=== PATIENT | male | born 1950 | race American Indian/Alaskan Native ===

== ENCOUNTER 2018-06-21 22:00 | Inpatient (IN) | payer MEDICARE ==
--- NOTE | 2018-06-21 22:45 | Emergency Department Report ---
HPI - General Chief Complaint: Back Pain/Injury Time Seen by Provider: 06/21/18 22:16 - HPI HPI: 68-year-old male presents to the emergency department by EMS from home with complaint of having some shakes and/or bodily convulsions that been going on for the past 3 days. He says that he had a fall on Friday as well but did not have any loss of consciousness or hit his head. The shakes and /or convulsions of them going on since that time but he is unsure whether they are related. He has a past medical history of end-stage renal disease on hemodialysis on Friday//Friday, hypertension, previous pulmonary embolism. He missed his last dialysis session yesterday. He has not taken anything for his symptoms prior to presentation. His primary care physician is Dr. 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 No recent travel or sick contacts at home. ED Past Medical Hx - Past Medical History Previous Medical History?: Yes Hx Hypertension: No Hx Heart Attack/AMI: No Hx Congestive Heart Failure: No Hx Diabetes: Yes Hx Deep Vein Thrombosis: No Hx Pulmonary Embolism: No Hx Liver Disease: No Hx Renal Disease: Yes Hx Arthritis: No Hx Seizures: No Hx Kidney Stones: No Hx Asthma: No Hx COPD: No Hx Tuberculosis: No Hx Dementia: No Hx HIV: No Additional medical history: dialysis - Surgical History Past Surgical History?: Yes Hx Coronary Stent: No Hx Pacemaker: No Hx Internal Defibrillator: No Hx Cholecystectomy: Yes Additional Surgical History: right chest perm cath, rotator cuff repair, carpal tunnel surgery - Social History Smoking Status: Former Smoker Substance Use Type: None - Medications Home Medications: Home Medications Medication Instructions Recorded Confirmed Last Taken Type Combivent Inhaler 18 - 103 inhalation INHALATION BID 04/12/17 06/22/18 05/24/17 History Crestor 20 mg PO QHS 04/12/17 06/22/18 05/24/17 History Omeprazole 20 mg PO QAM 04/12/17 06/22/18 05/24/17 History Sodium Bicarbonate 650 mg PO TID 04/12/17 06/22/18 05/24/17 History AtorvaSTATin [Lipitor] 40 mg PO QHS tablet 04/16/17 06/22/18 04/25/17 23:00 Rx 40 mg Detemir (Nf) [Levemir (Nf)] 8 units SUB-Q QAMDIAB units 04/16/17 05/25/1705/24 Rx Detemir (Nf) [Levemir (Nf)] 8 units SUB-Q QHS units 04/16/17 06/22/18 05/24/17 Rx HYDROcodone/APAP 5-325 1 mg PO Q6HR PRN #7 04/16/17 06/22/18 05/12/17 16:00 Rx 1 tablet Apixaban [Eliquis] 10 mg PO Q12HR 6 Days tablet 05/20/17 05/25/17 Unknown Rx Pantoprazole [Protonix TAB] 20 mg PO QDAY #30 tablet. 05/20/17 06/22/18 Rx Dicyclomine [Bentyl] 10 mg PO QID #30 capsule 05/21/17 06/22/18 05/24/17 Rx Cholestyramine (with Sugar) 4 gm PO QDAY #30 mo 05/26/17 06/22/18 Unknown Rx [Questran] Loperamide [Imodium] 2 mg PO Q2H PRN #30 capsule 05/26/17 06/22/18 Unknown Rx Loperamide [Imodium] 2 mg PO Q2HR #60 capsule 05/26/17 06/22/18 Unknown Rx Midodrine [Proamatine] 5 mg PO DAILY #30 tablet 05/26/17 06/22/18 Unknown Rx Apixaban [Eliquis] 5 mg PO BID #60 tablet 05/27/17 06/22/18 Unknown Rx ED Review of Systems ROS: Stated complaint: BACK PAIN/MUSCLE SPASMS Other details as noted in HPI Comment: All other systems reviewed and negative Constitutional: denies: chills, fever Eyes: denies: eye pain, eye discharge, vision change ENT: denies: ear pain, throat pain Respiratory: cough. denies: shortness of breath, wheezing Cardiovascular: denies: chest pain, palpitations Gastrointestinal: denies: abdominal pain, nausea, diarrhea Genitourinary: denies: urgency, dysuria Musculoskeletal: denies: back pain, joint swelling, arthralgia Skin: denies: rash, lesions Neurological: other (shakes/convulsions). denies: headache Physical Exam - Physical Exam Vital Signs: Vital Signs 06/21/18 22:20 Temperature 98.7 F Pulse Rate 92 H Respiratory 18 Rate Blood Pressure 136/107 O2 Sat by Pulse 100 Oximetry Physical Exam: GENERAL: The patient is well-developed well-nourished. HENT: Normocephalic. Atraumatic. Patient has moist mucous membranes. EYES: Extraocular motions are intact. Pupils equal reactive to light bilaterally. NECK: Supple. Trachea is midline. CHEST/LUNGS: Clear to auscultation. There is no respiratory distress noted. HEART/CARDIOVASCULAR: Regular. There is no tachycardia. There is no murmur. ABDOMEN: Abdomen is soft, nontender. Patient has normal bowel sounds. There is no abdominal distention. SKIN: Skin is warm and dry. NEURO: The patient is awake, alert, and oriented. The patient is cooperative. The patient has normal speech. Cranial nerves II through XII grossly intact. No facial asymmetry. The patient has a tremor or tic to the head and shoulders. No pronator drift. No dysmetria. MUSCULOSKELETAL: There is no tenderness or deformity. There is no limitation range of motion. There is no evidence of acute injury. ED Course Vital Signs 06/21/18 22:20 Temperature 98.7 F Pulse Rate 92 H Respiratory 18 Rate Blood Pressure 136/107 O2 Sat by Pulse 100 Oximetry - Consultations Consultation #1: I spoke to Dr. Felix who is going to arrange for the patient to receive emergent dialysis this evening. 06/22/18 04:14 ED Medical Decision Making - Lab Data Result diagrams: 06/21/18 23:39 06/21/18 23:39 - EKG Data -: EKG Interpreted by Me EKG shows normal: sinus rhythm, axis, intervals, QRS complexes (low-voltage, Q waves to the septal leads), ST-T waves Rate: normal - EKG Data When compared to previous EKG there are: no significant change Interpretation: unchanged when compared t (05/24/17) - Radiology Data Radiology results: report reviewed, image reviewed interpreted by me: Chest x-ray shows some cardiomegaly and some mild pulmonary vascular congestion. No obvious pleural effusions. X-ray of the right hand and the right index finger do not show any fracture, dislocation or any signs of osteomyelitis. PROCEDURE: CT HEAD/BRAIN WO CON TECHNIQUE: Computerized tomography of the head was performed without contrast material. HISTORY: fall, dizziness COMPARISON: No prior studies are available for comparison. FINDINGS: Brain: There is no evidence of intracranial hemorrhage. No parenchymal hemorrhage is seen. No mass lesions or mass effect is identified. No abnormal extra-axial fluid collections or masses are seen. There is a small old lacunar infarct again visualized in the right thalamus. There also appears to be an old lacunar infarct in the right side of the joanie. There is some decreased density seen in the periventricular white matter without mass effect. This is fairly symmetric and does not exhibit any mass effect consistent with gliosis probably on the basis of microvascular disease or white matter changes of aging. Ventricles: The ventricles, sulcal pattern and fissures are prominent consistent with atrophy. Bones: No evidence of acute fracture. Paranasal sinuses: Nodular mucosal thickening is seen in the floor of the right maxillary sinus. There is an individual nodule also visualized measuring 1.5 centimeters suggesting a mucous retention cyst. Paranasal sinuses otherwise appear clear. Mastoid air cells: clear IMPRESSION: Stable exam. No evidence of intracranial hemorrhage or skull fracture. Small old lacunar infarcts are visualized. There is evidence of mild atrophy and gliosis. Mild paranasal sinus disease as described. Transcribed By: ISAMAR Dictated By: AIDA VIDALES MD Electronically Authenticated By: AIDA VIDALES MD Signed Date/Time: 06/21/18 3075 - Medical Decision Making Patient presents with a complaint of having a fall 2 days ago and since that time having some type of uncontrollable tremor and/or "convulsions." He does appear to have some type of tremor or tic to the head and shoulders. Otherwise there does not appear to be any slurred speech, sensory deficits or any other acute focal deficits. CT of the head does not show any bleed, shift, mass or any other acute process. The patient has missed his last 2 dialysis sessions and this is apparent on his labs as he has renal failure, uremia, hyperkalemia. Patient was given some albuterol, calcium gluconate and Kayexalate. Nephrology was contacted and the patient will get emergent dialysis this evening. Patient has been accepted for admission by the hospitalist, Dr. Rider. - Differential Diagnosis uremia, hyperkalemia, MS, CVA Critical Care Time: No Critical care attestation.: If time is entered above; I have spent that time in minutes in the direct care of this critically ill patient, excluding procedure time. ED Disposition Clinical Impression: End-stage renal disease needing dialysis, Hyperkalemia, Uremia, Involuntary movements Hypertension Qualifiers: Hypertension type: essential hypertension Qualified Code(s): I10 - Essential ( primary) hypertension Disposition: OP ADMIT IP TO THIS HOSP Is pt being admited?: Yes Condition: Fair Instructions: Hypertension (ED) Referrals: PRIMARY CARE, [Primary Care Provider] - 3-5 Days Time of Disposition: 04:18
--- NOTE | 2018-06-21 23:30 | Cat Scan Report ---
FINAL REPORT PROCEDURE: CT HEAD/BRAIN WO CON TECHNIQUE: Computerized tomography of the head was performed without contrast material. HISTORY: fall, dizziness COMPARISON: No prior studies are available for comparison. FINDINGS: Brain: There is no evidence of intracranial hemorrhage. No parenchymal hemorrhage is seen. No mass lesions or mass effect is identified. No abnormal extra-axial fluid collections or masses are seen. There is a small old lacunar infarct again visualized in the right thalamus. There also appears to be an old lacunar infarct in the right side of the joanie. There is some decreased density seen in the periventricular white matter without mass effect. This is fairly symmetric and does not exhibit any mass effect consistent with gliosis probably on the basis of microvascular disease or white matter changes of aging. Ventricles: The ventricles, sulcal pattern and fissures are prominent consistent with atrophy. Bones: No evidence of acute fracture. Paranasal sinuses: Nodular mucosal thickening is seen in the floor of the right maxillary sinus. There is an individual nodule also visualized measuring 1.5 centimeters suggesting a mucous retention cyst. Paranasal sinuses otherwise appear clear. Mastoid air cells: clear IMPRESSION: Stable exam. No evidence of intracranial hemorrhage or skull fracture. Small old lacunar infarcts are visualized. There is evidence of mild atrophy and gliosis. Mild paranasal sinus disease as described.
--- NOTE | 2018-06-21 23:42 | XRay Report ---
FINAL REPORT PROCEDURE: XR CHEST 1V AP TECHNIQUE: Chest radiograph anteroposterior view. CPT 32881 HISTORY: cough COMPARISON: Prior chest x-ray 05/17/2017 FINDINGS: Central venous line seen on the prior study has been removed. There is no pneumothorax. The heart is magnified due to projection probably upper normal size. There is chronic increased interstitial markings throughout both lungs suggesting fibrosis. There is superimposed patchy density present in the right perihilar region extending into the right base suggesting superimposed atelectasis or pneumonia. Apical pleural scarring again visualized in the apex of the right lung with deviation of the trachea to the right. There is new pleural thickening or pleural fluid visualized in the lower half of the right marcelle thorax. No acute bony abnormalities are identified IMPRESSION: Chronic pulmonary fibrosis suspected with superimposed atelectasis or infiltrate right perihilar region extending into right lower lung field. New small right effusion versus pleural thickening lower half right hemithorax. Stable pleural/parenchymal density apex right lung suggesting scarring..
[2018-06-22 00:19] LABS: Basophils # (Auto) 0.1 K/mm3 (0.0-0.1); Basophils % (Auto) 0.8 % (0.0-1.8); Eosinophils # (Auto) 0.2 K/mm3 (0.0-0.4); Hematocrit 33.5 % (35.5-45.6); Hemoglobin 11.1 gm/dl (11.8-15.2); Lymphocytes # (Auto) 1.6 K/mm3 (1.2-5.4); Lymphocytes % (Auto) 21.2 % (13.4-35.0); Mean Corpuscular HGB Conc 33 % (32-34); Mean Corpuscular Hemoglobin 29 pg (28-32); Mean Corpuscular Volume 88 fl (84-94); Monocytes # (Auto) 0.9 K/mm3 (0.0-0.8); Monocytes % (Auto) 11.9 % (0.0-7.3); Platelet Count 208 K/mm3 (140-440); Red Blood Count 3.78 M/mm3 (3.65-5.03); Red Cell Distribution Width 16.2 % (13.2-15.2)
[2018-06-22 00:44] LABS: Albumin 3.5 g/dL (3.9-5); Calcium 8.4 mg/dL (8.4-10.2)
[2018-06-22] MEDS ORDERED: PROVENTIL IH ONE (01:21)
[2018-06-22] MEDS ORDERED: CALCIUM GLUCONATE 1,000 MG in NACL 0.9% 100 ML IV ONE (01:21)
[2018-06-22] MEDS ORDERED: KIONEX PO ONE (01:21)
--- NOTE | 2018-06-22 01:47 | XRay Report ---
FINAL REPORT EXAM: XR Right Fingers CLINICAL INDICATIONS: RT INDEX FINGER INFECTION FINDINGS: PA, lateral and oblique views of the right hand were acquired with attention to the second digit. No fracture is seen in the right hand. There is some soft tissue swelling of the second digit. No definite evidence of osteomyelitis is seen. There is atherosclerosis of the arterial vasculature. IMPRESSION: NO FRACTURE OR EVIDENCE OF OSTEOMYELITIS IS SEEN IN THE RIGHT HAND OR SECOND DIGIT
[2018-06-22] MEDS ORDERED: SODIUM BICARBONATE IV ONE ×2 (02:16→02:21)
[2018-06-22] MEDS ORDERED: APRESOLINE IV PRN (02:19)
--- NOTE | 2018-06-22 02:19 | History and Physical Report ---
History of Present Illness Date of examination: 06/22/18 History of present illness: History this 71-year-old male with a history of end-stage renal disease on dialysis Friday, Friday, diabetes, anemia, clinically, cirrhosis, chronic diarrhea, hepatitis C post emergency room because of clotting with home 2 days ago, he fell and passed out, unclear how long. He missed 2 sessions of dialysis. Started having these jerky movements of his body Review of systems Constitutional: no weight loss, chills, fever Ears, eyes, nose, mouth and throat: no nasal congestion, no nasal discharge, no sinus pressure, no vision change, no red eye. Neck: No neck pain or rigidity. Cardiovascular: no chest pain, palpitations Respiratory: no cough, shortness of breath Gastrointestinal: no abdominal pain hematochezia Genitourinary : no frequency , no hematuria Musculoskeletal: no joint swelling or muscle ache Integumentary: no rash, no pruritis Neurological: no parathesias, no numbness, no focal weakness Endocrine: no cold or heat intolerance, no polyuria or polydipsia Hematologic/Lymphatic: no easy bruising, no easy bleeding, no gland swelling Allergic/Immunologic: no urticaria, no angioedema. PAST MEDICAL HISTORY: End-stage renal disease on dialysis Friday, Friday, diabetes, anemia, clinically, cirrhosis, chronic diarrhea, hepatitis C PAST SURGICAL HISTORY: Cholecystectomy SOCIAL HISTORY: No alcohol, no drugs, tobacco FAMILY HISTORY: Hypertension Medications and Allergies Allergies Allergy/AdvReac Type Severity Reaction Status Date / Time pregabalin [From Lyrica] Allergy Severe Seizure Verified 05/17/17 21:59 Home Medications Medication Instructions Recorded Confirmed Last Taken Type Combivent Inhaler 18 - 103 inhalation INHALATION BID 04/12/17 06/22/18 05/24/17 History Crestor 20 mg PO QHS 04/12/17 06/22/18 05/24/17 History Omeprazole 20 mg PO QAM 04/12/17 06/22/18 05/24/17 History Sodium Bicarbonate 650 mg PO TID 04/12/17 06/22/18 05/24/17 History AtorvaSTATin [Lipitor] 40 mg PO QHS tablet 04/16/17 06/22/18 04/25/17 23:00 Rx 40 mg Detemir (Nf) [Levemir (Nf)] 8 units SUB-Q QAMDIAB units 04/16/17 05/25/1705/24 Rx Detemir (Nf) [Levemir (Nf)] 8 units SUB-Q QHS units 04/16/17 06/22/18 05/24/17 Rx HYDROcodone/APAP 5-325 1 mg PO Q6HR PRN #7 04/16/17 06/22/18 05/12/17 16:00 Rx 1 tablet Apixaban [Eliquis] 10 mg PO Q12HR 6 Days tablet 05/20/17 05/25/17 Unknown Rx Pantoprazole [Protonix TAB] 20 mg PO QDAY #30 tablet. 05/20/17 06/22/18 Rx Dicyclomine [Bentyl] 10 mg PO QID #30 capsule 05/21/17 06/22/18 05/24/17 Rx Cholestyramine (with Sugar) 4 gm PO QDAY #30 mo 05/26/17 06/22/18 Unknown Rx [Questran] Loperamide [Imodium] 2 mg PO Q2H PRN #30 capsule 05/26/17 06/22/18 Unknown Rx Loperamide [Imodium] 2 mg PO Q2HR #60 capsule 05/26/17 06/22/18 Unknown Rx Midodrine [Proamatine] 5 mg PO DAILY #30 tablet 05/26/17 06/22/18 Unknown Rx Apixaban [Eliquis] 5 mg PO BID #60 tablet 05/27/17 06/22/18 Unknown Rx Active Meds: Active Medications Enoxaparin Sodium (Lovenox) 30 mg SUB-Q QDAY [place] Sodium Bicarbonate (Sodium Bicarbonate) 50 meq IV ONCE ONE Stop: 06/22/18 02:17 Exam - Physical Exam Narrative exam: Gen. appearance: Patient lying in bed, no apparent distress HEENT: Normocephalic, atraumatic, pupils equally round and reactive to light, extraocular movement intact, and no sclericterus,. No JVD or thyromegaly or nodule,neck supple, no carotid bruit ,mucous membranes moist, no exudate or erythema Heart: S1, S2, regular rate and rhythm Lungs: Clear bilaterally, breathing comfortable Abdomen: Positive bowel sounds, non-tender, nondistended, no organomegaly Extremity:no edema cyanosis, clubbing Skin: no rash, dry, warm Neuro: Oriented 3, cranial nerves II-12 intact, speech is fluent, motor and sensory intact - Constitutional Vitals: Temp Pulse Resp BP Pulse Ox 98.7 F 101 H 22 178/81 100 06/21/18 22:20 06/22/18 01:40 06/22/18 01:40 06/22/18 01:00 06/22/18 01:00 Results - Labs CBC & Chem 7: 06/21/18 23:39 06/21/18 23:39 Labs: Abnormal lab results 06/21/18 06/21/18 Range/Units 23:39 23:39 Hgb 11.1 L (11.8-15.2) gm/dl Hct 33.5 L (35.5-45.6) % RDW 16.2 H (13.2-15.2) % [place] % (Auto) 11.9 H (0.0-7.3) % [place] # 0.9 H (0.0-0.8) K/mm3 Potassium 6.9 H* (3.6-5.0) mmol/L Carbon Dioxide 17 L (22-30) mmol/L BUN 76 H (9-20) mg/dL Creatinine 16.6 H (0.8-1.5) mg/dL Glucose 69 L (75-100) mg/dL Magnesium 2.70 H (1.7-2.3) mg/dL AST 43 H (5-40) units/L Alkaline Phosphatase 155 H (35-129) units/L Albumin 3.5 L (3.9-5) g/dL - Imaging and Cardiology Chest x-ray: report reviewed CT Scan - head: report reviewed Assessment and Plan xray of finger reviewed Assessment Severe hyperkalemia End-stage renal disease needing dialysis diabetes cirrhosis chronic diarrhea hepatitis C Plan Admit to medicine s/p cocktail for hyperkalemia Consult renal for stat dialysis Continue appropiate outpatient medications DVT prophalaxis
[2018-06-22] MEDS ORDERED: NACL 0.9% 100 ML IV PRN ×3 (03:00→13:18)
[2018-06-22] MEDS ORDERED: SODIUM CHLORIDE FLUSH SYRINGE 10 ML IV PRN (03:12)
[2018-06-22] MEDS ORDERED: ZOFRAN IV PRN (03:12)
[2018-06-22] MEDS ORDERED: TYLENOL PO PRN (03:12)
[2018-06-22 05:12] LABS: Hepatitis A Antibody IgM Non-Reactive (NonReactive); Hepatitis B Core IgM Non-Reactive (NonReactive); Hepatitis B Surface Antigen Non-Reactive (Negative); Hepatitis C Virus Antibody Reactive (NonReactive)
[2018-06-22] MEDS: LOVENOX SUB-Q SCH (10:00)
[2018-06-22] MEDS: SODIUM CHLORIDE FLUSH SYRINGE 10 ML IV SCH ×2 (10:01→22:30)
--- NOTE | 2018-06-22 12:30 | Consultation ---
History of Present Illness - Reason for Consult Consult date: 06/22/18 end stage renal disease Requesting physician: JOSUE MCGARRY - History of Present Illness History this 71-year-old male with a history of end-stage renal disease on dialysis Friday, Friday, diabetes, anemia, clinically, cirrhosis, chronic diarrhea, hepatitis C post emergency room as he fell and passed out, unclear how long. He missed 2 sessions of dialysis. Started having these jerky movements of his body Review of systems Constitutional: no weight loss, chills, fever Ears, eyes, nose, mouth and throat: no nasal congestion, no nasal discharge, no sinus pressure, no vision change, no red eye. Neck: No neck pain or rigidity. Cardiovascular: no chest pain, palpitations Respiratory: no cough, shortness of breath Gastrointestinal: no abdominal pain hematochezia Genitourinary : no frequency , no hematuria Musculoskeletal: no joint swelling or muscle ache Integumentary: no rash, no pruritis Neurological: no parathesias, no numbness, no focal weakness Endocrine: no cold or heat intolerance, no polyuria or polydipsia Hematologic/Lymphatic: no easy bruising, no easy bleeding, no gland swelling Allergic/Immunologic: no urticaria, no angioedema. Past History Past Medical History: dialysis, hypertension, liver disease, other (hep C and cirrhosis) Past Surgical History: Other (H/O AVF creation ) Social history: no significant social history Family history: no significant family history Medications and Allergies Allergies Allergy/AdvReac Type Severity Reaction Status Date / Time pregabalin [From Lyrica] Allergy Severe Seizure Verified 05/17/17 21:59 Home Medications Medication Instructions Recorded Confirmed Last Taken Type Combivent Inhaler 18 - 103 inhalation INHALATION BID 04/12/17 06/22/18 05/24/17 History Crestor 20 mg PO QHS 04/12/17 06/22/18 05/24/17 History Omeprazole 20 mg PO DAILY #0 04/12/17 06/22/18 05/24/17 History Sodium Bicarbonate 650 mg PO TID 04/12/17 06/22/18 05/24/17 History AtorvaSTATin [Lipitor] 40 mg PO QHS tablet 04/16/17 06/22/18 04/25/17 23:00 Rx 40 mg Detemir (Nf) [Levemir (Nf)] 8 units SUB-Q QAMDIAB units 04/16/17 06/22/1805/24 Rx Detemir (Nf) [Levemir (Nf)] 8 units SUB-Q QHS units 04/16/17 06/22/18 05/24/17 Rx HYDROcodone/APAP 5-325 1 mg PO Q6HR PRN #7 04/16/17 06/22/18 05/12/17 16:00 Rx 1 tablet Apixaban [Eliquis] 10 mg PO Q12HR 6 Days tablet 05/20/17 06/22/18 Unknown Rx Pantoprazole [Protonix TAB] 20 mg PO QDAY #30 tablet. 05/20/17 06/22/18 Rx Dicyclomine [Bentyl] 10 mg PO QID #30 capsule 05/21/17 06/22/18 05/24/17 Rx Cholestyramine (with Sugar) 4 gm PO QDAY #30 mo 05/26/17 06/22/18 Unknown Rx [Questran] Loperamide [Imodium] 2 mg PO Q2H PRN #30 capsule 05/26/17 06/22/18 Unknown Rx Loperamide [Imodium] 2 mg PO Q2HR #60 capsule 05/26/17 06/22/18 Unknown Rx Midodrine [Proamatine] 5 mg PO DAILY #30 tablet 05/26/17 06/22/18 Unknown Rx Apixaban [Eliquis] 5 mg PO BID #60 tablet 05/27/17 06/22/18 Unknown Rx Active Meds: Active Medications Acetaminophen (Tylenol) 650 mg PO Q4H PRN PRN Reason: Pain MILD(1-3)/Fever >100.5/HERRERA Enoxaparin Sodium (Lovenox) 30 mg SUB-Q QDAY [facility] Last Admin: 06/22/18 10:00 Dose: 30 mg Hydralazine HCl (Apresoline) 5 mg IV Q6H PRN PRN Reason: Hypertension Sodium Chloride (Nacl 0.9%) 100 mls @ 999 mls/hr IV LEE PRN PRN Reason: Hypotension Ondansetron HCl (Zofran) 4 mg IV Q8H PRN PRN Reason: Nausea And Vomiting Sodium Chloride (Sodium Chloride Flush Syringe 10 Ml) 10 ml IV BID [facility] Last Admin: 06/22/18 10:01 Dose: 10 ml Sodium Chloride (Sodium Chloride Flush Syringe 10 Ml) 10 ml IV PRN PRN PRN Reason: LINE FLUSH Review of Systems All systems: negative (as noted in HPI) Exam - Vital Signs Vital signs: Vital Signs BP 127/73 06/21/18 20:05 - General Appearance General appearance: well-developed, well-nourished, appears stated age EENT: PERRL, mucous membranes moist Neck: Present: neck supple, trachea midline. Absent: JVD/HJR, Masses Respiratory: Ronchi Heart: regular Gastrointestinal: Present: normal. Absent: tenderness, distended, masses, guarding Integumentary: other (1+ edema . AVF left UE . Good bruit and thrill ) Results - Lab Results 06/21/18 23:39 06/21/18 23:39 Most recent lab results Calcium 8.4 mg/dL (8.4-10.2) 06/21/18 23:39 Magnesium 2.70 mg/dL (1.7-2.3) H 06/21/18 23:39 Assessment and Plan impression * Hyperkalemia * ESRD * Anemia * Hypertension * Diabetes * Hepatitis C with liver cirrhosis Recommendation * Patient is s/p urgent dialysis early this morning * Schedule patient for dialysis tomorrow * Continue HD on TTS schedule * epogen with dialysis * binders with diet * adjust diet and meds for ESRD * Avoid nephrotoxins * Thanks, Shall follow with you
--- NOTE | 2018-06-22 17:06 | Event Note ---
Date: 06/22/18 Patient reevaluated Doing well 159/80 Hyperkalemia treated--posttreatment labs are not available--reordered
[2018-06-22 21:07] LABS: Calcium 8.6 mg/dL (8.4-10.2)
[2018-06-23 07:21] LABS: Basophils % (Auto) 0.4 % (0.0-1.8); Eosinophils # (Auto) 0.1 K/mm3 (0.0-0.4); Eosinophils % (Auto) 0.9 % (0.0-4.3); Hematocrit 31.6 % (35.5-45.6); Hemoglobin 10.3 gm/dl (11.8-15.2); Mean Corpuscular HGB Conc 33 % (32-34); Mean Corpuscular Hemoglobin 29 pg (28-32); Mean Corpuscular Volume 89 fl (84-94); Monocytes # (Auto) 1.3 K/mm3 (0.0-0.8); Monocytes % (Auto) 15.7 % (0.0-7.3); Platelet Count 177 K/mm3 (140-440); Red Blood Count 3.56 M/mm3 (3.65-5.03); Red Cell Distribution Width 16.2 % (13.2-15.2)
[2018-06-23 07:44] LABS: Calcium 8.3 mg/dL (8.4-10.2)
[2018-06-23] MEDS: LOVENOX SUB-Q SCH (09:21)
[2018-06-23] MEDS: SODIUM CHLORIDE FLUSH SYRINGE 10 ML IV SCH ×2 (09:25→23:00)
--- NOTE | 2018-06-23 10:36 | Progress Note ---
Assessment and Plan Severe hyperkalemia End-stage renal disease needing dialysis diabetes cirrhosis chronic diarrhea hepatitis C Plan s/p cocktail for hyperkalemia Consult renal for stat dialysis Continue appropiate outpatient medications DVT prophalaxis Subjective Date of service: 06/23/18 Principal diagnosis: ESRD, Hyperkalemai Objective - Exam Narrative Exam: Constitutional: Well-nourished well-developed. In no distress Head: Normocephalic atraumatic Eyes: Pupils are equal round and reactive to light Nose: No enlarged turbinates, no septal deviation. Mouth: Moist mucous membranes. Neck: Supple no thyromegaly. No bruit. No JVD Heart: Regular rate and rhythm, S1-S2 abnormal. No rubs murmurs or gallop Lungs: Clear to auscultation bilaterally no rales or rhonchi Abdomen: Soft, nontender. Bowel sound are present. Extremities: No edema no cyanosis and no clubbing. Neuro: Alert oriented Oriented x3. No focal sensory or motor deficit. Skin: No rashes no hyperemic spots Psychiatry:Euthymic. Calm. - Constitutional Vitals: Vital Signs - 12hr 06/23/18 06/23/18 06/23/18 00:43 00:51 01:00 Temperature 98.9 F 98.8 F Pulse Rate 109 H 114 H Respiratory 18 20 Rate Blood Pressure 125/70 Blood Pressure 125/73 [Right] O2 Sat by Pulse 93 Oximetry 06/23/18 06/23/18 06/23/18 04:18 05:20 07:46 Temperature 98.9 F 99.0 F Pulse Rate 98 H 90 96 H Respiratory 18 18 Rate Blood Pressure 132/72 91/52 Blood Pressure 125/75 [Right] O2 Sat by Pulse 92 90 92 Oximetry - Labs CBC & Chem 7: 06/23/18 07:09 06/23/18 07:09 Labs: Abnormal lab results 06/22/18 06/22/18 06/23/18 Range/Units 15:57 19:43 07:09 RBC 3.56 L (3.65-5.03) M/mm3 Hgb 10.3 L (11.8-15.2) gm/dl Hct 31.6 L (35.5-45.6) % RDW 16.2 H (13.2-15.2) % [place] % (Auto) 15.7 H (0.0-7.3) % [place] # 1.3 H (0.0-0.8) K/mm3 Sodium 134 L (137-145) mmol/L Potassium 5.2 H D (3.6-5.0) mmol/L Chloride 94.2 L (98-107) mmol/L BUN 33 H (9-20) mg/dL Creatinine 9.3 H (0.8-1.5) mg/dL Glucose (75-100) mg/dL POC Glucose 126 H (70-105) Calcium (8.4-10.2) mg/dL 06/23/18 Range/Units 07:09 RBC (3.65-5.03) M/mm3 Hgb (11.8-15.2) gm/dl Hct (35.5-45.6) % RDW (13.2-15.2) % [place] % (Auto) (0.0-7.3) % [place] # (0.0-0.8) K/mm3 Sodium (137-145) mmol/L Potassium 5.2 H (3.6-5.0) mmol/L Chloride 96.9 L (98-107) mmol/L BUN 38 H (9-20) mg/dL Creatinine 10.1 H (0.8-1.5) mg/dL Glucose 69 L (75-100) mg/dL POC Glucose (70-105) Calcium 8.3 L (8.4-10.2) mg/dL
--- NOTE | 2018-06-23 12:54 | Progress Note ---
Assessment and Plan impression * Hyperkalemia * ESRD * Anemia * Hypertension * Diabetes * Hepatitis C with liver cirrhosis Recommendation * Patient undergoing dialysis . Tolerating well * Continue HD on TTS schedule * epogen with dialysis * binders with diet * adjust diet and meds for ESRD * Avoid nephrotoxins * Ok to discharge from renal standpoint Subjective Date of service: 06/23/18 Interval history: pt undergoing dialysis . Tolerating well Objective - Vital Signs Vital signs: Vital Signs - 12hr 06/23/18 06/23/18 06/23/18 01:00 04:18 05:20 Temperature 98.9 F Pulse Rate 114 H 98 H 90 Respiratory 18 Rate Blood Pressure 132/72 Blood Pressure 125/75 [Right] O2 Sat by Pulse 92 90 Oximetry 06/23/18 06/23/18 06/23/18 07:46 09:35 09:50 Temperature 99.0 F 98.2 F Pulse Rate 96 H 102 H 100 H Respiratory 18 18 Rate Blood Pressure 91/52 104/60 105/67 Blood Pressure [Right] O2 Sat by Pulse 92 Oximetry 06/23/18 06/23/18 06/23/18 10:00 10:15 10:30 Temperature Pulse Rate 100 H 97 H 96 H Respiratory Rate Blood Pressure 127/75 122/68 118/69 Blood Pressure [Right] O2 Sat by Pulse Oximetry 06/23/18 06/23/18 06/23/18 10:45 11:00 11:15 Temperature Pulse Rate 95 H 94 H 93 H Respiratory Rate Blood Pressure 121/70 112/63 116/67 Blood Pressure [Right] O2 Sat by Pulse Oximetry - General Appearance General appearance: well-developed, well-nourished, appears stated age EENT: PERRL, mucous membranes moist Neck: no JVD, no thyromegaly, no carotid bruit, supple Respiratory: Present: Clear to Ascultation Cardiology: regular, normal heart rate, S1S2, no murmurs Gastrointestinal: normal, normoactive bowel sounds Integumentary: no rash, other (AVF cannulated for dialysis ) - Lab 06/23/18 07:09 06/23/18 07:09 Most recent lab results Calcium 8.3 mg/dL (8.4-10.2) L 06/23/18 07:09 Magnesium 2.70 mg/dL (1.7-2.3) H 06/21/18 23:39
[2018-06-24 02:14] VITALS: BP 106/66
--- NOTE | 2018-06-24 09:32 | Progress Note ---
Assessment and Plan impression * Hyperkalemia * ESRD * Anemia * Hypertension * Diabetes * Hepatitis C with liver cirrhosis Recommendation * Patient had uneventful dialysis yesterday * Continue HD on TTS schedule * epogen with dialysis * binders with diet * adjust diet and meds for ESRD * Avoid nephrotoxins * Ok to discharge from renal standpoint Subjective Date of service: 06/24/18 Interval history: pt is comfortable today. Uneventful dialysis yesterday Objective - Vital Signs Vital signs: Vital Signs - 12hr 06/23/18 06/24/18 06/24/18 22:00 00:33 01:00 Temperature 98.5 F Pulse Rate 99 H 90 Respiratory 2 L 20 Rate Blood Pressure 106/66 O2 Sat by Pulse 92 Oximetry - General Appearance General appearance: well-developed, well-nourished, appears stated age EENT: PERRL, mucous membranes moist Neck: no JVD Respiratory: Present: Clear to Ascultation Cardiology: regular, normal heart rate Gastrointestinal: normal, normoactive bowel sounds Integumentary: other (AV fistula left arm. Good bruit and thrill) - Lab 06/23/18 07:09 06/23/18 07:09 Most recent lab results Calcium 8.3 mg/dL (8.4-10.2) L 06/23/18 07:09 Magnesium 2.70 mg/dL (1.7-2.3) H 06/21/18 23:39
--- NOTE | 2018-06-24 10:49 | Discharge Summary ---
Providers - Providers Date of Admission: 06/22/18 02:17 Date of discharge: 06/24/18 Attending physician: JAMIA RODRIGUEZ 06/22/18 01:26 Consult to Physician [CONS] Routine Comment: Consulting Provider: ALISON CALDERON Physician Instructions: Reason For Exam: Dialysis, Hyperkalemia Primary care physician: BIOCHEMICAL ENGINEER Hospitalization Reason for admission: hyperkalemia, fluid overload, ESRD with missed HD sessions , anemia of chron Condition: Fair Pertinent studies: CT scan of the head that was unremarkable for any acute event. Chest x-ray that should pulmonary fibrosis. Procedures: Hemodialysis Hospital course: History this 71-year-old male with a history of end-stage renal disease on dialysis Friday, Friday, diabetes, anemia, clinically, cirrhosis, chronic diarrhea, hepatitis C post emergency room because of clotting with home 2 days ago, he fell and passed out, unclear how long. He missed 2 sessions of dialysis. Started having these jerky movements of his body. On initial CT scan of the head was done. Findings were unremarkable for any acute event. Chest x-ray showed pulmonary fibrosis with no evidence of any fractures. No atelectasis versus infiltrate. X-ray of the right hand showed no fractures or dislocation. Consent was obtained. The patient will commence hemodialysis. Pulmonary edema improved. Hypokalemia corrected. She is being discharged today to follow from his PCP as well as the profile with a tour driver to continue his hemodialysis. Disposition: TO HOME OR SELFCARE Time spent for discharge: 35 min - Discharge Diagnoses (1) End-stage renal disease needing dialysis Status: Acute (2) HTN (hypertension) Status: Acute Qualifiers: Hypertension type: essential hypertension Qualified Code(s): I10 - Essential (primary) hypertension (3) Hyperkalemia Status: Acute (4) Involuntary movements Status: Acute (5) Uremia Status: Acute Core Measure Documentation - Palliative Care Palliative Care/ Comfort Measures: Not Applicable - Core Measures Any of the following diagnoses?: none Exam - Physical Exam Narrative exam: Constitutional: Well-nourished well-developed. In no distress Head: Normocephalic atraumatic Eyes: Pupils are equal round and reactive to light Nose: No enlarged turbinates, no septal deviation. Mouth: Moist mucous membranes. Neck: Supple no thyromegaly. No bruit. No JVD Heart: Regular rate and rhythm, S1-S2 abnormal. No rubs murmurs or gallop Lungs: Clear to auscultation bilaterally no rales or rhonchi Abdomen: Soft, nontender. Bowel sound are present. Extremities: No edema no cyanosis and no clubbing. Neuro: Alert oriented Oriented x3. No focal sensory or motor deficit. Skin: No rashes no hyperemic spots Psychiatry: Euthymic. Calm. - Constitutional Vitals: Temp Pulse Resp BP Pulse Ox 98.5 F 90 20 106/66 92 06/24/18 00:33 06/24/18 01:00 06/24/18 00:33 06/24/18 00:33 06/24/18 00:33 Plan Activity: advance as tolerated Weight Bearing Status: Weight Bear as Tolerated Diet: renal Follow up with: PRIMARY CARE, [Primary Care Provider] - 3-5 Days Prescriptions: Detemir (Nf) [Levemir (Nf)] 8 units SUB-Q QAMDIAB #6 units Dicyclomine [Bentyl] 10 mg PO QID #30 capsule HYDROcodone/APAP 5-325 1 mg PO Q6HR PRN #7 PRN Reason: Pain , Severe (7-10)
[2018-06-24] MEDS: LOVENOX SUB-Q SCH (11:03)
== END 2018-06-24 15:40 | disposition home or self-care (01) | DRG 640 ==
LOC: ED 22:00 → 4A 06-22 02:17
PROVIDERS: ADMIT Internal Medicine; ATTEND Family Medicine
PROC: 5A1D70Z Performance of Urinary Filtration, Intermittent, Less than 6 Hours Per Day (ICD-10-PCS; principal; 2018-06-22)
PROC: 5A1D70Z Performance of Urinary Filtration, Intermittent, Less than 6 Hours Per Day (ICD-10-PCS; 2018-06-22)
DX: E87.5 Hyperkalemia (principal); N18.6 End stage renal disease; I12.0 Hypertensive chronic kidney disease with stage 5 chronic kidney disease or end stage renal disease; K74.60 Unspecified cirrhosis of liver; B19.20 Unspecified viral hepatitis C without hepatic coma; D63.8 Anemia in other chronic diseases classified elsewhere; W18.39XA Other fall on same level, initial encounter; E11.22 Type 2 diabetes mellitus with diabetic chronic kidney disease; K52.9 Noninfective gastroenteritis and colitis, unspecified; Z86.711 Personal history of pulmonary embolism; Z79.01 Long term (current) use of anticoagulants; Z99.2 Dependence on renal dialysis; Z95.828 Presence of other vascular implants and grafts; Z87.891 Personal history of nicotine dependence; Z79.899 Other long term (current) drug therapy; Z90.49 Acquired absence of other specified parts of digestive tract; Z82.49 Family history of ischemic heart disease and other diseases of the circulatory system; Z88.6 Allergy status to analgesic agent; Z91.15 Patient's noncompliance with renal dialysis; Y93.89 Activity, other specified; Y92.098 Other place in other non-institutional residence as the place of occurrence of the external cause; Y99.8 Other external cause status
CPT/HCPCS: 36415; 70450; 71045; 80048; 80053; 80074; 82962; 83735; 84443; 85025; 93005; 93010; 94640; 96374; 96375; J0610; J1650

== ENCOUNTER 2018-08-08 11:07 | Inpatient (IN) | payer MEDICARE ==
[2018-08-08] MEDS ORDERED: NACL 0.9% 1000 ML 1,000 ML IV ONE (11:34)
[2018-08-08] MEDS ORDERED: MORPHINE IV ONE (11:59)
[2018-08-08 12:10] LABS: Hematocrit 38.3 % (35.5-45.6); Hemoglobin 12.2 gm/dl (11.8-15.2); Mean Corpuscular HGB Conc 32 % (32-34); Mean Corpuscular Hemoglobin 29 pg (28-32); Mean Corpuscular Volume 90 fl (84-94); Platelet Count 266 K/mm3 (140-440); Red Blood Count 4.27 M/mm3 (3.65-5.03)
[2018-08-08 12:29] LABS: Albumin 3.9 g/dL (3.9-5); Calcium 9.4 mg/dL (8.4-10.2)
--- NOTE | 2018-08-08 12:34 | Emergency Department Report ---
HPI - General Chief Complaint: Abdominal Pain Time Seen by Provider: 08/08/18 11:59 - HPI HPI: 68-year-old -[place] male presents to the emergency department with a complaint of lower abdominal sharp pains with some radiation towards the back that has been going on since earlier this morning. The symptoms caused him to miss dialysis today. He seems to been having some issues completing dialysis recently and the daughter says that he has not had more than 3 hours of dialysis during his normal dialysis days, Friday//Friday, for the past few weeks. His hat liner is Dr. Quiñonez. He did not take anything for her symptoms prior to presentation. He has been dealing with some intermittent nausea and they say that he was at a hospital or emergency department recently for issues with nausea. He lost about 5 kg over the past week. On top of the end-stage renal disease, he has a past mental history of CHF, hypertension. His primary care physician is Dr. Sanjay Crowley. He does not make urine. No issues with bowel movements. No fever. ED Past Medical Hx - Past Medical History Hx Hypertension: No Hx Heart Attack/AMI: No Hx Congestive Heart Failure: Yes Hx Diabetes: Yes Hx Deep Vein Thrombosis: No Hx Pulmonary Embolism: No Hx Liver Disease: No Hx Renal Disease: Yes Hx Arthritis: No Hx Seizures: No Hx Kidney Stones: No Hx Asthma: Yes Hx COPD: No Hx Tuberculosis: No Hx Dementia: No Hx HIV: No Additional medical history: dialysis - Surgical History Hx Coronary Stent: No Hx Pacemaker: No Hx Internal Defibrillator: No Hx Cholecystectomy: Yes Additional Surgical History: right chest perm cath, rotator cuff repair, carpal tunnel surgery - Social History Smoking Status: Current Every Day Smoker Substance Use Type: None - Medications Home Medications: Home Medications Medication Instructions Recorded Confirmed Last Taken Type Combivent Inhaler 18 - 103 inhalation INHALATION BID 04/12/17 06/22/18 05/24/17 History Crestor 20 mg PO QHS 04/12/17 06/22/18 05/24/17 History Omeprazole 20 mg PO DAILY #0 04/12/17 06/22/18 05/24/17 History Sodium Bicarbonate 650 mg PO TID 04/12/17 06/22/18 05/24/17 History AtorvaSTATin [Lipitor] 40 mg PO QHS tablet 04/16/17 06/22/18 04/25/17 23:00 Rx 40 mg Detemir (Nf) [Levemir (Nf)] 8 units SUB-Q QHS units 04/16/17 06/22/18 05/24/17 Rx Apixaban [Eliquis] 10 mg PO Q12HR 6 Days tablet 05/20/17 06/22/18 Unknown Rx Cholestyramine (with Sugar) 4 gm PO QDAY #30 mo 05/26/17 06/22/18 Unknown Rx [Questran] Loperamide [Imodium] 2 mg PO Q2H PRN #30 capsule 05/26/17 06/22/18 Unknown Rx Loperamide [Imodium] 2 mg PO Q2HR #60 capsule 05/26/17 06/22/18 Unknown Rx Midodrine [Proamatine] 5 mg PO DAILY #30 tablet 05/26/17 06/22/18 Unknown Rx Apixaban [Eliquis] 5 mg PO BID #60 tablet 05/27/17 06/22/18 Unknown Rx Detemir (Nf) [Levemir (Nf)] 8 units SUB-Q QAMDIAB #6 units 06/24/18 Unknown Rx Dicyclomine [Bentyl] 10 mg PO QID #30 capsule 06/24/18 Unknown Rx HYDROcodone/APAP 5-325 1 mg PO Q6HR PRN #7 06/24/18 Unknown Rx ED Review of Systems ROS: Stated complaint: RIGHT SIDE PAIN Other details as noted in HPI Comment: All other systems reviewed and negative Constitutional: denies: chills, fever Eyes: denies: eye pain, eye discharge, vision change ENT: denies: ear pain, throat pain Respiratory: denies: cough, shortness of breath, wheezing Cardiovascular: denies: chest pain, palpitations Gastrointestinal: abdominal pain, nausea. denies: diarrhea, constipation Genitourinary: denies: urgency, dysuria Musculoskeletal: back pain. denies: arthralgia Skin: denies: rash, lesions Neurological: denies: headache, weakness, paresthesias Physical Exam - Physical Exam Vital Signs: Vital Signs 08/08/18 11:19 Temperature 98.2 F Pulse Rate 88 Respiratory 18 Rate Blood Pressure 157/44 O2 Sat by Pulse 98 Oximetry Physical Exam: GENERAL: The patient is well-developed well-nourished. HENT: Normocephalic. Atraumatic. Patient has moist mucous membranes. EYES: Extraocular motions are intact. Pupils equal reactive to light bilaterally. NECK: Supple. Trachea is midline. CHEST/LUNGS: Clear to auscultation. There is no respiratory distress noted. HEART/CARDIOVASCULAR: Regular. There is no tachycardia. There is no murmur. ABDOMEN: Abdomen is soft. Tenderness palpation to the lower quadrant of the abdomen. No guarding. Patient has normal bowel sounds. There is no abdominal distention. SKIN: Skin is warm and dry. NEURO: The patient is awake, alert and cooperative. The patient has no focal neurologic deficits. The patient has normal speech. MUSCULOSKELETAL: There is no tenderness or deformity. There is no limitation range of motion. There is no evidence of acute injury. ED Course Vital Signs 08/08/18 11:19 Temperature 98.2 F Pulse Rate 88 Respiratory 18 Rate Blood Pressure 157/44 O2 Sat by Pulse 98 Oximetry ED Medical Decision Making - Lab Data Result diagrams: 08/08/18 11:43 08/08/18 11:43 - Radiology Data Radiology results: report reviewed EXAM: CT ABDOMEN PELVIS WO CON HISTORY: [id number] sharp abd pains , prior cholecystectomy and hysterectomy TECHNIQUE: CT examination of the ABDOMEN without IV contrast CT examination of the PELVIS without IV contrast PRIORS: 04/08/2017 FINDINGS: New nonspecific subpleural consolidation in the anterior right middle lobe. Slightly less prominent consolidation is also new in the posterior right lower lobe. Slight increased prominence of vascular and interstitial markings, nonspecific. No definite pleural effusion. Patient arm in the diagnostic [id number] degrades image quality and limits the examination. Prominent right subareolar soft tissue may reflect gynecomastia. Surgically absent gallbladder. Again noted is enlarged liver with slightly nodular liver capsule. No CT evidence of focal liver lesion. Findings may reflect cirrhosis. Normal-appearing adrenals, pancreas, and spleen. Normal caliber abdominal aorta with severe calcified atherosclerotic plaque. Normal caliber IVC. Atherosclerotic calcification in both kidneys. No definite evidence of calculus or hydronephrosis. No proximal ureteral distention. Distal ureters are obscured by adjacent anatomy and beam hardening artifact from patient's arms. Very small fat containing umbilical hernia. No inguinal hernia. No retroperitoneal adenopathy. No visible mesenteric mass. Normal-appearing duodenum. All oral contrast is retained within the stomach with none progressing distally into the small intestine. Correlate with timing oral contrast since this may reflect gastroparesis. No small bowel distention in the abdomen and pelvis. In the pelvis, several loops of small bowel contain nonspecific mural thickening. No pelvic free fluid. Normal-appearing urinary bladder, prostate, and seminal vesicles. Scattered prominence of gas and stool from cecum to rectum may reflect constipation and/or paralytic ileus. No gross ascites or free air. Normal-appearing terminal ileum. IMPRESSION: Right lower lung consolidations may be atelectasis and/or pneumonia. Differential includes lung new neoplasm. Slight increased prominence of interstitial markings in both lung bases may reflect increased scarring. Prominent lung base vessels may reflect vascular congestion. Nonspecific new mural thickening within pelvic small bowel loops may be edema, inflammation, or enteritis. Differential includes ischemia. Prominent right subareolar soft tissue may reflect gynecomastia Oral contrast has not exited the stomach. Correlate with timing oral contrast since this may reflect gastroparesis New scattered prominence of gas and stool from cecum to rectum may reflect constipation and/or paralytic ileus Transcribed By: BAL Dictated By: GUERDA MATA MD Electronically Authenticated By: GUERDA MATA MD Signed Date/Time: 08/08/18 1524 EXAM: XR CHEST 1V AP HISTORY: cough TECHNIQUE: Frontal portable examination of the chest PRIORS: 06/21/2018 FINDINGS: Stable bilateral multifocal pleural and parenchymal scarring. Stable pleural thickening right lung apex and lateral right lung. Stable nonspecific right tracheal deviation may be related to right upper lobe volume loss. There is no visible new pulmonary consolidation, pleural effusion, or pneumothorax. Cardiac silhouette size is normal without radiographically visible vascular congestion. No visible acute displaced fracture in the regional skeleton. IMPRESSION: No acute cardiopulmonary disease in the visualized chest Stable extensive pleural and parenchymal scar Transcribed By: BAL Dictated By: GUERDA MATA MD Electronically Authenticated By: GUERDA MATA MD Signed Date/Time: 08/08/18 1454 EXAM: CT HEAD/BRAIN WO CON HISTORY: confusion TECHNIQUE: CT examination of the head without IV contrast PRIORS: 06/21/2018 FINDINGS: Moderate right and slight left maxillary sinus mucosal thickening appears unchanged. Chronic slight mucosal thickening bilateral frontoethmoidal recess. Otherwise clear paranasal sinuses, mastoid air cells, and middle ear cavities. Stable small chronic lacunar infarcts in right jaonie, right thalamus, and right basal ganglia. Stable atherosclerotic vascular calcification in the vertebral arteries and carotid siphons. No acute air-fluid level visualized in the included air-filled sinuses. Bone windows demonstrate no acute fracture. There is ventricular and sulcal prominence compatible with global cerebrocortical atrophy. The brain contains no mass, mass effect, hemorrhage, or acute infarct. There is no extra-axial intracranial bleed, brain bleed, or midline shift. IMPRESSION: No acute CVA, intracranial bleed, or brain mass Stable small chronic lacunar infarcts in right joanie, right thalamus, and right basal ganglia Stable slight paranasal sinus disease without acute fluid level Transcribed By: BAL Dictated By: GUERDA MATA MD Electronically Authenticated By: GUERDA MATA MD Signed Date/Time: 08/08/18 2920 - Medical Decision Making This patient presents to the emergency department with complaint of lower abdominal pain. However his family member/granddaughter, says that he has been having some issues with confusion where he has been taking double doses of medication by accident and being very forgetful. A chest x-ray was done to evaluate whether the patient could be volume overloaded as he has missed his dialysis recently but there is no significant pleural effusion, pneumothorax, focal consolidation. A CT of the abdomen and pelvis with oral contrast was done that does not show any etiology of his lower abdominal pain but may show some signs of gastroparesis and also a concern for right lower lobe infiltrate. Blood culture sent and the patient was started on antibiotics. Nephrology was contacted to let them know that the patient will receive a dose of Kayexalate and may need dialysis tomorrow and they have agreed to see the patient has a consultation. Patient accepted for admission by the hospitalist, Dr. Arndt. Critical Care Time: No Critical care attestation.: If time is entered above; I have spent that time in minutes in the direct care of this critically ill patient, excluding procedure time. ED Disposition Clinical Impression: Altered mental status, Hyperkalemia, Hyperammonemia, ESRD needing dialysis Pneumonia Qualifiers: Pneumonia type: due to unspecified organism Laterality: right Lung location: lower lobe of lung Qualified Code(s): J18.1 - Lobar pneumonia, unspecified organism Disposition: DC-[id number] OP ADMIT IP TO THIS HOSP Is pt being admited?: Yes Condition: Fair
[2018-08-08 13:39] LABS: Band Neutrophils # (Manual) 0.1 K/mm3; Basophils % (Manual) 0 % (0.0-1.8); Total Cells Counted 100
[2018-08-08 13:40] LABS: Anisocytosis Few
--- NOTE | 2018-08-08 14:51 | Cat Scan Report ---
FINAL REPORT EXAM: CT HEAD/BRAIN WO CON HISTORY: confusion TECHNIQUE: CT examination of the head without IV contrast PRIORS: 06/21/2018 FINDINGS: Moderate right and slight left maxillary sinus mucosal thickening appears unchanged. Chronic slight mucosal thickening bilateral frontoethmoidal recess. Otherwise clear paranasal sinuses, mastoid air cells, and middle ear cavities. Stable small chronic lacunar infarcts in right joanie, right thalamus, and right basal ganglia. Stable atherosclerotic vascular calcification in the vertebral arteries and carotid siphons. No acute air-fluid level visualized in the included air-filled sinuses. Bone windows demonstrate no acute fracture. There is ventricular and sulcal prominence compatible with global cerebrocortical atrophy. The brain contains no mass, mass effect, hemorrhage, or acute infarct. There is no extra-axial intracranial bleed, brain bleed, or midline shift. IMPRESSION: No acute CVA, intracranial bleed, or brain mass Stable small chronic lacunar infarcts in right joanie, right thalamus, and right basal ganglia Stable slight paranasal sinus disease without acute fluid level
--- NOTE | 2018-08-08 14:55 | XRay Report ---
FINAL REPORT EXAM: XR CHEST 1V AP HISTORY: cough TECHNIQUE: Frontal portable examination of the chest PRIORS: 06/21/2018 FINDINGS: Stable bilateral multifocal pleural and parenchymal scarring. Stable pleural thickening right lung apex and lateral right lung. Stable nonspecific right tracheal deviation may be related to right upper lobe volume loss. There is no visible new pulmonary consolidation, pleural effusion, or pneumothorax. Cardiac silhouette size is normal without radiographically visible vascular congestion. No visible acute displaced fracture in the regional skeleton. IMPRESSION: No acute cardiopulmonary disease in the visualized chest Stable extensive pleural and parenchymal scar
--- NOTE | 2018-08-08 15:26 | Cat Scan Report ---
FINAL REPORT EXAM: CT ABDOMEN PELVIS WO CON HISTORY: [id number] sharp abd pains , prior cholecystectomy and hysterectomy TECHNIQUE: CT examination of the ABDOMEN without IV contrast CT examination of the PELVIS without IV contrast PRIORS: 04/08/2017 FINDINGS: New nonspecific subpleural consolidation in the anterior right middle lobe. Slightly less prominent consolidation is also new in the posterior right lower lobe. Slight increased prominence of vascular and interstitial markings, nonspecific. No definite pleural effusion. Patient arm in the diagnostic [id number] degrades image quality and limits the examination. Prominent right subareolar soft tissue may reflect gynecomastia. Surgically absent gallbladder. Again noted is enlarged liver with slightly nodular liver capsule. No CT evidence of focal liver lesion. Findings may reflect cirrhosis. Normal-appearing adrenals, pancreas, and spleen. Normal caliber abdominal aorta with severe calcified atherosclerotic plaque. Normal caliber IVC. Atherosclerotic calcification in both kidneys. No definite evidence of calculus or hydronephrosis. No proximal ureteral distention. Distal ureters are obscured by adjacent anatomy and beam hardening artifact from patient's arms. Very small fat containing umbilical hernia. No inguinal hernia. No retroperitoneal adenopathy. No visible mesenteric mass. Normal-appearing duodenum. All oral contrast is retained within the stomach with none progressing distally into the small intestine. Correlate with timing oral contrast since this may reflect gastroparesis. No small bowel distention in the abdomen and pelvis. In the pelvis, several loops of small bowel contain nonspecific mural thickening. No pelvic free fluid. Normal-appearing urinary bladder, prostate, and seminal vesicles. Scattered prominence of gas and stool from cecum to rectum may reflect constipation and/or paralytic ileus. No gross ascites or free air. Normal-appearing terminal ileum. IMPRESSION: Right lower lung consolidations may be atelectasis and/or pneumonia. Differential includes lung new neoplasm. Slight increased prominence of interstitial markings in both lung bases may reflect increased scarring. Prominent lung base vessels may reflect vascular congestion. Nonspecific new mural thickening within pelvic small bowel loops may be edema, inflammation, or enteritis. Differential includes ischemia. Prominent right subareolar soft tissue may reflect gynecomastia Oral contrast has not exited the stomach. Correlate with timing oral contrast since this may reflect gastroparesis New scattered prominence of gas and stool from cecum to rectum may reflect constipation and/or paralytic ileus
[2018-08-08] MEDS ORDERED: KIONEX PO ONE (15:53)
[2018-08-08] MEDS ORDERED: CEPHULAC PO ONE (15:54)
[2018-08-08] MEDS ORDERED: LEVAQUIN 750MG/150ML 750 MG/150 ML BAG IV ONE (16:55)
[2018-08-08] MEDS ORDERED: IMODIUM PO PRN (23:45)
[2018-08-08] MEDS ORDERED: APAP PO PRN (23:45)
[2018-08-08] MEDS ORDERED: ELIQUIS PO SCH (23:45)
[2018-08-08] MEDS ORDERED: HYDROCODONE PO PRN (23:45)
--- NOTE | 2018-08-08 23:45 | History and Physical Report ---
History of Present Illness Date of examination: 08/08/18 Date of admission: 08/08/18 17:12 Chief complaint: CC Abdominal pain since AM History of present illness: [place]: 68 black male presents with abdominal pain since this morning.Bcoz of abdominal pain patient missed HD.Not able to complete HD last 2 to 3 weeks.Intermittent in natuere.Pain is 5/10 dull in character.Some SOB and orthopnea present.No fever or chills.No chest pain.Patient also intermittently confused.Of Late patient has been confused intermittently. Past Medical History Congestive Heart Failure IDDM Renal Disease Asthma Additional medical history: dialysis t Surgical History: Pacemaker Hx Cholecystectomy: Yes Additional Surgical History: right chest perm cath, rotator cuff repair, carpal tunnel surgery Social History Smoking Status: Current Every Day Smoker Substance Use Type: None Family History Htn - Medications Home Medications: Home Medications Medication Instructions Recorded Confirmed Last Taken Type Combivent Inhaler 18 - 103 inhalation INHALATION BID 04/12/17 06/22/18 05/24/17 History Crestor 20 mg PO QHS 04/12/17 06/22/18 05/24/17 History Omeprazole 20 mg PO DAILY #0 04/12/17 06/22/18 05/24/17 History Sodium Bicarbonate 650 mg PO TID 04/12/17 06/22/18 05/24/17 History AtorvaSTATin [Lipitor] 40 mg PO QHS tablet 04/16/17 06/22/18 04/25/17 23:00 Rx 40 mg Detemir (Nf) [Levemir (Nf)] 8 units SUB-Q QHS units 04/16/17 06/22/18 05/24/17 Rx Apixaban [Eliquis] 10 mg PO Q12HR 6 Days tablet 05/20/17 06/22/18 Unknown Rx Cholestyramine (with Sugar) 4 gm PO QDAY #30 mo 05/26/17 06/22/18 Unknown Rx [Questran] Loperamide [Imodium] 2 mg PO Q2H PRN #30 capsule 05/26/17 06/22/18 Unknown Rx Loperamide [Imodium] 2 mg PO Q2HR #60 capsule 05/26/17 06/22/18 Unknown Rx Midodrine [Proamatine] 5 mg PO DAILY #30 tablet 05/26/17 06/22/18 Unknown Rx Apixaban [Eliquis] 5 mg PO BID #60 tablet 05/27/17 06/22/18 Unknown Rx Detemir (Nf) [Levemir (Nf)] 8 units SUB-Q QAMDIAB #6 units 06/24/18 Unknown Rx Dicyclomine [Bentyl] 10 mg PO QID #30 capsule 06/24/18 Unknown Rx HYDROcodone/APAP 5-325 1 mg PO Q6HR PRN #7 06/24/18 Unknown Rx Review of Systems ROS: Stated complaint: RIGHT SIDE PAIN Other details as noted in HPI Comment: All other systems reviewed and negative Constitutional: denies: chills, fever Eyes: denies: eye pain, eye discharge, vision change ENT: denies: ear pain, throat pain Respiratory: denies: cough, shortness of breath, wheezing Cardiovascular: denies: chest pain, palpitations Gastrointestinal: abdominal pain, nausea. denies: diarrhea, constipation Genitourinary: denies: urgency, dysuria Musculoskeletal: back pain. denies: arthralgia Skin: denies: rash, lesions Neurological: denies: headache, weakness, paresthesias Medications and Allergies Allergies Allergy/AdvReac Type Severity Reaction Status Date / Time pregabalin [From Lyrica] Allergy Severe Seizure Verified 05/17/17 21:59 Home Medications Medication Instructions Recorded Confirmed Last Taken Type Combivent Inhaler 18 - 103 inhalation INHALATION BID 04/12/17 08/09/18 05/24/17 History Crestor 20 mg PO QHS 04/12/17 08/09/18 05/24/17 History Omeprazole 20 mg PO DAILY #0 04/12/17 08/09/18 05/24/17 History Sodium Bicarbonate 650 mg PO TID 04/12/17 08/09/18 05/24/17 History AtorvaSTATin [Lipitor] 40 mg PO QHS tablet 04/16/17 08/09/18 04/25/17 23:00 Rx 40 mg Detemir (Nf) [Levemir (Nf)] 8 units SUB-Q QHS units 04/16/17 08/09/18 05/24/17 Rx Apixaban [Eliquis] 10 mg PO Q12HR 6 Days tablet 05/20/17 08/09/18 Unknown Rx Cholestyramine (with Sugar) 4 gm PO QDAY #30 mo 05/26/17 08/09/18 Unknown Rx [Questran] Loperamide [Imodium] 2 mg PO Q2H PRN #30 capsule 05/26/17 08/09/18 Unknown Rx Loperamide [Imodium] 2 mg PO Q2HR #60 capsule 05/26/17 08/09/18 Unknown Rx Midodrine [Proamatine] 5 mg PO DAILY #30 tablet 05/26/17 08/09/18 Unknown Rx Apixaban [Eliquis] 5 mg PO BID #60 tablet 05/27/17 08/09/18 08/08/18 23:45 Rx 5mg Detemir (Nf) [Levemir (Nf)] 8 units SUB-Q QAMDIAB #6 units 06/24/18 08/09/18 Unknown Rx Dicyclomine [Bentyl] 10 mg PO QID #30 capsule 06/24/18 08/09/18 Unknown Rx HYDROcodone/APAP 5-325 1 mg PO Q6HR PRN #7 06/24/18 08/09/18 Unknown Rx Exam - Constitutional Vitals: Temp Pulse Resp BP Pulse Ox 98.7 F 89 18 178/90 96 08/08/18 20:21 08/08/18 20:24 08/08/18 20:21 08/08/18 20:21 08/08/18 20:24 General appearance: Present: mild distress, well-nourished - EENT Eyes: Present: PERRL ENT: hearing intact, clear oral mucosa - Neck Neck: Present: supple, normal ROM - Respiratory Respiratory effort: normal Respiratory: bilateral: CTA - Cardiovascular Heart rate: 92 Rhythm: regular Heart Sounds: Present: S1 & S2. Absent: rub, click - Extremities Extremities: no ischemia, pulses intact, pulses symmetrical, No edema Peripheral Pulses: within normal limits - Abdominal General gastrointestinal: Present: soft, non-tender, non-distended, normal bowel sounds Male genitourinary: Present: normal - Rectal Rectal Exam: deferred - Integumentary Integumentary: Present: clear, warm, dry - Musculoskeletal Musculoskeletal: gait normal, strength equal bilaterally - Psychiatric Psychiatric: appropriate mood/affect, intact judgment & insight - Neurologic Neurologic: CNII-XII intact, moves all extremities Results - Labs CBC & Chem 7: 08/08/18 11:43 08/08/18 11:43 Labs: Laboratory Last Values WBC 7.6 K/mm3 (4.5-11.0) 08/08/18 11:43 RBC 4.27 M/mm3 (3.65-5.03) 08/08/18 11:43 Hgb 12.2 gm/dl (11.8-15.2) 08/08/18 11:43 Hct 38.3 % (35.5-45.6) 08/08/18 11:43 MCV 90 fl (84-94) 08/08/18 11:43 MCH 29 pg (28-32) 08/08/18 11:43 MCHC 32 % (32-34) 08/08/18 11:43 RDW 18.0 % (13.2-15.2) H 08/08/18 11:43 Plt Count 266 K/mm3 (140-440) 08/08/18 11:43 [place] % (Auto) Transplant Rn 08/08/18 11:43 Add Manual Diff Complete 08/08/18 11:43 Total Counted 100 08/08/18 11:43 Seg Neuts % (Manual) 64.0 % (40.0-70.0) 08/08/18 11:43 Band Neutrophils % 1.0 % 08/08/18 11:43 Lymphocytes % (Manual) 22.0 % (13.4-35.0) 08/08/18 11:43 Reactive Lymphs % (Man) 0 % 08/08/18 11:43 Monocytes % (Manual) 12.0 % (0.0-7.3) H 08/08/18 11:43 Eosinophils % (Manual) 1.0 % (0.0-4.3) 08/08/18 11:43 Basophils % (Manual) 0 % (0.0-1.8) 08/08/18 11:43 Metamyelocytes % 0 % 08/08/18 11:43 Myelocytes % 0 % 08/08/18 11:43 Promyelocytes % 0 % 08/08/18 11:43 Blast Cells % 0 % 08/08/18 11:43 Nucleated RBC % Not Reportable 08/08/18 11:43 Seg Neutrophils # Man 4.9 K/mm3 (1.8-7.7) 08/08/18 11:43 Band Neutrophils # 0.1 K/mm3 08/08/18 11:43 Lymphocytes # (Manual) 1.7 K/mm3 (1.2-5.4) 08/08/18 11:43 Abs React Lymphs (Man) 0.0 K/mm3 08/08/18 11:43 Monocytes # (Manual) 0.9 K/mm3 (0.0-0.8) H 08/08/18 11:43 Eosinophils # (Manual) 0.1 K/mm3 (0.0-0.4) 08/08/18 11:43 Basophils # (Manual) 0.0 K/mm3 (0.0-0.1) 08/08/18 11:43 Metamyelocytes # 0.0 K/mm3 08/08/18 11:43 Myelocytes # 0.0 K/mm3 08/08/18 11:43 Promyelocytes # 0.0 K/mm3 08/08/18 11:43 Blast Cells # 0.0 K/mm3 08/08/18 11:43 WBC Morphology Not Reportable 08/08/18 11:43 Hypersegmented Neuts Not Reportable 08/08/18 11:43 Hyposegmented Neuts Not Reportable 08/08/18 11:43 Hypogranular Neuts Not Reportable 08/08/18 11:43 Smudge Cells Not Reportable 08/08/18 11:43 Toxic Granulation Not Reportable 08/08/18 11:43 Toxic Vacuolation Not Reportable 08/08/18 11:43 Dohle Bodies Not Reportable 08/08/18 11:43 Pelger-Huet Anomaly Not Reportable 08/08/18 11:43 Jb Rods Not Reportable 08/08/18 11:43 Platelet Estimate Not Reportable 08/08/18 11:43 Clumped Platelets Not Reportable 08/08/18 11:43 Plt Clumps, EDTA Not Reportable 08/08/18 11:43 Large Platelets Not Reportable 08/08/18 11:43 Giant Platelets Not Reportable 08/08/18 11:43 Platelet Satelliting Not Reportable 08/08/18 11:43 Plt Morphology Comment Not Reportable 08/08/18 11:43 RBC Morphology Not Reportable 08/08/18 11:43 Dimorphic RBCs Not Reportable 08/08/18 11:43 Polychromasia Not Reportable 08/08/18 11:43 Hypochromasia Not Reportable 08/08/18 11:43 Poikilocytosis Not Reportable 08/08/18 11:43 Anisocytosis Few 08/08/18 11:43 Microcytosis Not Reportable 08/08/18 11:43 Macrocytosis Not Reportable 08/08/18 11:43 Spherocytes Not Reportable 08/08/18 11:43 Pappenheimer Bodies Not Reportable 08/08/18 11:43 Sickle Cells Not Reportable 08/08/18 11:43 Target Cells Not Reportable 08/08/18 11:43 Tear Drop Cells Not Reportable 08/08/18 11:43 Ovalocytes Not Reportable 08/08/18 11:43 Helmet Cells Not Reportable 08/08/18 11:43 [place] Bodies Not Reportable 08/08/18 11:43 [place] Rings Not Reportable 08/08/18 11:43 [place] Cells Not Reportable 08/08/18 11:43 Bite Cells Not Reportable 08/08/18 11:43 Crenated Cell Not Reportable 08/08/18 11:43 Elliptocytes Not Reportable 08/08/18 11:43 Acanthocytes (Spur) Not Reportable 08/08/18 11:43 Rouleaux Not Reportable 08/08/18 11:43 Hemoglobin C Crystals Not Reportable 08/08/18 11:43 Schistocytes Not Reportable 08/08/18 11:43 Malaria parasites Not Reportable 08/08/18 11:43 [place] Bodies Not Reportable 08/08/18 11:43 Hem Pathologist Commnt No 08/08/18 11:43 Sodium 140 mmol/L (137-145) 08/08/18 11:43 Potassium 5.4 mmol/L (3.6-5.0) H 08/08/18 11:43 Chloride 96.6 mmol/L (98-107) L 08/08/18 11:43 Carbon Dioxide 26 mmol/L (22-30) 08/08/18 11:43 Anion Gap 23 mmol/L 08/08/18 11:43 BUN 35 mg/dL (9-20) H 08/08/18 11:43 Creatinine 8.3 mg/dL (0.8-1.5) H 08/08/18 11:43 Estimated GFR 8 ml/min 08/08/18 11:43 BUN/Creatinine Ratio 4 % 08/08/18 11:43 Glucose 117 mg/dL (75-100) H 08/08/18 11:43 Calcium 9.4 mg/dL (8.4-10.2) 08/08/18 11:43 Total Bilirubin 0.40 mg/dL (0.1-1.2) 08/08/18 11:43 AST 42 units/L (5-40) H 08/08/18 11:43 ALT 37 units/L (7-56) 08/08/18 11:43 Alkaline Phosphatase 149 units/L (35-129) H 08/08/18 11:43 Ammonia 74.0 umol/L (25-60) H 08/08/18 14:07 Total Protein 7.6 g/dL (6.3-8.2) 08/08/18 11:43 Albumin 3.9 g/dL (3.9-5) 08/08/18 11:43 Albumin/Globulin Ratio 1.1 % 08/08/18 11:43 Short CBC 08/08/18 Range/Units 11:43 WBC 7.6 (4.5-11.0) K/mm3 Hgb 12.2 (11.8-15.2) gm/dl Hct 38.3 (35.5-45.6) % Plt Count 266 (140-440) K/mm3 [facility] 08/08/18 11:43 Sodium 140 Potassium 5.4 H Chloride 96.6 L Carbon Dioxide 26 BUN 35 H Creatinine 8.3 H Glucose 117 H Calcium 9.4 Liver Function 08/08/18 Range/Units 11:43 Total Bilirubin 0.40 (0.1-1.2) mg/dL AST 42 H (5-40) units/L ALT 37 (7-56) units/L Alkaline Phosphatase 149 H (35-129) units/L Albumin 3.9 (3.9-5) g/dL - Imaging and Cardiology EKG: report reviewed (NSR 92/min LVH interpreted by me) Imaging and Cardiology: CXR FINDINGS: Stable bilateral multifocal pleural and parenchymal scarring. Stable pleural thickening right lung apex and lateral right lung. Stable nonspecific right tracheal deviation may be related to right upper lobe volume loss. There is no visible new pulmonary consolidation, pleural effusion, or pneumothorax. Cardiac silhouette size is normal without radiographically visible vascular congestion. No visible acute displaced fracture in the regional skeleton. IMPRESSION: No acute cardiopulmonary disease in the visualized chest Stable extensive pleural and parenchymal scar Abd CT Scan: IMPRESSION: Right lower lung consolidations may be atelectasis and/or pneumonia. Differential includes lung new neoplasm. Slight increased prominence of interstitial markings in both lung bases may reflect increased scarring. Prominent lung base vessels may reflect vascular congestion. Nonspecific new mural thickening within pelvic small bowel loops may be edema, inflammation, or enteritis. Differential includes ischemia. Prominent right subareolar soft tissue may reflect gynecomastia Oral contrast has not exited the stomach. Correlate with timing oral contrast since this may reflect gastroparesis New scattered prominence of gas and stool from cecum to rectum may reflect constipation and/or paralytic ileus Assessment and Plan Advance Directives: Yes (Full code) VTE prophylaxis?: Chemical Plan of care discussed with patient/family: Yes - Patient Problems (1) Acute encephalopathy Current Visit: Yes Status: Acute Plan to address problem: Sec to Hyperammonemia and Uremia Lactulose and Cont HD (2) Pneumonia Current Visit: Yes Status: Acute Qualifiers: Pneumonia type: due to methicillin-sensitive Staphylococcus aureus (MSSA) Laterality: right Lung location: lower lobe of lung Qualified Code(s): J15.211 - Pneumonia due to Methicillin susceptible Staphylococcus aureus Plan to address problem: Patient inited on IV Levaquin q48 No fever or cough. Radiographic diagnosis on CT Abdomen (3) End-stage renal disease needing dialysis Current Visit: Yes Status: Chronic Plan to address problem: Cont HD Nephrology consulted (4) Hyperammonemia Current Visit: Yes Status: Acute Plan to address problem: Etio unclear Will initiate Lactulose once a day (5) IDDM (insulin dependent diabetes mellitus) Current Visit: Yes Status: Chronic Plan to address problem: Cont Levemir and coverage Check A1c (6) HLD (hyperlipidemia) Current Visit: Yes Status: Chronic Qualifiers: Hyperlipidemia type: mixed hyperlipidemia Qualified Code(s): E78.2 - Mixed hyperlipidemia Plan to address problem: Cont statins (7) COPD (chronic obstructive pulmonary disease) Current Visit: Yes Status: Chronic Qualifiers: COPD type: unspecified COPD Qualified Code(s): J44.9 - Chronic obstructive pulmonary disease, unspecified Plan to address problem: Cont Combivent (8) DVT prophylaxis Current Visit: Yes Status: Acute Plan to address problem: On Heparin
[2018-08-08] MEDS ORDERED: MORPHINE IV PRN (23:49)
[2018-08-08] MEDS ORDERED: ZOFRAN IV PRN (23:49)
[2018-08-08] MEDS ORDERED: SODIUM CHLORIDE FLUSH SYRINGE 10 ML IV PRN (23:49)
[2018-08-09] MEDS: ELIQUIS PO SCH ×3 (00:39→22:04)
[2018-08-09] MEDS: PERCOCET 5/325 PO PRN ×2 (00:44→09:47)
[2018-08-09] MEDS ORDERED: CEPHULAC PO SCH (07:00)
[2018-08-09] MEDS ORDERED: CEPHULAC PR SCH (07:00)
[2018-08-09 07:02] LABS: Hematocrit 38.4 % (35.5-45.6); Hemoglobin 12.6 gm/dl (11.8-15.2); Mean Corpuscular HGB Conc 33 % (32-34); Mean Corpuscular Hemoglobin 29 pg (28-32); Mean Corpuscular Volume 89 fl (84-94); Platelet Count 241 K/mm3 (140-440); Red Cell Distribution Width 17.9 % (13.2-15.2)
[2018-08-09 07:28] LABS: Albumin 3.5 g/dL (3.9-5); Calcium 9.2 mg/dL (8.4-10.2)
[2018-08-09] MEDS ORDERED: DETEMIR SUB-Q SCH ×2 (08:00→22:00)
[2018-08-09 08:01] LABS: Band Neutrophils # (Manual) 0.2 K/mm3; Basophils % (Manual) 0 % (0.0-1.8); Monocytes % (Manual) 15 % (0.0-7.3); Total Cells Counted 100
[2018-08-09 08:02] LABS: Anisocytosis Few
[2018-08-09] MEDS: LANTUS SUB-Q SCH (08:26)
--- NOTE | 2018-08-09 09:06 | Progress Note ---
Assessment and Plan Assessment and plan: 68-year-old male with past medical history significant for end stage disease on hemodialysis presented to the emergency department complaining of abdominal pain. Patient had missed dialysis sessions because of abdominal pain Abdominal pain - CT abdomen and pelvis was done, showed nonspecific mural thickening with some pelvic small bowel loops may be edema, inflammation, or enteritis, ? gastroparesis - GI consulted End-stage renal disease on hemodialysis - Nephrology consulted Metabolic encephalopathy - Likely due to uremic encephalopathy, due to hyperammonemia - Treat the underlying uremia and patient given lactulose and ammonia level went down to normal Right-sided pneumonia - Patient is on Levaquin COPD - Continue home medications History of PE - Patient is on Eliquis Disposition - Continue inpatient care History Interval history: Patient was seen and evaluated this morning, patient was complaining diarrhea and discussed with the nurse to stop/hold lactulose. Hospitalist Physical - Physical exam Narrative exam: Not in cardiopulmonary distress. The patient appeared well nourished and normally developed. Vital signs as documented. Head exam is unremarkable. No scleral icterus . Neck is without jugular venous distension, thyromegaly, or carotid bruits. Lungs are clear to auscultation. Cardiac exam reveals regular rate and Rhythm. First and second heart sounds normal. No murmurs, rubs or gallops. Abdominal exam reveals normal bowel sounds, no masses, no organomegaly and no aortic enlargement. Extremities are nonedematous and both femoral and pedal pulses are normal. [employer]: Alert and oriented 3. No focal weakness. - Constitutional Vitals: Temp Pulse Resp BP Pulse Ox 97.5 F L 88 18 152/105 93 08/09/18 02:21 08/09/18 02:21 08/09/18 02:21 08/09/18 02:21 08/09/18 02:21 General appearance: Present: mild distress, well-nourished Results - Labs CBC & Chem 7: 08/09/18 06:48 08/09/18 06:48 Labs: Laboratory Last Values WBC 7.7 K/mm3 (4.5-11.0) 08/09/18 06:48 RBC 4.30 M/mm3 (3.65-5.03) 08/09/18 06:48 Hgb 12.6 gm/dl (11.8-15.2) 08/09/18 06:48 Hct 38.4 % (35.5-45.6) 08/09/18 06:48 MCV 89 fl (84-94) 08/09/18 06:48 MCH 29 pg (28-32) 08/09/18 06:48 MCHC 33 % (32-34) 08/09/18 06:48 RDW 17.9 % (13.2-15.2) H 08/09/18 06:48 Plt Count 241 K/mm3 (140-440) 08/09/18 06:48 [place] % (Auto) Senior Mechanical Project Manager 08/08/18 11:43 Add Manual Diff Complete 08/09/18 06:48 Total Counted 100 08/09/18 06:48 Seg Neuts % (Manual) 66 % (40.0-70.0) 08/09/18 06:48 Band Neutrophils % 2.0 % 08/09/18 06:48 Lymphocytes % (Manual) 15.0 % (13.4-35.0) 08/09/18 06:48 Reactive Lymphs % (Man) 0 % 08/09/18 06:48 Monocytes % (Manual) 15 % (0.0-7.3) H 08/09/18 06:48 Eosinophils % (Manual) 2.0 % (0.0-4.3) 08/09/18 06:48 Basophils % (Manual) 0 % (0.0-1.8) 08/09/18 06:48 Metamyelocytes % 0 % 08/09/18 06:48 Myelocytes % 0 % 08/09/18 06:48 Promyelocytes % 0 % 08/09/18 06:48 Blast Cells % 0 % 08/09/18 06:48 Nucleated RBC % Not Reportable 08/09/18 06:48 Seg Neutrophils # Man 5.0 K/mm3 (1.8-7.7) 08/09/18 06:48 Band Neutrophils # 0.2 K/mm3 08/09/18 06:48 Lymphocytes # (Manual) 1.2 K/mm3 (1.2-5.4) 08/09/18 06:48 Abs React Lymphs (Man) 0.0 K/mm3 08/09/18 06:48 Monocytes # (Manual) 1.1 K/mm3 (0.0-0.8) H 08/09/18 06:48 Eosinophils # (Manual) 0.2 K/mm3 (0.0-0.4) 08/09/18 06:48 Basophils # (Manual) 0.0 K/mm3 (0.0-0.1) 08/09/18 06:48 Metamyelocytes # 0.0 K/mm3 08/09/18 06:48 Myelocytes # 0.0 K/mm3 08/09/18 06:48 Promyelocytes # 0.0 K/mm3 08/09/18 06:48 Blast Cells # 0.0 K/mm3 08/09/18 06:48 WBC Morphology Not Reportable 08/09/18 06:48 Hypersegmented Neuts Not Reportable 08/09/18 06:48 Hyposegmented Neuts Not Reportable 08/09/18 06:48 Hypogranular Neuts Not Reportable 08/09/18 06:48 Smudge Cells Not Reportable 08/09/18 06:48 Toxic Granulation Not Reportable 08/09/18 06:48 Toxic Vacuolation Not Reportable 08/09/18 06:48 Dohle Bodies Not Reportable 08/09/18 06:48 Pelger-Huet Anomaly Not Reportable 08/09/18 06:48 Jb Rods Not Reportable 08/09/18 06:48 Platelet Estimate Not Reportable 08/09/18 06:48 Clumped Platelets Not Reportable 08/09/18 06:48 Plt Clumps, EDTA Not Reportable 08/09/18 06:48 Large Platelets Not Reportable 08/09/18 06:48 Giant Platelets Not Reportable 08/09/18 06:48 Platelet Satelliting Not Reportable 08/09/18 06:48 Plt Morphology Comment Not Reportable 08/09/18 06:48 RBC Morphology Not Reportable 08/09/18 06:48 Dimorphic RBCs Not Reportable 08/09/18 06:48 Polychromasia Not Reportable 08/09/18 06:48 Hypochromasia Not Reportable 08/09/18 06:48 Poikilocytosis Not Reportable 08/09/18 06:48 Anisocytosis Few 08/09/18 06:48 Microcytosis Not Reportable 08/09/18 06:48 Macrocytosis Not Reportable 08/09/18 06:48 Spherocytes Not Reportable 08/09/18 06:48 Pappenheimer Bodies Not Reportable 08/09/18 06:48 Sickle Cells Not Reportable 08/09/18 06:48 Target Cells Not Reportable 08/09/18 06:48 Tear Drop Cells Not Reportable 08/09/18 06:48 Ovalocytes Not Reportable 08/09/18 06:48 Helmet Cells Not Reportable 08/09/18 06:48 [place] Bodies Not Reportable 08/09/18 06:48 [place] Rings Not Reportable 08/09/18 06:48 [place] Cells Not Reportable 08/09/18 06:48 Bite Cells Not Reportable 08/09/18 06:48 Crenated Cell Not Reportable 08/09/18 06:48 Elliptocytes Not Reportable 08/09/18 06:48 Acanthocytes (Spur) Not Reportable 08/09/18 06:48 Rouleaux Not Reportable 08/09/18 06:48 Hemoglobin C Crystals Not Reportable 08/09/18 06:48 Schistocytes Not Reportable 08/09/18 06:48 Malaria parasites Not Reportable 08/09/18 06:48 [place] Bodies Not Reportable 08/09/18 06:48 Hem Pathologist Commnt No 08/09/18 06:48 Sodium 141 mmol/L (137-145) 08/09/18 06:48 Potassium 5.0 mmol/L (3.6-5.0) 08/09/18 06:48 Chloride 96.6 mmol/L (98-107) L 08/09/18 06:48 Carbon Dioxide 24 mmol/L (22-30) 08/09/18 06:48 Anion Gap 25 mmol/L 08/09/18 06:48 BUN 38 mg/dL (9-20) H 08/09/18 06:48 Creatinine 9.1 mg/dL (0.8-1.5) H 08/09/18 06:48 Estimated GFR 7 ml/min 08/09/18 06:48 BUN/Creatinine Ratio 4 % 08/09/18 06:48 Glucose 116 mg/dL (75-100) H 08/09/18 06:48 POC Glucose 91 (70-105) 08/09/18 08:22 Hemoglobin A1c 5.3 % (4-6) 08/09/18 06:48 Calcium 9.2 mg/dL (8.4-10.2) 08/09/18 06:48 Total Bilirubin 0.50 mg/dL (0.1-1.2) 08/09/18 06:48 AST 31 units/L (5-40) 08/09/18 06:48 ALT 34 units/L (7-56) 08/09/18 06:48 Alkaline Phosphatase 134 units/L (35-129) H 08/09/18 06:48 Ammonia 33.0 umol/L (25-60) 08/09/18 06:48 Total Protein 7.7 g/dL (6.3-8.2) 08/09/18 06:48 Albumin 3.5 g/dL (3.9-5) L 08/09/18 06:48 Albumin/Globulin Ratio 0.8 % 08/09/18 06:48
[2018-08-09] MEDS: BENTYL PO SCH ×4 (09:46→22:04)
[2018-08-09] MEDS: QUESTRAN PO SCH ×2 (09:47→09:50)
[2018-08-09] MEDS: PROTONIX PO SCH (09:47)
[2018-08-09] MEDS: SODIUM CHLORIDE FLUSH SYRINGE 10 ML IV SCH ×2 (09:55→22:11)
[2018-08-09] MEDS ORDERED: NON-FORMULARY (Omeprazole [Omeprazole] 20 MG) PO SCH (10:00)
[2018-08-09] MEDS ORDERED: PEPCID PO SCH (10:00)
[2018-08-09] MEDS ORDERED: PROAMATINE PO SCH (10:00)
--- NOTE | 2018-08-09 11:12 | Gastroenterology Consultation ---
History of Present Illness - Reason for Consult Consult date: 08/09/18 Abdominal pain Requesting physician: AIMEE BHAKTA - History of Present Illness The patient was last seen about a year ago for diarrhea. He was admitted this time from his dialysis unit yesterday (did not get HD) because of R sided abdominal pain for the last 48 hours. This is a sharp, stabbing pain that doesn 't radiate, and he feels constipated (is constipated on CT; normally has diarrhea). He has had emesis, but this was 2 weeks ago; no prior GI surgery other than CCY. His CT does show a new R lung lesion(s) but also mural thickening in the small bowel loops angel in the pelvis on the right, as well as severe atherosclerosis, and possible gastroparesis. Although he ate today, he says he has little appetite, and eating makes the pain worse. He has no blood in the stools, and has felt well before today (at his baseline). There were no new meds that could lead to constipation; he says his last colonoscopy was about 3 years ago. Past History Past Medical History: COPD, diabetes, ESRD, hypertension, hyperlipidemia Past Surgical History: cholecystectomy, Other (Renal/Vascath related) Social history: lives with family. denies: smoking (Former), alcohol abuse Family history: no significant family history Medications and Allergies Allergies Allergy/AdvReac Type Severity Reaction Status Date / Time pregabalin [From Lyrica] Allergy Severe Seizure Verified 05/17/17 21:59 Home Medications Medication Instructions Recorded Confirmed Last Taken Type Combivent Inhaler 18 - 103 inhalation INHALATION BID 04/12/17 08/09/18 05/24/17 History Crestor 20 mg PO QHS 04/12/17 08/09/18 05/24/17 History Omeprazole 20 mg PO DAILY #0 04/12/17 08/09/18 05/24/17 History Sodium Bicarbonate 650 mg PO TID 04/12/17 08/09/18 05/24/17 History AtorvaSTATin [Lipitor] 40 mg PO QHS tablet 04/16/17 08/09/18 04/25/17 23:00 Rx 40 mg Detemir (Nf) [Levemir (Nf)] 8 units SUB-Q QHS units 04/16/17 08/09/18 05/24/17 Rx Apixaban [Eliquis] 10 mg PO Q12HR 6 Days tablet 05/20/17 08/09/18 Unknown Rx Cholestyramine (with Sugar) 4 gm PO QDAY #30 mo 05/26/17 08/09/18 Unknown Rx [Questran] Loperamide [Imodium] 2 mg PO Q2H PRN #30 capsule 05/26/17 08/09/18 Unknown Rx Loperamide [Imodium] 2 mg PO Q2HR #60 capsule 05/26/17 08/09/18 Unknown Rx Midodrine [Proamatine] 5 mg PO DAILY #30 tablet 05/26/17 08/09/18 Unknown Rx Apixaban [Eliquis] 5 mg PO BID #60 tablet 05/27/17 08/09/18 08/08/18 23:45 Rx 5mg Detemir (Nf) [Levemir (Nf)] 8 units SUB-Q QAMDIAB #6 units 06/24/18 08/09/18 Unknown Rx Dicyclomine [Bentyl] 10 mg PO QID #30 capsule 06/24/18 08/09/18 Unknown Rx HYDROcodone/APAP 5-325 1 mg PO Q6HR PRN #7 06/24/18 08/09/18 Unknown Rx Ambien 5 mg PO PRN PRN 08/09/18 08/09/18 Unknown History Active Meds: Active Medications Acetaminophen (Tylenol) 650 mg PO Q4H PRN PRN Reason: Pain MILD(1-3)/Fever >100.5/HERRERA Apixaban (Eliquis) 2.5 mg PO BID [facility]; Protocol Last Admin: 08/09/18 09:47 Dose: 2.5 mg Atorvastatin Calcium (Lipitor) 40 mg PO QHS [facility] Cholestyramine Resin (Questran) 4 gm PO QDAY [facility] Last Admin: 08/09/18 09:50 Dose: Not Given Dicyclomine HCl (Bentyl) 10 mg PO QID [facility] Last Admin: 08/09/18 09:46 Dose: 10 mg Levofloxacin/Dextrose (Levaquin 500mg/100ml) 500 mg in 100 mls @ 100 mls/hr IV Q48H [facility]; Protocol Insulin Glargine (Lantus) 8 units SUB-Q QAMDIAB [facility] Last Admin: 08/09/18 08:26 Dose: 8 units Insulin Glargine (Lantus) 8 units SUB-Q QHS [facility] Lactulose (Cephulac) 26.67 gm PO Q24HR [facility] Last Admin: 08/09/18 08:25 Dose: 26.67 gm Loperamide HCl (Imodium) 2 mg PO Q2H PRN PRN Reason: Diarrhea Midodrine (Proamatine) 5 mg PO DAILY [facility] Last Admin: 08/09/18 09:47 Dose: 5 mg Morphine Sulfate (Morphine) 2 mg IV Q4H PRN PRN Reason: Pain, Moderate (4-6) Ondansetron HCl (Zofran) 4 mg IV Q8H PRN PRN Reason: Nausea And Vomiting Oxycodone/Acetaminophen (Percocet 5/325) 1 tab PO Q6H PRN PRN Reason: Pain, Moderate (4-6) Last Admin: 08/09/18 09:47 Dose: 1 tab Pantoprazole Sodium (Protonix) 20 mg PO QDAY [facility] Last Admin: 08/09/18 09:47 Dose: 20 mg Sodium Chloride (Sodium Chloride Flush Syringe 10 Ml) 10 ml IV BID [facility] Sodium Chloride (Sodium Chloride Flush Syringe 10 Ml) 10 ml IV PRN PRN PRN Reason: LINE FLUSH I HAVE REVIEWED AND RECONCILED MEDICATIONS Review of Systems - Review of Systems All systems: negative (as noted in the HPI) Exam - Constitutional Vital Signs: Temp Pulse Resp BP Pulse Ox 97.1 F L 94 H 16 166/97 90 08/09/18 08:30 08/09/18 08:30 08/09/18 09:47 08/09/18 08:30 08/09/18 08:30 General appearance: no acute distress - EENT Eyes: PERRL, other (catracts) ENT: hearing intact, clear oral mucosa, no thrush - Neck Neck: supple, normal ROM - Respiratory Respiratory effort: normal Respiratory: bilateral: CTA - Cardiovascular Rhythm: regular Heart Sounds: Present: S1 & S2 Extremities: no ischemia, No edema - Gastrointestinal General gastrointestinal: Present: soft, tender (minimal tenderness without guard), distended (very mild) - Integumentary Integumentary: Present: clear, warm, dry - Neurologic Neurological: alert and oriented x3 - Labs CBC & Chem 7: 08/09/18 06:48 08/09/18 06:48 Lab Results: Laboratory Results - last 24 hr 08/08/18 08/08/18 08/08/18 11:43 11:43 14:07 WBC 7.6 RBC 4.27 Hgb 12.2 Hct 38.3 MCV 90 MCH 29 MCHC 32 RDW 18.0 H Plt Count 266 Hanson % (Auto) Feather Duster Winder Add Manual Diff Complete Total Counted 100 Seg Neuts % (Manual) 64.0 Band Neutrophils % 1.0 Lymphocytes % (Manual) 22.0 Reactive Lymphs % (Man) 0 Monocytes % (Manual) 12.0 H Eosinophils % (Manual) 1.0 Basophils % (Manual) 0 Metamyelocytes % 0 Myelocytes % 0 Promyelocytes % 0 Blast Cells % 0 Nucleated RBC % Not Reportable Seg Neutrophils # Man 4.9 Band Neutrophils # 0.1 Lymphocytes # (Manual) 1.7 Abs React Lymphs (Man) 0.0 Monocytes # (Manual) 0.9 H Eosinophils # (Manual) 0.1 Basophils # (Manual) 0.0 Metamyelocytes # 0.0 Myelocytes # 0.0 Promyelocytes # 0.0 Blast Cells # 0.0 WBC Morphology Not Reportable Hypersegmented Neuts Not Reportable Hyposegmented Neuts Not Reportable Hypogranular Neuts Not Reportable Smudge Cells Not Reportable Toxic Granulation Not Reportable Toxic Vacuolation Not Reportable Dohle Bodies Not Reportable Pelger-Huet Anomaly Not Reportable Jb Rods Not Reportable Platelet Estimate Not Reportable Clumped Platelets Not Reportable Plt Clumps, EDTA Not Reportable Large Platelets Not Reportable Giant Platelets Not Reportable Platelet Satelliting Not Reportable Plt Morphology Comment Not Reportable RBC Morphology Not Reportable Dimorphic RBCs Not Reportable Polychromasia Not Reportable Hypochromasia Not Reportable Poikilocytosis Not Reportable Anisocytosis Few Microcytosis Not Reportable Macrocytosis Not Reportable Spherocytes Not Reportable Pappenheimer Bodies Not Reportable Sickle Cells Not Reportable Target Cells Not Reportable Tear Drop Cells Not Reportable Ovalocytes Not Reportable Helmet Cells Not Reportable Rhoades-Flat [place] Bodies Not Reportable [place] Rings Not Reportable Landy Cells Not Reportable Bite Cells Not Reportable Crenated Cell Not Reportable Elliptocytes Not Reportable Acanthocytes (Spur) Not Reportable Rouleaux Not Reportable Hemoglobin C Crystals Not Reportable Schistocytes Not Reportable Malaria parasites Not Reportable Tunde Bodies Not Reportable Hem Pathologist Commnt No Sodium 140 Potassium 5.4 H Chloride 96.6 L Carbon Dioxide 26 Anion Gap 23 BUN 35 H Creatinine 8.3 H Estimated GFR 8 BUN/Creatinine Ratio 4 Glucose 117 H POC Glucose Hemoglobin A1c Calcium 9.4 Total Bilirubin 0.40 AST 42 H ALT 37 Alkaline Phosphatase 149 H Ammonia 74.0 H Total Protein 7.6 Albumin 3.9 Albumin/Globulin Ratio 1.1 08/09/18 08/09/18 08/09/18 06:48 06:48 06:48 WBC 7.7 RBC 4.30 Hgb 12.6 Hct 38.4 MCV 89 MCH 29 MCHC 33 RDW 17.9 H Plt Count 241 Hanson % (Auto) Add Manual Diff Complete Total Counted 100 Seg Neuts % (Manual) 66 Band Neutrophils % 2.0 Lymphocytes % (Manual) 15.0 Reactive Lymphs % (Man) 0 Monocytes % (Manual) 15 H Eosinophils % (Manual) 2.0 Basophils % (Manual) 0 Metamyelocytes % 0 Myelocytes % 0 Promyelocytes % 0 Blast Cells % 0 Nucleated RBC % Not Reportable Seg Neutrophils # Man 5.0 Band Neutrophils # 0.2 Lymphocytes # (Manual) 1.2 Abs React Lymphs (Man) 0.0 Monocytes # (Manual) 1.1 H Eosinophils # (Manual) 0.2 Basophils # (Manual) 0.0 Metamyelocytes # 0.0 Myelocytes # 0.0 Promyelocytes # 0.0 Blast Cells # 0.0 WBC Morphology Not Reportable Hypersegmented Neuts Not Reportable Hyposegmented Neuts Not Reportable Hypogranular Neuts Not Reportable Smudge Cells Not Reportable Toxic Granulation Not Reportable Toxic Vacuolation Not Reportable Dohle Bodies Not Reportable Pelger-Huet Anomaly Not Reportable Jb Rods Not Reportable Platelet Estimate Not Reportable Clumped Platelets Not Reportable Plt Clumps, EDTA Not Reportable Large Platelets Not Reportable Giant Platelets Not Reportable Platelet Satelliting Not Reportable Plt Morphology Comment Not Reportable RBC Morphology Not Reportable Dimorphic RBCs Not Reportable Polychromasia Not Reportable Hypochromasia Not Reportable Poikilocytosis Not Reportable Anisocytosis Few Microcytosis Not Reportable Macrocytosis Not Reportable Spherocytes Not Reportable Pappenheimer Bodies Not Reportable Sickle Cells Not Reportable Target Cells Not Reportable Tear Drop Cells Not Reportable Ovalocytes Not Reportable Helmet Cells Not Reportable Rhoades-[place] Bodies Not Reportable [place] Rings Not Reportable Landy Cells Not Reportable Bite Cells Not Reportable Crenated Cell Not Reportable Elliptocytes Not Reportable Acanthocytes (Spur) Not Reportable Rouleaux Not Reportable Hemoglobin C Crystals Not Reportable Schistocytes Not Reportable Malaria parasites Not Reportable Tunde Bodies Not Reportable Hem Pathologist Commnt No Sodium 141 Potassium 5.0 Chloride 96.6 L Carbon Dioxide 24 Anion Gap 25 BUN 38 H Creatinine 9.1 H Estimated GFR 7 BUN/Creatinine Ratio 4 Glucose 116 H POC Glucose Hemoglobin A1c 5.3 Calcium 9.2 Total Bilirubin 0.50 AST 31 ALT 34 Alkaline Phosphatase 134 H Ammonia Total Protein 7.7 Albumin 3.5 L Albumin/Globulin Ratio 0.8 08/09/18 08/09/18 06:48 08:22 WBC RBC Hgb Hct MCV MCH MCHC RDW Plt Count Hanson % (Auto) Add Manual Diff Total Counted Seg Neuts % (Manual) Band Neutrophils % Lymphocytes % (Manual) Reactive Lymphs % (Man) Monocytes % (Manual) Eosinophils % (Manual) Basophils % (Manual) Metamyelocytes % Myelocytes % Promyelocytes % Blast Cells % Nucleated RBC % Seg Neutrophils # Man Band Neutrophils # Lymphocytes # (Manual) Abs React Lymphs (Man) Monocytes # (Manual) Eosinophils # (Manual) Basophils # (Manual) Metamyelocytes # Myelocytes # Promyelocytes # Blast Cells # WBC Morphology Hypersegmented Neuts Hyposegmented Neuts Hypogranular Neuts Smudge Cells Toxic Granulation Toxic Vacuolation Dohle Bodies Pelger-Huet Anomaly Jb Rods Platelet Estimate Clumped Platelets Plt Clumps, EDTA Large Platelets Giant Platelets Platelet Satelliting Plt Morphology Comment RBC Morphology Dimorphic RBCs Polychromasia Hypochromasia Poikilocytosis Anisocytosis Microcytosis Macrocytosis Spherocytes Pappenheimer Bodies Sickle Cells Target Cells Tear Drop Cells Ovalocytes Helmet Cells Rhoades-[place] Bodies [place] Rings Landy Cells Bite Cells Crenated Cell Elliptocytes Acanthocytes (Spur) Rouleaux Hemoglobin C Crystals Schistocytes Malaria parasites Tunde Bodies Hem Pathologist Commnt Sodium Potassium Chloride Carbon Dioxide Anion Gap BUN Creatinine Estimated GFR BUN/Creatinine Ratio Glucose POC Glucose 91 Hemoglobin A1c Calcium Total Bilirubin AST ALT Alkaline Phosphatase Ammonia 33.0 Total Protein Albumin Albumin/Globulin Ratio Assessment and Plan - Patient Problems (1) Abnormal CT of the abdomen Current Visit: Yes Status: Acute Plan to address problem: - Severe atherosclerosis with mural thickening and pain on eating worrisome for intestinal angina; will get CT angiogram of the mesenteric vessels. - For now, will downgrade to liquid diet, until CT done, and patient has a BM given no exit of contrast from stomach. - Continue lactulose and other medications for now. - Agree with empiric abx, since this may be infectious. (2) Constipation Current Visit: Yes Status: Acute Plan to address problem: - Hold questran and all narcotics; OK to continue lactulose for now. - Colonoscopy negative by report 3 years ago, and no focal transition point or mural thickening. (3) Lung mass Current Visit: Yes Status: Acute Plan to address problem: - New compared to old CT scans; will get input from Pulmonary service.
--- NOTE | 2018-08-09 11:30 | Consultation ---
History of Present Illness Consult date: 08/09/18 Requesting physician: TI KNUTSON Reason for consult: abnormal CXR/CT History of present illness: 68 y/o male, known to me as we saw him in April of 2017 secondary to abnormal CXR[address] CT at that time was consistent with ILD with broad differential. Patient has been asymptomatic and is not current admitted for any pulmonary issues. He has had a CT of abdomen pelvis done this admission and radiologist read changes in the right lower lobe as increased or worsening and there was concern for malignancy. Pulmonary consulted to ask our opinion. Of note patient carries a known diagnosis of sarcoid via a biopsy of a skin lesion from 1978. He did not provide this info with the consult from last summer. He does complain of weight loss. Shortness of breath is stable. he does not follow with us or another lung specialist. Past History Past Medical History: COPD, diabetes, ESRD, hypertension, hyperlipidemia, sarcoidosis Past Surgical History: cholecystectomy, Other (Renal/Vascath related) Social history: lives with family. denies: smoking (Former), alcohol abuse Family history: no significant family history Medications and Allergies Allergies Allergy/AdvReac Type Severity Reaction Status Date / Time pregabalin [From Lyrica] Allergy Severe Seizure Verified 05/17/17 21:59 Home Medications Medication Instructions Recorded Confirmed Last Taken Type Combivent Inhaler 18 - 103 inhalation INHALATION BID 04/12/17 08/09/18 05/24/17 History Crestor 20 mg PO QHS 04/12/17 08/09/18 05/24/17 History Omeprazole 20 mg PO DAILY #0 04/12/17 08/09/18 05/24/17 History Sodium Bicarbonate 650 mg PO TID 04/12/17 08/09/18 05/24/17 History AtorvaSTATin [Lipitor] 40 mg PO QHS tablet 04/16/17 08/09/18 04/25/17 23:00 Rx 40 mg Detemir (Nf) [Levemir (Nf)] 8 units SUB-Q QHS units 04/16/17 08/09/18 05/24/17 Rx Apixaban [Eliquis] 10 mg PO Q12HR 6 Days tablet 05/20/17 08/09/18 Unknown Rx Cholestyramine (with Sugar) 4 gm PO QDAY #30 mo 05/26/17 08/09/18 Unknown Rx [Questran] Loperamide [Imodium] 2 mg PO Q2H PRN #30 capsule 05/26/17 08/09/18 Unknown Rx Loperamide [Imodium] 2 mg PO Q2HR #60 capsule 05/26/17 08/09/18 Unknown Rx Midodrine [Proamatine] 5 mg PO DAILY #30 tablet 05/26/17 08/09/18 Unknown Rx Apixaban [Eliquis] 5 mg PO BID #60 tablet 05/27/17 08/09/18 08/08/18 23:45 Rx 5mg Detemir (Nf) [Levemir (Nf)] 8 units SUB-Q QAMDIAB #6 units 06/24/18 08/09/18 Unknown Rx Dicyclomine [Bentyl] 10 mg PO QID #30 capsule 06/24/18 08/09/18 Unknown Rx HYDROcodone/APAP 5-325 1 mg PO Q6HR PRN #7 06/24/18 08/09/18 Unknown Rx Ambien 5 mg PO PRN PRN 08/09/18 08/09/18 Unknown History Active Meds: Active Medications Acetaminophen (Tylenol) 650 mg PO Q4H PRN PRN Reason: Pain MILD(1-3)/Fever >100.5/HERRERA Apixaban (Eliquis) 2.5 mg PO BID [facility]; Protocol Last Admin: 08/09/18 09:47 Dose: 2.5 mg Atorvastatin Calcium (Lipitor) 40 mg PO QHS [facility] Dicyclomine HCl (Bentyl) 10 mg PO QID [facility] Last Admin: 08/09/18 09:46 Dose: 10 mg Levofloxacin/Dextrose (Levaquin 500mg/100ml) 500 mg in 100 mls @ 100 mls/hr IV Q48H [facility]; Protocol Insulin Glargine (Lantus) 8 units SUB-Q QAMDIAB [facility] Last Admin: 08/09/18 08:26 Dose: 8 units Insulin Glargine (Lantus) 8 units SUB-Q QHS [facility] Lactulose (Cephulac) 26.67 gm PO Q24HR [facility] Last Admin: 08/09/18 08:25 Dose: 26.67 gm Loperamide HCl (Imodium) 2 mg PO Q2H PRN PRN Reason: Diarrhea Midodrine (Proamatine) 5 mg PO DAILY [facility] Last Admin: 08/09/18 09:47 Dose: 5 mg Ondansetron HCl (Zofran) 4 mg IV Q8H PRN PRN Reason: Nausea And Vomiting Pantoprazole Sodium (Protonix) 20 mg PO QDAY [facility] Last Admin: 08/09/18 09:47 Dose: 20 mg Sodium Chloride (Sodium Chloride Flush Syringe 10 Ml) 10 ml IV BID [facility] Sodium Chloride (Sodium Chloride Flush Syringe 10 Ml) 10 ml IV PRN PRN PRN Reason: LINE FLUSH Review of Systems All systems: negative Physical Examination Vital signs: Vital Signs Temp Pulse Resp BP Pulse Ox 98.2 F 88 18 157/44 98 08/08/18 11:19 08/08/18 11:19 08/08/18 11:19 08/08/18 11:19 08/08/18 11:19 General appearance: no acute distress, alert, other (comfortable on room air) ENT: oropharynx moist Neck: supple, no lymphadenopathy Effort: normal Ascultation: Bilateral: rhonchi Percussion: Bilateral: not dull Tactile fremitus: Bilateral: normal Cardiovascular: regular rate and rhythm Gastrointestinal: normoactive bowel sounds, soft Extremities: no edema, other (clubbing) Gait: normal gait mood appropriate Results - Laboratory Findings CBC and BMP: 08/09/18 06:48 08/09/18 06:48 Abnormal lab findings: Abnormal Labs 08/08/18 08/08/18 08/08/18 11:43 11:43 14:07 RDW 18.0 H Monocytes % (Manual) 12.0 H Monocytes # (Manual) 0.9 H Potassium 5.4 H Chloride 96.6 L BUN 35 H Creatinine 8.3 H Glucose 117 H AST 42 H Alkaline Phosphatase 149 H Ammonia 74.0 H Albumin 08/09/18 08/09/18 06:48 06:48 RDW 17.9 H Monocytes % (Manual) 15 H Monocytes # (Manual) 1.1 H Potassium Chloride 96.6 L BUN 38 H Creatinine 9.1 H Glucose 116 H AST Alkaline Phosphatase 134 H Ammonia Albumin 3.5 L Assessment and Plan 68 y/o male with known Sarcoid now admitted with GI issues. 1. To be safe with weight loss, will obtain CT of chest to compare to one from last summer. Sarcoid is not a risk factor for lung CA and it is not associated with malignancy. The changes seen in the right base are likely chronic and not new masses/tumor that would be concerning for malignancy, but will follow up. If CT stable, likely will sign off. Thank you for this consult.
--- NOTE | 2018-08-09 12:42 | Consultation ---
History of Present Illness - Reason for Consult Consult date: 08/09/18 end stage renal disease Requesting physician: LYLE KERN - History of Present Illness 68-year-old -[place] male presents to the emergency department with a complaint of lower abdominal sharp pains with some radiation towards the back that has been going on since earlier this morning. The symptoms caused him to miss dialysis today. He seems to been having some issues completing dialysis recently and the daughter says that he has not had more than 3 hours of dialysis during his normal dialysis days, Friday//Friday, for the past few weeks. 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 Quiñonez. He did not take anything for her symptoms prior to presentation. He has been dealing with some intermittent nausea and they say that he was at a hospital or emergency department recently for issues with nausea. He lost about 5 kg over the past week. On top of the end-stage renal disease, he has a past mental history of CHF, hypertension. His primary care physician is Dr. Sanjay Crowley. He does not make urine. No issues with bowel movements. No fever. - Past Medical History Hx Hypertension: No Hx Heart Attack/AMI: No Hx Congestive Heart Failure: Yes Hx Diabetes: Yes Hx Deep Vein Thrombosis: No Hx Pulmonary Embolism: No Hx Liver Disease: No Hx Renal Disease: Yes Hx Arthritis: No Hx Seizures: No Hx Kidney Stones: No Hx Asthma: Yes Hx COPD: No Hx Tuberculosis: No Hx Dementia: No Hx HIV: No Additional medical history: dialysis - Surgical History Hx Coronary Stent: No Hx Pacemaker: No Hx Internal Defibrillator: No Hx Cholecystectomy: Yes Additional Surgical History: right chest perm cath, rotator cuff repair, carpal tunnel surgery - Social History Smoking Status: Current Every Day Smoker Substance Use Type: None ROS: Stated complaint: RIGHT SIDE PAIN Other details as noted in HPI Comment: All other systems reviewed and negative Constitutional: denies: chills, fever Eyes: denies: eye pain, eye discharge, vision change ENT: denies: ear pain, throat pain Respiratory: denies: cough, shortness of breath, wheezing Cardiovascular: denies: chest pain, palpitations Gastrointestinal: abdominal pain, nausea. denies: diarrhea, constipation Genitourinary: denies: urgency, dysuria Musculoskeletal: back pain. denies: arthralgia Skin: denies: rash, lesions Neurological: denies: headache, weakness, paresthesias Past History Past Medical History: COPD, diabetes, ESRD, hypertension, hyperlipidemia, sarcoidosis Past Surgical History: cholecystectomy, Other (Renal/Vascath related) Social history: lives with family. denies: smoking (Former), alcohol abuse Family history: no significant family history Medications and Allergies Allergies Allergy/AdvReac Type Severity Reaction Status Date / Time pregabalin [From Lyrica] Allergy Severe Seizure Verified 05/17/17 21:59 Home Medications Medication Instructions Recorded Confirmed Last Taken Type Combivent Inhaler 18 - 103 inhalation INHALATION BID 04/12/17 08/09/18 05/24/17 History Crestor 20 mg PO QHS 04/12/17 08/09/18 05/24/17 History Omeprazole 20 mg PO DAILY #0 04/12/17 08/09/18 05/24/17 History Sodium Bicarbonate 650 mg PO TID 04/12/17 08/09/18 05/24/17 History AtorvaSTATin [Lipitor] 40 mg PO QHS tablet 04/16/17 08/09/18 04/25/17 23:00 Rx 40 mg Detemir (Nf) [Levemir (Nf)] 8 units SUB-Q QHS units 04/16/17 08/09/18 05/24/17 Rx Apixaban [Eliquis] 10 mg PO Q12HR 6 Days tablet 05/20/17 08/09/18 Unknown Rx Cholestyramine (with Sugar) 4 gm PO QDAY #30 mo 05/26/17 08/09/18 Unknown Rx [Questran] Loperamide [Imodium] 2 mg PO Q2H PRN #30 capsule 05/26/17 08/09/18 Unknown Rx Loperamide [Imodium] 2 mg PO Q2HR #60 capsule 05/26/17 08/09/18 Unknown Rx Midodrine [Proamatine] 5 mg PO DAILY #30 tablet 05/26/17 08/09/18 Unknown Rx Apixaban [Eliquis] 5 mg PO BID #60 tablet 05/27/17 08/09/18 08/08/18 23:45 Rx 5mg Detemir (Nf) [Levemir (Nf)] 8 units SUB-Q QAMDIAB #6 units 06/24/18 08/09/18 Unknown Rx Dicyclomine [Bentyl] 10 mg PO QID #30 capsule 06/24/18 08/09/18 Unknown Rx HYDROcodone/APAP 5-325 1 mg PO Q6HR PRN #7 06/24/18 08/09/18 Unknown Rx Ambien 5 mg PO PRN PRN 08/09/18 08/09/18 Unknown History Active Meds: Active Medications Acetaminophen (Tylenol) 650 mg PO Q4H PRN PRN Reason: Pain MILD(1-3)/Fever >100.5/HERRERA Apixaban (Eliquis) 2.5 mg PO BID FORMERLY [facility], [facility]–1983; Protocol Last Admin: 08/09/18 09:47 Dose: 2.5 mg Atorvastatin Calcium (Lipitor) 40 mg PO QHS [facility], [facility]–1983 Dicyclomine HCl (Bentyl) 10 mg PO QID [facility], [facility]1983 Last Admin: 08/09/18 09:46 Dose: 10 mg Levofloxacin/Dextrose (Levaquin 500mg/100ml) 500 mg in 100 mls @ 100 mls/hr IV Q48H [facility], [facility]–1983; Protocol Insulin Glargine (Lantus) 8 units SUB-Q QAMDIAB [facility]LY [facility], [facility]1983 Last Admin: 08/09/18 08:26 Dose: 8 units Insulin Glargine (Lantus) 8 units SUB-Q QHS [facility], [facility]1983 Lactulose (Cephulac) 26.67 gm PO Q24HR [facility], [facility]1983 Last Admin: 08/09/18 08:25 Dose: 26.67 gm Loperamide HCl (Imodium) 2 mg PO Q2H PRN PRN Reason: Diarrhea Midodrine (Proamatine) 5 mg PO DAILY [facility], [facility]1983 Last Admin: 08/09/18 09:47 Dose: 5 mg Ondansetron HCl (Zofran) 4 mg IV Q8H PRN PRN Reason: Nausea And Vomiting Pantoprazole Sodium (Protonix) 20 mg PO QDAY [facility], [facility] Last Admin: 08/09/18 09:47 Dose: 20 mg Sodium Chloride (Sodium Chloride Flush Syringe 10 Ml) 10 ml IV BID [facility], [facility] Sodium Chloride (Sodium Chloride Flush Syringe 10 Ml) 10 ml IV PRN PRN PRN Reason: LINE FLUSH Exam - Vital Signs Vital signs: Vital Signs Temp Pulse Resp BP Pulse Ox 98.2 F 88 18 157/44 98 08/08/18 11:19 08/08/18 11:19 08/08/18 11:19 08/08/18 11:19 08/08/18 11:19 - Physical Exam Narrative exam: GENERAL: The patient is well-developed well-nourished. HENT: Normocephalic. Atraumatic. Patient has moist mucous membranes. EYES: Extraocular motions are intact. Pupils equal reactive to light bilaterally. NECK: Supple. Trachea is midline. CHEST/LUNGS: Clear to auscultation. There is no respiratory distress noted. HEART/CARDIOVASCULAR: Regular. There is no tachycardia. There is no murmur. ABDOMEN: Abdomen is soft. Tenderness palpation to the lower quadrant of the abdomen. No guarding. Patient has normal bowel sounds. There is no abdominal distention. SKIN: Skin is warm and dry. NEURO: The patient is awake, alert and cooperative. The patient has no focal neurologic deficits. The patient has normal speech. MUSCULOSKELETAL: There is no tenderness or deformity. There is no limitation range of motion. There is no evidence of acute injury. Results - Lab Results 08/09/18 06:48 08/09/18 06:48 Most recent lab results Calcium 9.2 mg/dL (8.4-10.2) 08/09/18 06:48 Assessment and Plan impression * ESRD * Anemia * abdominal pain * sarcoidosis/ILD * Hypertension * Diabetes * Hepatitis C with liver cirrhosis Recommendation * Continue HD on tommorrow then TTS schedule * epogen with dialysis * binders with diet * adjust diet and meds for ESRD * Avoid nephrotoxins * pulm/gi following * strict i/os * renal diet * uf as tolerated with HD
[2018-08-09] MEDS ORDERED: NACL 0.9% 100 ML IV PRN (12:46)
--- NOTE | 2018-08-09 15:23 | Cat Scan Report ---
FINAL REPORT EXAM: CT CHEST WO CON HISTORY: Known Sarcoid w/ concern for increasing mass RLL TECHNIQUE: A CT of the chest was performed from thoracic inlet to diaphragm. No IV contrast was administered. Axial images and coronal and sagittal reformatted images were obtained. PRIORS: 04/30/2017 FINDINGS: There is a right middle lobe mass abutting the pleura. It measures 2.1 x 2.2 cm. It is concerning for malignancy. There are 2 paracardiac/diaphragmatic lymph nodes on the right which have increased in size. These measure 1.5 x 1.0 cm and 1.4 x 1.6 cm there is a diaphragmatic lymph node on the left measuring 12 x 8 mm which is not seen on the prior. There unchanged partially small calcified lymph nodes in the subcarinal lesion There are findings of pulmonary fibrosis. These findings are fairly similar to prior. There is unchanged bronchiectasis in the right upper lobe. There are coronary artery atherosclerotic calcifications. There are atherosclerotic calcifications involving the thoracic aorta. There are no pleural effusions seen. There is no pneumothorax seen. The liver is cirrhotic. IMPRESSION: There is a new right middle lobe mass measuring 2.1 x 2.2 cm. This is concerning for malignancy. There are mildly enlarged diaphragmatic/pericardiac lymph nodes, larger as compared to the prior. Stable fibrotic changes bilaterally with bronchiectasis in the right upper lobe. Coronary and aortic atherosclerotic calcifications. Cirrhotic liver.
[2018-08-09] MEDS: TYLENOL PO PRN ×2 (17:14→22:15)
[2018-08-09] MEDS ORDERED: LANTUS SUB-Q SCH (22:00)
[2018-08-09] MEDS: LEVAQUIN 500MG/100ML 500 MG/100 ML BAG IV SCH (22:11)
[2018-08-10 07:01] LABS: Hematocrit 37.4 % (35.5-45.6); Mean Corpuscular HGB Conc 32 % (32-34); Mean Corpuscular Hemoglobin 29 pg (28-32); Mean Corpuscular Volume 89 fl (84-94); Platelet Count 248 K/mm3 (140-440); Red Blood Count 4.19 M/mm3 (3.65-5.03); Red Cell Distribution Width 17.8 % (13.2-15.2)
[2018-08-10] MEDS: LEVAQUIN 500MG/100ML 500 MG/100 ML BAG IV SCH (07:07)
[2018-08-10 07:26] LABS: Albumin 3.4 g/dL (3.9-5)
[2018-08-10] MEDS ORDERED: D50W (25GM) Syringe IV ONE (07:35)
[2018-08-10] MEDS: LANTUS SUB-Q SCH (07:53)
[2018-08-10 07:54] LABS: Anisocytosis 1+; Basophils % (Manual) 0 % (0.0-1.8); Burr Cells 1+; Helmet Cells Few; Ovalocytes 1+; Tear Drop Cells Rare; Total Cells Counted 100
[2018-08-10] MEDS ORDERED: D50W (25GM) Syringe IV PRN (08:25)
[2018-08-10] MEDS: ELIQUIS PO SCH ×2 (09:22→21:43)
[2018-08-10] MEDS ORDERED: PROAMATINE PO SCH (10:00)
[2018-08-10] MEDS: PROTONIX PO SCH (10:10)
[2018-08-10] MEDS: BENTYL PO SCH ×5 (10:10→21:43)
[2018-08-10] MEDS: SODIUM CHLORIDE FLUSH SYRINGE 10 ML IV SCH ×2 (10:10→21:44)
--- NOTE | 2018-08-10 10:56 | Event Note ---
Date: 08/10/18 Patient off of the floor for CTA. Further recommendations to follow results.
--- NOTE | 2018-08-10 11:03 | Progress Note ---
Subjective Interval history: Patient was seen today for follow-up of multiple renal related issues No complaints of any chest pain pressure or shortness of breath Interdisciplinary notes that also reviewed Events of 24 hours vitals labs intake output medications were reviewed Past medical history: Reviewed Family history: Reviewed Social history: Reviewed Allergies: Reviewed Physical examination: Vitals: Reviewed HEENT: No pallor or icterus oral mucosa moist Neck: Supple no JVD no thyromegaly Chest: Bilateral clear to auscultation anteriorly Heart: Regular rate and rhythm S1-S2 heard no S3-S4 Abdomen: Soft nontender no voluntary guarding rigidity rebound Extremity: Dry skin less than 1+ peripheral edema Psychiatric: No evidence of agitation and aggression noted Dermatology: No petechial rashes Labs and x-rays: Reviewed from today Assessment and plan End-stage renal disease: Patient is currently on hemodialysis, and will need to continue with hemodialysis treatment 3 times per week, ultrafiltration as tolerated, to keep systolic blood pressure above 100 and heart rate under 100 on hemodialysis, We will continue with hemodialysis on Friday schedule Anemia and end-stage renal disease: Monitor hemoglobin and hematocrit current hemoglobin 12.6 satisfactory Malnutrition risk: High consider high-protein diet dietitian evaluation and follow-up in general 1.5 g protein per KG body weight Fluid restriction: 1200 cc per day not to exceed more than that Adequately counseled and educated about other hospital related issues as well Labs were discussed with patient and simple Norwegian Patient does appear to have good understanding of all the dialysis related issues Patient was adequately counseled and educated regarding all the renal related issues Laboratory studies, pertinent for discussed with patient All questions were answered and simple Norwegian We'll continue to follow and make recommendation for renal standpoint Objective - Vital Signs Vital signs: Vital Signs - 12hr 08/09/18 08/10/18 08/10/18 23:15 02:25 07:21 Temperature 98.2 F 97.5 F L Pulse Rate 83 88 Respiratory 18 18 18 Rate Blood Pressure 149/100 192/88 O2 Sat by Pulse 95 92 Oximetry - Lab 08/10/18 06:12 08/10/18 06:12 Most recent lab results Calcium 9.0 mg/dL (8.4-10.2) 08/10/18 06:12
[2018-08-10] MEDS: HumaLOG SUB-Q SCH ×3 (11:30→22:05)
--- NOTE | 2018-08-10 13:37 | Progress Note ---
Assessment and Plan Assessment and plan: 68-year-old male with past medical history significant for end stage disease on hemodialysis presented to the emergency department complaining of abdominal pain. Abdominal pain is getting worse with food. Patient had missed dialysis sessions because of abdominal pain Abdominal pain worsened with eating, there is a concern for intestinal angina - CT abdomen and pelvis was done, showed nonspecific mural thickening with some pelvic small bowel loops may be edema, inflammation, or enteritis, ? gastroparesis - GI consulted and ordered CT angiogram of the mesenteric vessels and reading is pending - Getting better today, diarrhea subsided End-stage renal disease on hemodialysis - Nephrology consulted and will continue with dialysis Metabolic encephalopathy - Likely due to uremic encephalopathy, due to hyperammonemia - Treat the underlying uremia and patient given lactulose and ammonia level went down to normal Right-sided pneumonia, Right lung nodule suspicious for malignancy - Patient is on Levaquin - Pulmonary consulted and did repeat CT which showed right middle lobe nodule suspicious for malignancy - Follow pulmonary recommendation COPD - Continue home medications History of PE - Patient is on Eliquis Disposition - Continue inpatient care History Interval history: Patient was seen and evaluated this morning, patient was complaining abdominal pain.. Hospitalist Physical - Physical exam Narrative exam: Not in cardiopulmonary distress. The patient appeared well nourished and normally developed. Vital signs as documented. Head exam is unremarkable. No scleral icterus . Neck is without jugular venous distension, thyromegaly, or carotid bruits. Lungs are clear to auscultation. Cardiac exam reveals regular rate and Rhythm. First and second heart sounds normal. No murmurs, rubs or gallops. Abdominal exam reveals normal bowel sounds, no masses, no organomegaly and no aortic enlargement. Extremities are nonedematous and both femoral and pedal pulses are normal. 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 No focal weakness. - Constitutional Vitals: Temp Pulse Resp BP Pulse Ox 97.8 F 87 18 177/105 92 08/10/18 10:50 08/10/18 11:45 08/10/18 10:50 08/10/18 11:45 08/10/18 07:21 General appearance: Present: mild distress, well-nourished Results - Labs CBC & Chem 7: 08/10/18 06:12 08/10/18 06:12 Labs: Laboratory Last Values WBC 7.3 K/mm3 (4.5-11.0) 08/10/18 06:12 RBC 4.19 M/mm3 (3.65-5.03) 08/10/18 06:12 Hgb 12.0 gm/dl (11.8-15.2) 08/10/18 06:12 Hct 37.4 % (35.5-45.6) 08/10/18 06:12 MCV 89 fl (84-94) 08/10/18 06:12 MCH 29 pg (28-32) 08/10/18 06:12 MCHC 32 % (32-34) 08/10/18 06:12 RDW 17.8 % (13.2-15.2) H 08/10/18 06:12 Plt Count 248 K/mm3 (140-440) 08/10/18 06:12 [place] % (Auto) Welfare Administrator 08/10/18 06:12 Add Manual Diff Complete 08/10/18 06:12 Total Counted 100 08/10/18 06:12 Seg Neuts % (Manual) 68.0 % (40.0-70.0) 08/10/18 06:12 Band Neutrophils % 0 % 08/10/18 06:12 Lymphocytes % (Manual) 22.0 % (13.4-35.0) 08/10/18 06:12 Reactive Lymphs % (Man) 0 % 08/10/18 06:12 Monocytes % (Manual) 8.0 % (0.0-7.3) H 08/10/18 06:12 Eosinophils % (Manual) 2.0 % (0.0-4.3) 08/10/18 06:12 Basophils % (Manual) 0 % (0.0-1.8) 08/10/18 06:12 Metamyelocytes % 0 % 08/10/18 06:12 Myelocytes % 0 % 08/10/18 06:12 Promyelocytes % 0 % 08/10/18 06:12 Blast Cells % 0 % 08/10/18 06:12 Nucleated RBC % Not Reportable 08/10/18 06:12 Seg Neutrophils # Man 5.0 K/mm3 (1.8-7.7) 08/10/18 06:12 Band Neutrophils # 0.0 K/mm3 08/10/18 06:12 Lymphocytes # (Manual) 1.6 K/mm3 (1.2-5.4) 08/10/18 06:12 Abs React Lymphs (Man) 0.0 K/mm3 08/10/18 06:12 Monocytes # (Manual) 0.6 K/mm3 (0.0-0.8) 08/10/18 06:12 Eosinophils # (Manual) 0.1 K/mm3 (0.0-0.4) 08/10/18 06:12 Basophils # (Manual) 0.0 K/mm3 (0.0-0.1) 08/10/18 06:12 Metamyelocytes # 0.0 K/mm3 08/10/18 06:12 Myelocytes # 0.0 K/mm3 08/10/18 06:12 Promyelocytes # 0.0 K/mm3 08/10/18 06:12 Blast Cells # 0.0 K/mm3 08/10/18 06:12 WBC Morphology Not Reportable 08/10/18 06:12 Hypersegmented Neuts Not Reportable 08/10/18 06:12 Hyposegmented Neuts Not Reportable 08/10/18 06:12 Hypogranular Neuts Not Reportable 08/10/18 06:12 Smudge Cells Not Reportable 08/10/18 06:12 Toxic Granulation Not Reportable 08/10/18 06:12 Toxic Vacuolation Not Reportable 08/10/18 06:12 Dohle Bodies Not Reportable 08/10/18 06:12 Pelger-Huet Anomaly Not Reportable 08/10/18 06:12 Jb Rods Not Reportable 08/10/18 06:12 Platelet Estimate Appears normal 08/10/18 06:12 Clumped Platelets Not Reportable 08/10/18 06:12 Plt Clumps, EDTA Not Reportable 08/10/18 06:12 Large Platelets Not Reportable 08/10/18 06:12 Giant Platelets Not Reportable 08/10/18 06:12 Platelet Satelliting Not Reportable 08/10/18 06:12 Plt Morphology Comment Not Reportable 08/10/18 06:12 RBC Morphology Not Reportable 08/10/18 06:12 Dimorphic RBCs Not Reportable 08/10/18 06:12 Polychromasia Not Reportable 08/10/18 06:12 Hypochromasia Not Reportable 08/10/18 06:12 Poikilocytosis Not Reportable 08/10/18 06:12 Anisocytosis 1+ 08/10/18 06:12 Microcytosis Not Reportable 08/10/18 06:12 Macrocytosis Not Reportable 08/10/18 06:12 Spherocytes Not Reportable 08/10/18 06:12 Pappenheimer Bodies Not Reportable 08/10/18 06:12 Sickle Cells Not Reportable 08/10/18 06:12 Target Cells Not Reportable 08/10/18 06:12 Tear Drop Cells Rare 08/10/18 06:12 Ovalocytes 1+ 08/10/18 06:12 Helmet Cells Few 08/10/18 06:12 Rhoades-Arena Bodies Not Reportable 08/10/18 06:12 [place] Rings Not Reportable 08/10/18 06:12 Landy Cells 1+ 08/10/18 06:12 Bite Cells Not Reportable 08/10/18 06:12 Crenated Cell Not Reportable 08/10/18 06:12 Elliptocytes Few 08/10/18 06:12 Acanthocytes (Spur) Not Reportable 08/10/18 06:12 Rouleaux Not Reportable 08/10/18 06:12 Hemoglobin C Crystals Not Reportable 08/10/18 06:12 Schistocytes Not Reportable 08/10/18 06:12 Malaria parasites Not Reportable 08/10/18 06:12 [place] Bodies Not Reportable 08/10/18 06:12 Hem Pathologist Commnt No 08/10/18 06:12 Sodium 140 mmol/L (137-145) 08/10/18 06:12 Potassium 4.9 mmol/L (3.6-5.0) 08/10/18 06:12 Chloride 98.0 mmol/L (98-107) 08/10/18 06:12 Carbon Dioxide 21 mmol/L (22-30) L 08/10/18 06:12 Anion Gap 26 mmol/L 08/10/18 06:12 BUN 43 mg/dL (9-20) H 08/10/18 06:12 Creatinine 10.1 mg/dL (0.8-1.5) H 08/10/18 06:12 Estimated GFR 6 ml/min 08/10/18 06:12 BUN/Creatinine Ratio 4 % 08/10/18 06:12 Glucose 55 mg/dL (75-100) L 08/10/18 06:12 POC Glucose 92 (70-105) 08/10/18 10:11 Hemoglobin A1c 5.3 % (4-6) 08/09/18 06:48 Calcium 9.0 mg/dL (8.4-10.2) 08/10/18 06:12 Total Bilirubin 0.50 mg/dL (0.1-1.2) 08/10/18 06:12 AST 28 units/L (5-40) 08/10/18 06:12 ALT 28 units/L (7-56) 08/10/18 06:12 Alkaline Phosphatase 110 units/L (35-129) 08/10/18 06:12 Ammonia 33.0 umol/L (25-60) 08/09/18 06:48 Total Protein 7.3 g/dL (6.3-8.2) 08/10/18 06:12 Albumin 3.4 g/dL (3.9-5) L 08/10/18 06:12 Albumin/Globulin Ratio 0.9 % 08/10/18 06:12
--- NOTE | 2018-08-10 13:50 | Event Note ---
Date: 08/10/18 Attempt to see patient but notified by nurses, that he is currently outside on a procedure/study. We will evaluate back at the first available opportunity.
--- NOTE | 2018-08-10 14:20 | Gastroenterology Progress Note ---
Assessment and Plan - Patient Problems (1) Abnormal CT of the abdomen Current Visit: Yes Status: Acute Plan to address problem: - Severe atherosclerosis with mural thickening and pain on eating but prelim report on CTA shows good flow in all 3 vessels. - For now, will upgrade to regular diet and monitor. - Continue lactulose and other medications for now. - Prior CCY, and duct is prominant but without stones; .however LFTs normal and no obvious stones; if recurrent pain with eating, consider MRCP. (2) Constipation Current Visit: Yes Status: Acute Plan to address problem: - Hold questran and all narcotics; OK to continue lactulose for now. - Colonoscopy negative by report 3 years ago, and no focal transition point or mural thickening. - Repeat CT shows improvement, with good progression of contrast from 2 days previous. - Will advance diet since CTA shows flow in all 3 vessels. (3) Lung mass Current Visit: Yes Status: Acute Plan to address problem: - Pulmonary notes reviewed and appreciated; no further w/u needed at present. Subjective Date of service: 08/10/18 Principal diagnosis: Abdominal Pain Interval history: The patient is seen in dialysis. He had 2 BMs last night, and his stomach is still sore, but better. He is tolerating liquids without N/V, and there is no blood in the stools. Objective - Constitutional Vitals: Temp Pulse Resp BP Pulse Ox 97.8 F 88 18 181/105 92 08/10/18 10:50 08/10/18 14:00 08/10/18 10:50 08/10/18 14:00 08/10/18 07:21 General appearance: no acute distress - Respiratory Respiratory effort: normal Respiratory: bilateral: CTA - Cardiovascular Rhythm: regular Heart Sounds: Present: S1 & S2 - Gastrointestinal General gastrointestinal: Present: soft, tender (Minimal RLQ tenderness), non- distended - Labs CBC & Chem 7: 08/10/18 06:12 08/10/18 06:12 Labs: Laboratory Results - last 24 hr 08/09/18 08/09/18 08/10/18 16:18 20:40 00:46 WBC RBC Hgb Hct MCV MCH MCHC RDW Plt Count [place] % (Auto) Add Manual Diff Total Counted Seg Neuts % (Manual) Band Neutrophils % Lymphocytes % (Manual) Reactive Lymphs % (Man) Monocytes % (Manual) Eosinophils % (Manual) Basophils % (Manual) Metamyelocytes % Myelocytes % Promyelocytes % Blast Cells % Nucleated RBC % Seg Neutrophils # Man Band Neutrophils # Lymphocytes # (Manual) Abs React Lymphs (Man) Monocytes # (Manual) Eosinophils # (Manual) Basophils # (Manual) Metamyelocytes # Myelocytes # Promyelocytes # Blast Cells # WBC Morphology Hypersegmented Neuts Hyposegmented Neuts Hypogranular Neuts Smudge Cells Toxic Granulation Toxic Vacuolation Dohle Bodies Pelger-Huet Anomaly Jb Rods Platelet Estimate Clumped Platelets Plt Clumps, EDTA Large Platelets Giant Platelets Platelet Satelliting Plt Morphology Comment RBC Morphology Dimorphic RBCs Polychromasia Hypochromasia Poikilocytosis Anisocytosis Microcytosis Macrocytosis Spherocytes Pappenheimer Bodies Sickle Cells Target Cells Tear Drop Cells Ovalocytes Helmet Cells Rhoades-[place] Bodies [place] Rings Landy Cells Bite Cells Crenated Cell Elliptocytes Acanthocytes (Spur) Rouleaux Hemoglobin C Crystals Schistocytes Malaria parasites [place] Bodies Hem Pathologist Commnt Sodium Potassium Chloride Carbon Dioxide Anion Gap BUN Creatinine Estimated GFR BUN/Creatinine Ratio Glucose POC Glucose 80 69 L 69 L Calcium Total Bilirubin AST ALT Alkaline Phosphatase Total Protein Albumin Albumin/Globulin Ratio 08/10/18 08/10/18 08/10/18 06:12 06:12 07:21 WBC 7.3 RBC 4.19 Hgb 12.0 Hct 37.4 MCV 89 MCH 29 MCHC 32 RDW 17.8 H Plt Count 248 [place] % (Auto) Tax Senior Associate Add Manual Diff Complete Total Counted 100 Seg Neuts % (Manual) 68.0 Band Neutrophils % 0 Lymphocytes % (Manual) 22.0 Reactive Lymphs % (Man) 0 Monocytes % (Manual) 8.0 H Eosinophils % (Manual) 2.0 Basophils % (Manual) 0 Metamyelocytes % 0 Myelocytes % 0 Promyelocytes % 0 Blast Cells % 0 Nucleated RBC % Not Reportable Seg Neutrophils # Man 5.0 Band Neutrophils # 0.0 Lymphocytes # (Manual) 1.6 Abs React Lymphs (Man) 0.0 Monocytes # (Manual) 0.6 Eosinophils # (Manual) 0.1 Basophils # (Manual) 0.0 Metamyelocytes # 0.0 Myelocytes # 0.0 Promyelocytes # 0.0 Blast Cells # 0.0 WBC Morphology Not Reportable Hypersegmented Neuts Not Reportable Hyposegmented Neuts Not Reportable Hypogranular Neuts Not Reportable Smudge Cells Not Reportable Toxic Granulation Not Reportable Toxic Vacuolation Not Reportable Dohle Bodies Not Reportable Pelger-Huet Anomaly Not Reportable Jb Rods Not Reportable Platelet Estimate Appears normal Clumped Platelets Not Reportable Plt Clumps, EDTA Not Reportable Large Platelets Not Reportable Giant Platelets Not Reportable Platelet Satelliting Not Reportable Plt Morphology Comment Not Reportable RBC Morphology Not Reportable Dimorphic RBCs Not Reportable Polychromasia Not Reportable Hypochromasia Not Reportable Poikilocytosis Not Reportable Anisocytosis 1+ Microcytosis Not Reportable Macrocytosis Not Reportable Spherocytes Not Reportable Pappenheimer Bodies Not Reportable Sickle Cells Not Reportable Target Cells Not Reportable Tear Drop Cells Rare Ovalocytes 1+ Helmet Cells Few Rhoades-[place] Bodies Not Reportable [place] Rings Not Reportable [place] Cells 1+ Bite Cells Not Reportable Crenated Cell Not Reportable Elliptocytes Few Acanthocytes (Spur) Not Reportable Rouleaux Not Reportable Hemoglobin C Crystals Not Reportable Schistocytes Not Reportable Malaria parasites Not Reportable [place] Bodies Not Reportable Hem Pathologist Commnt No Sodium 140 Potassium 4.9 Chloride 98.0 Carbon Dioxide 21 L Anion Gap 26 BUN 43 H Creatinine 10.1 H Estimated GFR 6 BUN/Creatinine Ratio 4 Glucose 55 L POC Glucose 58 L Calcium 9.0 Total Bilirubin 0.50 AST 28 ALT 28 Alkaline Phosphatase 110 Total Protein 7.3 Albumin 3.4 L Albumin/Globulin Ratio 0.9 08/10/18 10:11 WBC RBC Hgb Hct MCV MCH MCHC RDW Plt Count [place] % (Auto) Add Manual Diff Total Counted Seg Neuts % (Manual) Band Neutrophils % Lymphocytes % (Manual) Reactive Lymphs % (Man) Monocytes % (Manual) Eosinophils % (Manual) Basophils % (Manual) Metamyelocytes % Myelocytes % Promyelocytes % Blast Cells % Nucleated RBC % Seg Neutrophils # Man Band Neutrophils # Lymphocytes # (Manual) Abs React Lymphs (Man) Monocytes # (Manual) Eosinophils # (Manual) Basophils # (Manual) Metamyelocytes # Myelocytes # Promyelocytes # Blast Cells # WBC Morphology Hypersegmented Neuts Hyposegmented Neuts Hypogranular Neuts Smudge Cells Toxic Granulation Toxic Vacuolation Dohle Bodies Pelger-Huet Anomaly Jb Rods Platelet Estimate Clumped Platelets Plt Clumps, EDTA Large Platelets Giant Platelets Platelet Satelliting Plt Morphology Comment RBC Morphology Dimorphic RBCs Polychromasia Hypochromasia Poikilocytosis Anisocytosis Microcytosis Macrocytosis Spherocytes Pappenheimer Bodies Sickle Cells Target Cells Tear Drop Cells Ovalocytes Helmet Cells Rhoades-[place] Bodies [place] Rings [place] Cells Bite Cells Crenated Cell Elliptocytes Acanthocytes (Spur) Rouleaux Hemoglobin C Crystals Schistocytes Malaria parasites [place] Bodies Hem Pathologist Commnt Sodium Potassium Chloride Carbon Dioxide Anion Gap BUN Creatinine Estimated GFR BUN/Creatinine Ratio Glucose POC Glucose 92 Calcium Total Bilirubin AST ALT Alkaline Phosphatase Total Protein Albumin Albumin/Globulin Ratio
[2018-08-10] MEDS ORDERED: NACL 0.9 (PRIMING MACHINE ONLY DIALYSIS) MC ONE (14:32)
[2018-08-10] MEDS: TYLENOL PO PRN ×2 (15:58→21:46)
--- NOTE | 2018-08-10 17:37 | Cat Scan Report ---
FINAL REPORT EXAM: CT ANGIO ABDOMEN PELVIS HISTORY: Abnormal CT, severe atherosclerosis TECHNIQUE: Following IV administration of 100 cc of Omnipaque 350 axial helical imaging was performed through the abdomen and pelvis with maximum intensity projection images obtained. Comparison: CT chest dated August 09, [address] abdomen and pelvis dated August 08, 2018 FINDINGS: Visualization detail in portions of the abdomen and pelvis is limited by motion artifact. The lung bases are notable for a pleural based mass in the right middle lobe as was previously described on the CT chest. There is opacification the right lower bronchials and a small left pleural fluid collection. The heart is enlarged. The liver is enlarged and cirrhotic in appearance. The spleen is normal size. There is an area of decreased enhancement in the anterior aspect of the spleen which is well define and may represent an infarct. The pancreas, kidneys and adrenal glands are unremarkable in appearance. The gallbladder is absent with surgical clips in the gallbladder fossa. The bowel is normal caliber. The GI contrast from a previous CT has demonstrated to transit through the small bowel and colon to the rectum. There is the appearance of increased thickness of the wall of the transverse colon and sigmoid colon. There is no definite evidence of pericolic inflammatory change. The appendix is normal caliber. There is no evidence of pneumoperitoneum or free fluid. The abdominal aorta is normal caliber. There is atherosclerotic vascular calcification of the large, medium and small caliber arteries. There is normal enhancement of the major intra-abdominal branches of the aorta and of the iliac arteries without evidence of occlusion or significant stenosis. There is no evidence of pathologic intra-abdominal adenopathy by CT size criteria. The urinary bladder is moderately distended. There appears to be diffuse increased thickness of the urinary bladder wall. The prostate gland is normal size. The bony structures are unremarkable in appearance. IMPRESSION: 1. Normal caliber of the abdominal aorta and normal enhancement of the intra-abdominal branches and iliac arteries without evidence of occlusion or significant stenosis. 2. Cirrhotic appearance of the liver. 3. Well-defined area of decreased enhancement in the anterior aspect of the spleen which may represent a splenic infarct. 4. Appearance of increased thickness of the wall of the transverse colon and sigmoid colon without evidence of pericolic inflammatory change. This may represent changes of colitis. 5. Appearance of diffuse mild increased thickness of the urinary bladder wall of unclear etiology.
[2018-08-11] MEDS ORDERED: APRESOLINE IV PRN ×2 (04:33→08:10)
[2018-08-11] MEDS: HumaLOG SUB-Q SCH ×4 (07:26→22:46)
--- NOTE | 2018-08-11 08:16 | Progress Note ---
Assessment and Plan Assessment and plan: 68-year-old male with past medical history significant for end stage disease on hemodialysis presented to the emergency department complaining of abdominal pain. Abdominal pain is getting worse with food. Patient had missed dialysis sessions because of abdominal pain Abdominal pain worsened with eating, there is a concern for intestinal angina - CT abdomen and pelvis was done, showed nonspecific mural thickening with some pelvic small bowel loops may be edema, inflammation, or enteritis, ? gastroparesis - GI consulted and ordered CT angiogram of the mesenteric vessels Good flow. reports tolerating diet yesterday and today - Getting better today, diarrhea subsided End-stage renal disease on hemodialysis - Nephrology consulted and will continue with dialysis Hypertensive Urgency -D/C midodrine. -increase prn hydralazine and start po if able to tolerate PO -add clonidine patch. 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 Lacunar infarct on imaging-chronic -asa and statin therapy Liver Cirrhosis -Unknown if NSAH vs other etiology -[id number] US Digit ulceration-Right- per patient from finger stick -WOUND CARE CONSULT -ID consult -xray eval for osteomylitis-has been ongoing for two months, prior evaluation done by wound nurse at [facility] per patient -request records from [facility] lEFT TOE NAIL DISLOGED ?DM-PER PT -check a1c-5.3 DOUBT DM -Hypoglycemia here X1 Episode COPD - Continue home medications History of PE - Patient is on Eliquis Disposition - Continue inpatient care History Interval history: Patient seen and examined, reports tolerating diet and no further abdominal pain. He believes he is diabetic but says yes to any medication mentioned, review of records state otherwise. He points out right upper ext ulceration in third middle finger. Denies any fever. Hospitalist Physical - Physical exam Narrative exam: Not in cardiopulmonary distress. The patient appeared well nourished and normally developed. Vital signs as documented. Head exam is unremarkable. No scleral icterus . Neck is without jugular venous distension, thyromegaly, or carotid bruits. Lungs are clear to auscultation. Cardiac exam reveals regular rate and Rhythm. First and second heart sounds normal. No murmurs, rubs or gallops. Abdominal exam reveals normal bowel sounds, no masses, no organomegaly and no aortic enlargement. Extremities are nonedematous and both femoral and pedal pulses are normal. Ulceration lateral aspect of third right finger. READING PROFESSOR: Alert and oriented 3. No focal weakness. - Constitutional Vitals: Temp Pulse Resp BP Pulse Ox 98.1 F 96 H 20 193/74 92 08/10/18 19:58 08/11/18 04:42 08/11/18 03:03 08/11/18 04:42 08/11/18 03:03 General appearance: Present: mild distress, well-nourished Results - Labs CBC & Chem 7: 08/10/18 06:12 08/10/18 06:12 Labs: Laboratory Last Values WBC 7.3 K/mm3 (4.5-11.0) 08/10/18 06:12 RBC 4.19 M/mm3 (3.65-5.03) 08/10/18 06:12 Hgb 12.0 gm/dl (11.8-15.2) 08/10/18 06:12 Hct 37.4 % (35.5-45.6) 08/10/18 06:12 MCV 89 fl (84-94) 08/10/18 06:12 MCH 29 pg (28-32) 08/10/18 06:12 MCHC 32 % (32-34) 08/10/18 06:12 RDW 17.8 % (13.2-15.2) H 08/10/18 06:12 Plt Count 248 K/mm3 (140-440) 08/10/18 06:12 [place] % (Auto) Agricultural Service Technician 08/10/18 06:12 Add Manual Diff Complete 08/10/18 06:12 Total Counted 100 08/10/18 06:12 Seg Neuts % (Manual) 68.0 % (40.0-70.0) 08/10/18 06:12 Band Neutrophils % 0 % 08/10/18 06:12 Lymphocytes % (Manual) 22.0 % (13.4-35.0) 08/10/18 06:12 Reactive Lymphs % (Man) 0 % 08/10/18 06:12 Monocytes % (Manual) 8.0 % (0.0-7.3) H 08/10/18 06:12 Eosinophils % (Manual) 2.0 % (0.0-4.3) 08/10/18 06:12 Basophils % (Manual) 0 % (0.0-1.8) 08/10/18 06:12 Metamyelocytes % 0 % 08/10/18 06:12 Myelocytes % 0 % 08/10/18 06:12 Promyelocytes % 0 % 08/10/18 06:12 Blast Cells % 0 % 08/10/18 06:12 Nucleated RBC % Not Reportable 08/10/18 06:12 Seg Neutrophils # Man 5.0 K/mm3 (1.8-7.7) 08/10/18 06:12 Band Neutrophils # 0.0 K/mm3 08/10/18 06:12 Lymphocytes # (Manual) 1.6 K/mm3 (1.2-5.4) 08/10/18 06:12 Abs React Lymphs (Man) 0.0 K/mm3 08/10/18 06:12 Monocytes # (Manual) 0.6 K/mm3 (0.0-0.8) 08/10/18 06:12 Eosinophils # (Manual) 0.1 K/mm3 (0.0-0.4) 08/10/18 06:12 Basophils # (Manual) 0.0 K/mm3 (0.0-0.1) 08/10/18 06:12 Metamyelocytes # 0.0 K/mm3 08/10/18 06:12 Myelocytes # 0.0 K/mm3 08/10/18 06:12 Promyelocytes # 0.0 K/mm3 08/10/18 06:12 Blast Cells # 0.0 K/mm3 08/10/18 06:12 WBC Morphology Not Reportable 08/10/18 06:12 Hypersegmented Neuts Not Reportable 08/10/18 06:12 Hyposegmented Neuts Not Reportable 08/10/18 06:12 Hypogranular Neuts Not Reportable 08/10/18 06:12 Smudge Cells Not Reportable 08/10/18 06:12 Toxic Granulation Not Reportable 08/10/18 06:12 Toxic Vacuolation Not Reportable 08/10/18 06:12 Dohle Bodies Not Reportable 08/10/18 06:12 Pelger-Huet Anomaly Not Reportable 08/10/18 06:12 Jb Rods Not Reportable 08/10/18 06:12 Platelet Estimate Appears normal 08/10/18 06:12 Clumped Platelets Not Reportable 08/10/18 06:12 Plt Clumps, EDTA Not Reportable 08/10/18 06:12 Large Platelets Not Reportable 08/10/18 06:12 Giant Platelets Not Reportable 08/10/18 06:12 Platelet Satelliting Not Reportable 08/10/18 06:12 Plt Morphology Comment Not Reportable 08/10/18 06:12 RBC Morphology Not Reportable 08/10/18 06:12 Dimorphic RBCs Not Reportable 08/10/18 06:12 Polychromasia Not Reportable 08/10/18 06:12 Hypochromasia Not Reportable 08/10/18 06:12 Poikilocytosis Not Reportable 08/10/18 06:12 Anisocytosis 1+ 08/10/18 06:12 Microcytosis Not Reportable 08/10/18 06:12 Macrocytosis Not Reportable 08/10/18 06:12 Spherocytes Not Reportable 08/10/18 06:12 Pappenheimer Bodies Not Reportable 08/10/18 06:12 Sickle Cells Not Reportable 08/10/18 06:12 Target Cells Not Reportable 08/10/18 06:12 Tear Drop Cells Rare 08/10/18 06:12 Ovalocytes 1+ 08/10/18 06:12 Helmet Cells Few 08/10/18 06:12 Rhoades-[place] Bodies Not Reportable 08/10/18 06:12 [place] Rings Not Reportable 08/10/18 06:12 [place] Cells 1+ 08/10/18 06:12 Bite Cells Not Reportable 08/10/18 06:12 Crenated Cell Not Reportable 08/10/18 06:12 Elliptocytes Few 08/10/18 06:12 Acanthocytes (Spur) Not Reportable 08/10/18 06:12 Rouleaux Not Reportable 08/10/18 06:12 Hemoglobin C Crystals Not Reportable 08/10/18 06:12 Schistocytes Not Reportable 08/10/18 06:12 Malaria parasites Not Reportable 08/10/18 06:12 [place] Bodies Not Reportable 08/10/18 06:12 Hem Pathologist Commnt No 08/10/18 06:12 Sodium 140 mmol/L (137-145) 08/10/18 06:12 Potassium 4.9 mmol/L (3.6-5.0) 08/10/18 06:12 Chloride 98.0 mmol/L (98-107) 08/10/18 06:12 Carbon Dioxide 21 mmol/L (22-30) L 08/10/18 06:12 Anion Gap 26 mmol/L 08/10/18 06:12 BUN 43 mg/dL (9-20) H 08/10/18 06:12 Creatinine 10.1 mg/dL (0.8-1.5) H 08/10/18 06:12 Estimated GFR 6 ml/min 08/10/18 06:12 BUN/Creatinine Ratio 4 % 08/10/18 06:12 Glucose 55 mg/dL (75-100) L 08/10/18 06:12 POC Glucose 96 (70-105) 08/11/18 07:26 Hemoglobin A1c 5.3 % (4-6) 08/09/18 06:48 Calcium 9.0 mg/dL (8.4-10.2) 08/10/18 06:12 Total Bilirubin 0.50 mg/dL (0.1-1.2) 08/10/18 06:12 AST 28 units/L (5-40) 08/10/18 06:12 ALT 28 units/L (7-56) 08/10/18 06:12 Alkaline Phosphatase 110 units/L (35-129) 08/10/18 06:12 Ammonia 33.0 umol/L (25-60) 08/09/18 06:48 Total Protein 7.3 g/dL (6.3-8.2) 08/10/18 06:12 Albumin 3.4 g/dL (3.9-5) L 08/10/18 06:12 Albumin/Globulin Ratio 0.9 % 08/10/18 06:12
--- NOTE | 2018-08-11 08:37 | Progress Note ---
Subjective Principal diagnosis: Abdominal Pain Interval history: Patient was seen today for follow-up of multiple renal related issues No complaints of any chest pain pressure or shortness of breath OUTPATIENT DIALYSIS AT [facility] Patient tolerated hemodialysis treatment fairly well without any problems Interdisciplinary notes that also reviewed Events of 24 hours vitals labs intake output medications were reviewed Past medical history: Reviewed Family history: Reviewed Social history: Reviewed Allergies: Reviewed Physical examination: Vitals: Reviewed HEENT: No pallor or icterus oral mucosa moist Neck: Supple no JVD no thyromegaly Chest: Bilateral clear to auscultation anteriorly Heart: Regular rate and rhythm S1-S2 heard no S3-S4 Abdomen: Soft nontender no voluntary guarding rigidity rebound Extremity: Dry skin less than 1+ peripheral edema, no rash Psychiatric: No evidence of agitation and aggression noted Dermatology: No petechial rashes Labs and x-rays: Reviewed from today Assessment and plan End-stage renal disease: Continue with hemodialysis on TTS Patient is currently established at [facility] Discontinue hydralazine due to tachycardia, start carvedilol and follow hemoglobin normal at this time. No need for erythropoietin End-stage renal disease care plan discussed with patient to modify diet and lifestyle Anemia and end-stage renal disease: Monitor hemoglobin and hematocrit current hemoglobin 12.6 satisfactory Malnutrition risk: High consider high-protein diet dietitian evaluation and follow-up in general 1.5 g protein per KG body weight Fluid restriction: 1200 cc per day not to exceed more than that Adequately counseled and educated about other hospital related issues as well Labs were discussed with patient and simple Norwegian Patient does appear to have good understanding of all the dialysis related issues Patient was adequately counseled and educated regarding all the renal related issues Laboratory studies, pertinent for discussed with patient All questions were answered and simple Norwegian We'll continue to follow and make recommendation for renal standpoint Objective - Vital Signs Vital signs: Vital Signs - 12hr 08/10/18 08/10/18 08/11/18 20:57 22:00 03:03 Temperature Pulse Rate 96 H 96 H Pulse Rate [ 96 H Apical] Respiratory 20 20 Rate Blood Pressure 193/74 Blood Pressure [Right] O2 Sat by Pulse 94 92 Oximetry 08/11/18 08/11/18 04:42 08:22 Temperature 98.7 F Pulse Rate 96 H 101 H Pulse Rate [ Apical] Respiratory 18 Rate Blood Pressure 193/74 Blood Pressure 167/79 [Right] O2 Sat by Pulse 94 Oximetry - Lab 08/10/18 06:12 08/10/18 06:12 Most recent lab results Calcium 9.0 mg/dL (8.4-10.2) 08/10/18 06:12
--- NOTE | 2018-08-11 08:41 | Progress Note ---
Assessment and Plan Abdominal pain/constipation. Abdominal CTA suspicious for atherosclerotic vascular disease. See also GI comments. Right middle lobe lung mass. 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 Lai notes also Cirrhosis Hypertensive urgency. Controlled Recommendations I reviewed the patient's CT scan. The right middle lobe lesion appeared to be pleural-based. Best approach will be CT-guided TTNA/needle biopsy, has first initial option. Lesion could be sarcoid versus malignant in origin Subjective Date of service: 08/11/18 Principal diagnosis: Abdominal Pain, hypertensive urgency, cirrhosis, sarcoidosis, lung mass Objective Vital Signs - 12hr 08/10/18 08/10/18 08/11/18 20:57 22:00 03:03 Temperature Pulse Rate 96 H 96 H Pulse Rate [ 96 H Apical] Respiratory 20 20 Rate Blood Pressure 193/74 Blood Pressure [Right] O2 Sat by Pulse 94 92 Oximetry 08/11/18 08/11/18 04:42 08:22 Temperature 98.7 F Pulse Rate 96 H 101 H Pulse Rate [ Apical] Respiratory 18 Rate Blood Pressure 193/74 Blood Pressure 167/79 [Right] O2 Sat by Pulse 94 Oximetry Constitutional: no acute distress, alert, other (comfortable on room air) ENT: oropharynx moist Neck: supple, no lymphadenopathy Effort: normal Ascultation: Bilateral: rhonchi Percussion: Bilateral: not dull Tactile fremitus: Bilateral: normal Cardiovascular: regular rate and rhythm Gastrointestinal: normoactive bowel sounds, soft Extremities: no edema, other (clubbing) Psychiatric: mood appropriate CBC and BMP: 08/10/18 06:12 08/10/18 06:12 Abnormal lab findings: Abnormal Labs 08/08/18 08/08/18 08/08/18 11:43 11:43 14:07 RDW 18.0 H Monocytes % (Manual) 12.0 H Monocytes # (Manual) 0.9 H Potassium 5.4 H Chloride 96.6 L Carbon Dioxide BUN 35 H Creatinine 8.3 H Glucose 117 H POC Glucose AST 42 H Alkaline Phosphatase 149 H Ammonia 74.0 H Albumin 08/09/18 08/09/18 08/09/18 06:48 06:48 20:40 RDW 17.9 H Monocytes % (Manual) 15 H Monocytes # (Manual) 1.1 H Potassium Chloride 96.6 L Carbon Dioxide BUN 38 H Creatinine 9.1 H Glucose 116 H POC Glucose 69 L AST Alkaline Phosphatase 134 H Ammonia Albumin 3.5 L 08/10/18 08/10/18 08/10/18 00:46 06:12 06:12 RDW 17.8 H Monocytes % (Manual) 8.0 H Monocytes # (Manual) Potassium Chloride Carbon Dioxide 21 L BUN 43 H Creatinine 10.1 H Glucose 55 L POC Glucose 69 L AST Alkaline Phosphatase Ammonia Albumin 3.4 L 08/10/18 08/10/18 07:21 16:10 RDW Monocytes % (Manual) Monocytes # (Manual) Potassium Chloride Carbon Dioxide BUN Creatinine Glucose POC Glucose 58 L 116 H AST Alkaline Phosphatase Ammonia Albumin
[2018-08-11] MEDS: ELIQUIS PO SCH ×2 (09:21→21:41)
[2018-08-11] MEDS: COREG PO SCH ×2 (09:23→21:41)
[2018-08-11] MEDS: BENTYL PO SCH ×4 (09:23→21:42)
[2018-08-11] MEDS: PROTONIX PO SCH (09:24)
--- NOTE | 2018-08-11 09:29 | Gastroenterology Progress Note ---
Assessment and Plan 1.abnormal CT of the abdomen -severe atherosclerosis with mural thickening and abd pain on eating -CTA revealed no evidence of occlusion or significant stenosis -prior CCY, and duct is prominent but w/o stones; LFTs normal -clinically, patient's abd pain has resolved and he is tolerating a regular diet -no further workup recommended at this time, if recurrent pain w/ eating consider MRCP -continue supportive care -patient okay to be d/c per GI standpoint with clinic follow up -will sign off, please call if needed 2.constipation -resolved- repeat CT shows improvement w/ good progression of contrast -continue to hold questran and narcotics -okay to continue lactulose as needed -colonoscopy negative by report 3 years ago, and no focal transition point or mural thickening 3.lung mass -pulmonary notes reviewed and appreciated; no further w/u needed at present Subjective Date of service: 08/11/18 Principal diagnosis: Abdominal Pain Interval history: Patient up walking around the room this am w/o acute distress. Reports eating all of this breakfast this am w/o abd pain or N/V. BM x 3 yesterday with constipation now resolved. Objective - Constitutional Vitals: Temp Pulse Resp BP Pulse Ox 98.7 F 105 H 18 151/68 94 08/11/18 08:22 08/11/18 09:23 08/11/18 08:22 08/11/18 09:23 08/11/18 08:22 General appearance: no acute distress - Respiratory Respiratory: bilateral: CTA - Cardiovascular Rhythm: other (tachycardia) - Gastrointestinal General gastrointestinal: Present: soft, non-tender, non-distended, normal bowel sounds - Neurologic Neurological: alert and oriented x3 - Labs CBC & Chem 7: 08/10/18 06:12 08/10/18 06:12 Labs: Laboratory Results - last 24 hr 08/10/18 08/10/18 08/10/18 10:11 16:10 21:31 POC Glucose 92 116 H 105 08/11/18 07:26 POC Glucose 96
[2018-08-11] MEDS: SODIUM CHLORIDE FLUSH SYRINGE 10 ML IV SCH ×2 (09:41→21:42)
[2018-08-11] MEDS ORDERED: CATAPRES-TTS PATCH TD SCH (10:00)
--- NOTE | 2018-08-11 10:04 | XRay Report ---
RIGHT FINGERS, 3 VIEWS History: Osteomyelitis. Findings: Compared to 06/22/18. Osteopenia and diffuse vascular calcifications are noted. There is soft tissue ulceration involving the distal index finger. The bony structures are grossly intact. No periostitis or bony destruction is identified. No fracture. Impression: Soft tissue findings as described. No convincing evidence for osteomyelitis on x-ray.
--- NOTE | 2018-08-11 14:45 | Consultation ---
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 Patient reports that after a finger prick on his right index finger he developed a bump which then became an ulceration. Ulceration has become deeper and very painful. Patient denies any fever. She denies any drainage from the ulceration. In the ED, initial temperature 98.2, heart rate 88, respiration 18, blood pressure 157/44. CT of the abdomen didn't show right lower lobe consolidation and vascular congestion also show a small bowel thickening. The chest showed right middle lobe mass 2.1 x 2.2 cm uploading diplopia. Small bronchiectasis in the right upper lobe. CT showed liver cirrhosis. Abdominal CTA showed liver cirrhosis, splenic infarct and possible colitis. Microbiology: Blood cultures: 08/08 IMPORT COORDINATOR 1 of 4 bottles Urine cultures: Current Antimicrobials: Previous Antimicrobials: Past History Past Medical History: COPD, diabetes, ESRD, hypertension, hyperlipidemia, sarcoidosis Past Surgical History: cholecystectomy, Other (Renal/Vascath related) Social history: lives with family. denies: smoking (Former), alcohol abuse Family history: no significant family history Medications and Allergies Allergies Allergy/AdvReac Type Severity Reaction Status Date / Time pregabalin [From Lyrica] Allergy Severe Seizure Verified 05/17/17 21:59 Home Medications Medication Instructions Recorded Confirmed Last Taken Type Combivent Inhaler 18 - 103 inhalation INHALATION BID 04/12/17 08/09/18 05/24/17 History Crestor 20 mg PO QHS 04/12/17 08/09/18 05/24/17 History Omeprazole 20 mg PO DAILY #0 04/12/17 08/09/18 05/24/17 History Sodium Bicarbonate 650 mg PO TID 04/12/17 08/09/18 05/24/17 History AtorvaSTATin [Lipitor] 40 mg PO QHS tablet 04/16/17 08/09/18 04/25/17 23:00 Rx 40 mg Detemir (Nf) [Levemir (Nf)] 8 units SUB-Q QHS units 04/16/17 08/09/18 05/24/17 Rx Apixaban [Eliquis] 10 mg PO Q12HR 6 Days tablet 05/20/17 08/09/18 Unknown Rx Cholestyramine (with Sugar) 4 gm PO QDAY #30 mo 05/26/17 08/09/18 Unknown Rx [Questran] Loperamide [Imodium] 2 mg PO Q2H PRN #30 capsule 05/26/17 08/09/18 Unknown Rx Loperamide [Imodium] 2 mg PO Q2HR #60 capsule 05/26/17 08/09/18 Unknown Rx Midodrine [Proamatine] 5 mg PO DAILY #30 tablet 05/26/17 08/09/18 Unknown Rx Apixaban [Eliquis] 5 mg PO BID #60 tablet 05/27/17 08/09/18 08/08/18 23:45 Rx 5mg Detemir (Nf) [Levemir (Nf)] 8 units SUB-Q QAMDIAB #6 units 06/24/18 08/09/18 Unknown Rx Dicyclomine [Bentyl] 10 mg PO QID #30 capsule 06/24/18 08/09/18 Unknown Rx HYDROcodone/APAP 5-325 1 mg PO Q6HR PRN #7 06/24/18 08/09/18 Unknown Rx Ambien 5 mg PO PRN PRN 08/09/18 08/09/18 Unknown History Active Meds: Active Medications Acetaminophen (Tylenol) 650 mg PO Q4H PRN PRN Reason: Pain MILD(1-3)/Fever >100.5/HERRERA Last Admin: 08/10/18 21:46 Dose: 650 mg Apixaban (Eliquis) 2.5 mg PO BID [facility]; Protocol Last Admin: 08/11/18 09:21 Dose: 2.5 mg Atorvastatin Calcium (Lipitor) 40 mg PO QHS [facility] Last Admin: 08/10/18 21:43 Dose: 40 mg Carvedilol (Coreg) 6.25 mg PO BID [facility] Last Admin: 08/11/18 09:23 Dose: 6.25 mg Clonidine HCl (Catapres-Tts Patch) 0.2 mg TD Tu [facility] Last Admin: 08/11/18 09:29 Dose: 0.2 mg Dextrose (D50w (25gm) Syringe) 50 ml IV PRN PRN PRN Reason: Hypoglycemia Dicyclomine HCl (Bentyl) 10 mg PO QID [facility] Last Admin: 08/11/18 14:10 Dose: 10 mg Hydralazine HCl (Apresoline) 10 mg IV Q6H PRN PRN Reason: HIGH BLOOD PRESSURE Sodium Chloride (Nacl 0.9%) 100 mls @ 999 mls/hr IV LEE PRN PRN Reason: Hypotension Insulin Human Lispro (Humalog) 0 unit SUB-Q ACHS [facility]; Protocol Last Admin: 08/11/18 11:56 Dose: Not Given Levofloxacin (Levaquin) 500 mg PO Q48HR [facility] Loperamide HCl (Imodium) 2 mg PO Q2H PRN PRN Reason: Diarrhea Ondansetron HCl (Zofran) 4 mg IV Q8H PRN PRN Reason: Nausea And Vomiting Pantoprazole Sodium (Protonix) 20 mg PO QDAY [facility] Last Admin: 08/11/18 09:24 Dose: 20 mg Sodium Chloride (Sodium Chloride Flush Syringe 10 Ml) 10 ml IV BID [facility] Last Admin: 08/11/18 09:41 Dose: 10 ml Sodium Chloride (Sodium Chloride Flush Syringe 10 Ml) 10 ml IV PRN PRN PRN Reason: LINE FLUSH Review of Systems All systems: negative (aspirin HPI Rest of 10 point review systems negative) Physical Examination - Physical Exam Narrative exam: General appearance: Alert in NAD, conversant Eyes: anicteric sclerae, moist conjunctivae; no lid-lag; PERRLA HENT: Atraumatic; oropharynx clear poor dentition Neck: Trachea midline; supple, no thyromegaly or lymphadenopathy Lungs: shashank crackles CV: RRR, no murmurs Abdomen: Soft, non-tender; no masses or hepatosplenomegaly Extremities: right index tip ulceration with dry / scaly skin no drainage very painful Skin: Normal temperature, turgor and texture; no rash, ulcers or subcutaneous nodules Psych: Appropriate affect, alert and oriented to person, place and time. Neuro: alert and oriented x 3. Moving all extermities Lines: No CVL / PICC - Constitutional Vitals: Vital Signs Temp Pulse Resp BP Pulse Ox 98.7 F 104 H 18 151/68 94 08/11/18 08:22 08/11/18 10:00 08/11/18 10:00 08/11/18 09:29 08/11/18 10:00 Temperature -Last 24 Hours Temperature 98.7 F Temperature 98.1 F Temperature 98.3 F Temperature 98.7 F Results - Labs CBC & Chem 7: 08/10/18 06:12 08/10/18 06:12 Labs: Abnormal lab results 08/10/18 Range/Units 16:10 POC Glucose 116 H (70-105) Assessment and Plan Assessment: 1) Right index painful ulceration: ? unclear etiology DDx. cutaneous manifestation of HCV (vasculitis, porphyria, cryoglobulins) vs sarcoid 2) Abdominal pain: abdominal CTA showed liver cirrhosis, splenic infarct and possible colitis. 3) Lung mass: CT chest right middle lobe mass 2.1 x 2.2 cm abbuting the pleura. Small bronchiectasis in the right upper lobe. 4) Anemia 5) Cirrhosis from hepatitis C (HCV VL 6,6 million in April 2017) 6) Sarcoid from skin biopsy 7) HCV 8) ESRD on HD 9) Blood cultures 08/08 IMPORT COORDINATOR 1 of 4 bottles Plan: -follow-up C-reactive protein (CRP), C2, C4 -hand XR -no systemic abx recommended for now -may need skin biopsy Thank you for your consultation, will follow up with you. Georgina Hazel MD Infectious Diseases Specialist [facility] ([facility] M [phone] O [phone]
[2018-08-11] MEDS: TYLENOL PO PRN ×2 (15:44→21:43)
--- NOTE | 2018-08-11 16:38 | XRay Report ---
FINAL REPORT EXAM: XR HAND 2V RT HISTORY: right index ulcer r/o osteomyelitis TECHNIQUE: Frontal and lateral views right hand Comparison: None FINDINGS: There is no evidence of fracture, subluxation, lytic or blastic change or periosteal reaction. There is evidence of degenerative change of the interphalangeal joints of all digits. The soft tissues are notable for extensive atherosclerotic vascular calcification. There is no evidence of radiopaque foreign body and no definite evidence of gas within the soft tissues. IMPRESSION: 1. No plain film evidence of osteomyelitis. If further imaging is required, MRI may be helpful. 2. Extensive atherosclerotic vascular calcification. 3. Degenerative change interphalangeal joints of all digits.
--- NOTE | 2018-08-11 20:11 | Event Note ---
Date: 08/11/18 Pt with a history of sarcoid and pulmonary fibrosis and new right pleural based mass. While malignancy is a concern, this lesion has the appearance of rounded atelectasis including a "comet tail" sign. Prior to biopsy, the patient should undergo a PET scan of his chest in order to differentiate.
--- NOTE | 2018-08-12 08:13 | Discharge Summary ---
Providers - Providers Date of Admission: 08/08/18 17:12 Attending physician: BEHZAD ARMAS MD 08/08/18 16:55 Consult to Physician [CONS] Routine Comment: CALLED ANSW. SERV./RIDDHI Consulting Provider: ALISON CALDERON Physician Instructions: Reason For Exam: Dialysis, Hyperkalemia 08/09/18 08:53 Consult to Physician [CONS] Routine Comment: called answ. serv./riddhi Consulting Provider: TI KNUTSON Physician Instructions: Reason For Exam: abdominal pain 08/09/18 11:07 Consult to Physician [CONS] Routine Comment: dr. cruz saw patient/riddhi Consulting Provider: IRMA CRUZ Physician Instructions: Reason For Exam: lung ct 08/11/18 08:59 Consult to Wound/ET Nurse [CONS] Routine Reason For Exam: wound eval 08/11/18 11:36 Consult to Interventional Radiology [CONS] Routine Consulting Provider: BETZAIDA WEBBER Reason For Exam: pleural base mass biopsy-right middle lobe Place consult to:: CONSULT CALLED TO Notified:: ALISSA Time called:: 12:00 Comment:: LORENZO 08/11/18 15:19 Consult to Physician [CONS] Routine Comment: Consulting Provider: GODFREY RAMIREZ Physician Instructions: Reason For Exam: second right finger ulceration Primary care physician: INSULATION INSPECTOR Hospitalization Reason for admission: ENCEPHALOPATHY Condition: Fair Hospital course: 68-year-old male with past medical history significant for end stage disease on hemodialysis presented to the emergency department complaining of abdominal pain. Abdominal pain is getting worse with food. Patient had missed dialysis sessions because of abdominal pain Peritoneal Irritation Patient had a CT abdomen that revealed severe atherosclerosis with mural thickening and abd pain on eating. Further GI work up as noted below -CTA revealed no evidence of occlusion or significant stenosis -prior CCY, and duct is prominent but w/o stones; LFTs normal -clinically, patient's abd pain has resolved and he is tolerating a regular diet -continue supportive care -patient okay to be d/c per GI standpoint with clinic follow up Constipation -resolved- repeat CT shows improvement w/ good progression of contrast -continue to hold questran and narcotics -okay to continue lactulose as needed -colonoscopy negative by report 3 years ago, and no focal transition point or mural thickening lung mass -This was evaluated by Pulmonary as patiet has hx of sarcoid and pulmonary fibrosis With this new findings of right pleural base mass, A Biopsy was recommended and IR recommended that While malignancy is a concern, this lesion has the appearance of rounded atelectasis including a "comet tail" sign. Prior to biopsy, the patient should undergo a PET scan of his chest in order to differentiate. This was discussed in detail witht he patient End-stage renal disease on hemodialysis - Patient was seen by Nephrology AND continued with dialysis Hypertensive Urgency Patient has libile bp and in the past had been on midodrine, this was discontinued here due to peristent BP elevation. I advised the patient to only use if BP goes low, A Clonidin patch was used. 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 Outpatient follow up at wound care recommended lEFT TOE NAIL DISLOGED Podiatry follow up Sarcodosis -Recommended Rheumatology follow up Chronic Back Pain. Started on ultram- defer further management to PCP COPD - Continue home medications History of PE - Patient is on Eliquis Disposition: [id number] HOME UNDER [facility] Time spent for discharge: 35 mins Core Measure Documentation - Palliative Care Palliative Care/ Comfort Measures: Not Applicable - Core Measures Any of the following diagnoses?: none - VTE Discharge Requirements Deep Vein Thrombosis/Pulmonary Embolism Present on Admission: No Exam - Physical Exam Narrative exam: Not in cardiopulmonary distress. The patient appeared well nourished and normally developed. Vital signs as documented. Head exam is unremarkable. No scleral icterus . Neck is without jugular venous distension, thyromegaly, or carotid bruits. Lungs are clear to auscultation. Cardiac exam reveals regular rate and Rhythm. First and second heart sounds normal. No murmurs, rubs or gallops. Abdominal exam reveals normal bowel sounds, no masses, no organomegaly and no aortic enlargement. Extremities are nonedematous and both femoral and pedal pulses are normal. Ulceration lateral aspect of third right finger. CALIBRATION TECHNICIAN: Alert and oriented 3. No focal weakness. - Constitutional Vitals: Temp Pulse Resp BP Pulse Ox 98.5 F 84 18 208/91 94 08/12/18 02:47 08/12/18 03:10 08/12/18 02:47 08/12/18 03:10 08/12/18 02:47 Plan Activity: advance as tolerated, fall precautions Diet: diabetic, renal Wound: keep clean and dry, per wound nurse instructions Special Instructions: record daily weights, record daily BP diary, other (AT [facility] IN 1 WEEK) Additional Instructions: follow with timber supervisor and executive sales manager oF Primary doctors choice. outpatient PET scan Follow up with: MARIANNE WESTON MD [Staff Physician] - 7 Days GODFREY RAMIREZ MD [Staff Physician] - 7 Days PRIMARY CARE, [Primary Care Provider] - 3-5 Days SHARLENE WHITE MD [Staff Physician] - 7 Days LUZ ZHENG MD [Staff Physician] - 7 Days Prescriptions: AtorvaSTATin [Lipitor] 40 mg PO QHS #60 tablet Apixaban [Eliquis] 2.5 mg PO BID #60 tablet Carvedilol [Coreg] 12.5 mg PO BID #60 tablet hydrALAZINE [Apresoline TAB] 50 mg PO Q8HR #90 tablet Tramadol HCl [Ultram] 50 mg PO Q6H #15 tablet levoFLOXacin [Levaquin TAB] 500 mg PO Q48HR #3 tablet
[2018-08-12] MEDS ORDERED: COREG PO SCH ×2 (08:25→10:00)
--- NOTE | 2018-08-12 08:58 | Progress Note ---
Assessment and Plan Assessment: 1) Right index painful ulceration: ? unclear etiology DDx. cutaneous manifestation of HCV (vasculitis, porphyria, cryoglobulins) vs sarcoid -There is evidence of degeerative change of the interphalangeal joints of all digits. The soft tissues are notable for extensive artherosclerotic vasular calcification. there is no evidence of radiopaque foreign body and no definite evidence of gas within the soft tissues. No plain film evidence of osetomylitis. - - CRP - 0.20 2) Abdominal pain: abdominal CTA showed liver cirrhosis, splenic infarct and possible colitis. 3) Lung mass: CT chest right middle lobe mass 2.1 x 2.2 cm abbuting the pleura. Small bronchiectasis in the right upper lobe. 4) Anemia 5) Cirrhosis from hepatitis C (HCV VL 6,6 million in April 2017) 6) Sarcoid from skin biopsy 7) HCV 8) ESRD on HD 9) Blood cultures 08/08 SPINNING BATH PERSON 1 of 4 bottles Plan: -follow-up C-reactive protein (CRP), C2, C4 -hand XR -no systemic abx recommended for now -may need skin biopsy 2) Abdominal pain: abdominal CTA showed liver cirrhosis, splenic infarct and possible colitis. 3) Lung mass: CT chest right middle lobe mass 2.1 x 2.2 cm abbuting the pleura. Small bronchiectasis in the right upper lobe. 4) Anemia 5) Cirrhosis from hepatitis C (HCV VL 6,6 million in April 2017) 6) Sarcoid from skin biopsy 7) HCV 8) ESRD on HD 9) Blood cultures 08/08 SPINNING BATH PERSON 1 of 4 bottles Plan: -f/u in office on , for results of DURAN, ANCA, Complement C3, C4 Subjective Principal diagnosis: Abdominal Pain Objective - Constitutional Vitals: Vital Signs Temp Pulse Resp BP Pulse Ox 98.5 F 84 18 162/52 95 08/12/18 08:10 08/12/18 08:10 08/12/18 08:10 08/12/18 08:10 08/12/18 08:10 Temperature -Last 24 Hours Temperature 98.5 F Temperature 98.5 F Temperature 98.4 F Temperature 98.8 F - Labs CBC & Chem 7: 08/10/18 06:12 08/10/18 06:12 Labs: Abnormal lab results 09/18/18 09/18/18 Range/Units 16:33 22:40 POC Glucose 109 H 130 H (70-105)
--- NOTE | 2018-08-12 09:20 | Progress Note ---
Subjective Principal diagnosis: Abdominal Pain Interval history: ESRD: Continue with hemodialysis Friday, outpatient dialysis facility is at [facility] He is currently being followed by [facility] Accelerated hypertension with tachycardia patient started on carvedilol discontinued hydralazine Anemia: Hemoglobin normal continue to monitor erythropoietin all he has needed Dialysis access: Currently working well Needs to be in high protein diet End-stage renal disease care related diet lifestyle changes were discussed with patient at length Mild metabolic acidosis patient counseled and educated to consider baking soda quarter teaspoon in water every day Hemoglobin A1c 5.3 satisfactory blood sugar well controlled Malnutrition: Worsening albumin level from 3.9-3.4 patient needs to be in high protein diet, nutritional consultation should be considered Consider increasing the dose of carvedilol further blood pressure is better Patient needs phosphorus as well as intact PTH level drawn, currently pending results , Objective - Vital Signs Vital signs: Vital Signs - 12hr 08/11/18 08/11/18 08/12/18 21:41 22:00 02:47 Temperature 98.5 F Pulse Rate 90 84 Pulse Rate [ 90 Apical] Respiratory 18 18 Rate Blood Pressure 183/65 208/91 O2 Sat by Pulse 94 94 Oximetry 08/12/18 08/12/18 03:10 08:10 Temperature 98.5 F Pulse Rate 84 84 Pulse Rate [ Apical] Respiratory 18 Rate Blood Pressure 208/91 162/52 O2 Sat by Pulse 95 Oximetry - Lab 08/10/18 06:12 08/10/18 06:12 Most recent lab results Calcium 9.0 mg/dL (8.4-10.2) 08/10/18 06:12
[2018-08-12] MEDS ORDERED: PERCOCET 5/325 PO PRN (09:30)
[2018-08-12] MEDS ORDERED: NACL 0.9 (PRIMING MACHINE ONLY DIALYSIS) MC ONE (09:49)
[2018-08-12] MEDS ORDERED: LEVAQUIN PO SCH (10:00)
--- NOTE | 2018-08-12 11:30 | Event Note ---
Date: 08/12/18 Came to see pt, out on HD per Rn. Discussed with recommendations for CT guided TTNA. needs to see at office if Dh in next 1-2 wk to f/u on this
[2018-08-12] MEDS: HumaLOG SUB-Q SCH ×2 (12:00→13:41)
--- NOTE | 2018-08-12 12:20 | Progress Note ---
Assessment and Plan Assessment: 1) Right index painful ulceration: ? unclear etiology DDx. cutaneous manifestation of HCV (vasculitis, porphyria, cryoglobulins) vs sarcoid - Xray 08/11- there is no evidence of fracture, subluxation, lytic or blastice change or periosteal reation. There is no evidence of degenerative change of the interphalangeal joints of all digits. There is no evidence of radiopaque foreign body and no definite evidence of gas within the soft tissues. No plain film evidence of osteomylitis. -CRP - 0.20 2) Abdominal pain: abdominal CTA showed liver cirrhosis, splenic infarct and possible colitis. 3) Lung mass: CT chest right middle lobe mass 2.1 x 2.2 cm abbuting the pleura. Small bronchiectasis in the right upper lobe. 4) Anemia 5) Cirrhosis from hepatitis C (HCV VL 6,6 million in April 2017) 6) Sarcoid from skin biopsy 7) HCV 8) ESRD on HD 9) Blood cultures 08/08 SAWMILL HAND 1 of 4 bottles Plan: -follow-up in office on 08-27-18, for results of DURAN, Complement C2 and C4 results. -no systemic abx recommended Subjective Date of service: 08/12/18 Principal diagnosis: Abdominal Pain Interval history: Patient was seen in Dialysis. Patient states that he is doing well but having problems with anxiety. Patient stated that he was ready to leave the hospital. Microbiology: Blood cultures: 08/08 SAWMILL HAND 1 of 4 bottles Urine cultures: Current Antimicrobials: Previous Antimicrobials: Objective - Exam Narrative Exam: General appearance: Alert in NAD, conversant Eyes: anicteric sclerae, moist conjunctivae; no lid-lag; PERRLA HENT: Atraumatic; oropharynx clear poor dentition Neck: Trachea midline; supple, no thyromegaly or lymphadenopathy Lungs: shashank crackles CV: RRR, no murmurs Abdomen: Soft, non-tender; no masses or hepatosplenomegaly Extremities: right index tip ulceration with dry / scaly skin no drainage, denies pain Skin: Normal temperature, turgor and texture; no rash, ulcers or subcutaneous nodules Psych: Appropriate affect, alert and oriented to person, place and time. Neuro: alert and oriented x 3. Moving all extermities Lines: No CVL / PICC - Constitutional Vitals: Vital Signs Temp Pulse Resp BP Pulse Ox 97.8 F 82 18 132/76 95 09/19/18 10:05 08/12/18 11:30 08/12/18 10:05 08/12/18 11:30 08/12/18 08:10 Temperature -Last 24 Hours Temperature 97.8 F Temperature 98.5 F Temperature 98.5 F Temperature 98.4 F Temperature 98.8 F - Labs CBC & Chem 7: 08/10/18 06:12 08/10/18 06:12 Labs: Abnormal lab results 08/11/18 08/11/18 08/12/18 Range/Units 16:33 22:40 10:52 POC Glucose 109 H 130 H (70-105) PTH Intact 165.3 H (15-65) pg/mL
[2018-08-12] MEDS: BENTYL PO SCH ×2 (13:41→13:56)
[2018-08-12] MEDS: ELIQUIS PO SCH (13:56)
[2018-08-12] MEDS: PROTONIX PO SCH (13:56)
[2018-08-12] MEDS ORDERED: APRESOLINE PO SCH (14:00)
[2018-08-12 14:01] VITALS: BP 90/60
[2018-08-12] MEDS: SODIUM CHLORIDE FLUSH SYRINGE 10 ML IV SCH (15:43)
== END 2018-08-12 15:20 | disposition home health service (06) | DRG 177 ==
LOC: ED 11:07 → 2B-ACE 17:12
PROVIDERS: ADMIT Internal Medicine; ATTEND Internal Medicine
PROC: 5A1D70Z Performance of Urinary Filtration, Intermittent, Less than 6 Hours Per Day (ICD-10-PCS; principal; 2018-08-10)
PROC: 5A1D70Z Performance of Urinary Filtration, Intermittent, Less than 6 Hours Per Day (ICD-10-PCS; 2018-08-12)
DX: J15.211 Pneumonia due to Methicillin susceptible Staphylococcus aureus (principal); N18.6 End stage renal disease; G93.41 Metabolic encephalopathy; K65.9 Peritonitis, unspecified; J44.0 Chronic obstructive pulmonary disease with (acute) lower respiratory infection; I13.2 Hypertensive heart and chronic kidney disease with heart failure and with stage 5 chronic kidney disease, or end stage renal disease; E72.20 Disorder of urea cycle metabolism, unspecified; J98.11 Atelectasis; E87.2 Acidosis; E46 Unspecified protein-calorie malnutrition; Z68.1 Body mass index [BMI] 19.9 or less, adult; I16.0 Hypertensive urgency; E11.22 Type 2 diabetes mellitus with diabetic chronic kidney disease; F17.210 Nicotine dependence, cigarettes, uncomplicated; E87.5 Hyperkalemia; E78.2 Mixed hyperlipidemia; R91.8 Other nonspecific abnormal finding of lung field; R91.1 Solitary pulmonary nodule; K59.00 Constipation, unspecified; D86.0 Sarcoidosis of lung; K74.60 Unspecified cirrhosis of liver; B19.20 Unspecified viral hepatitis C without hepatic coma; E11.649 Type 2 diabetes mellitus with hypoglycemia without coma; K52.9 Noninfective gastroenteritis and colitis, unspecified; D73.5 Infarction of spleen; J84.10 Pulmonary fibrosis, unspecified; L98.499 Non-pressure chronic ulcer of skin of other sites with unspecified severity; G89.29 Other chronic pain; M54.9 Dorsalgia, unspecified; Z79.4 Long term (current) use of insulin; Z99.2 Dependence on renal dialysis; Z86.711 Personal history of pulmonary embolism; Z86.73 Personal history of transient ischemic attack (TIA), and cerebral infarction without residual deficits; Z79.01 Long term (current) use of anticoagulants
CPT/HCPCS: 36415; 70450; 71045; 71250; 74174; 74176; 80053; 82140; 82962; 83036; 83970; 84100; 85007; 85025; 86021; 86038; 86140; 86160; 87040; 93005; 93010; 96374; A9270-GY; J0360; J1815; J1956; J2270; J7030; Q9967

== ENCOUNTER 2019-02-16 10:12 | Inpatient (IN) | payer MEDICARE ==
[2019-02-16] MEDS ORDERED: BOOSTRIX IM ONE (10:27)
--- NOTE | 2019-02-16 10:32 | Emergency Department Report ---
HPI - General Time Seen by Provider: 02/16/19 10:18 - HPI HPI: 69-year-old Afro-[place] male presents to the emergency department after having a fall off of a high chair/at home and hitting his head. The patient's family was somewhat upstairs and found him on the floor, next to his chair, with a pool of blood and a forehead laceration and hematoma. The patient is on Eliquist. He currently says that he has pain "everywhere." He has a past medical history of end-stage renal disease, hepatitis C, insulin-dependent diabetes, CHF. He did not receive anything for his symptoms in route. Unknown last time he had a tetanus vaccination. ED Past Medical Hx - Past Medical History Hx Hypertension: No Hx Heart Attack/AMI: No Hx Congestive Heart Failure: Yes Hx Diabetes: Yes Hx Deep Vein Thrombosis: No Hx Pulmonary Embolism: No Hx Liver Disease: No Hx Renal Disease: Yes Hx Arthritis: No Hx Seizures: No Hx Kidney Stones: No Hx Asthma: Yes Hx COPD: No Hx Tuberculosis: No Hx Dementia: No Hx HIV: No Additional medical history: dialysis - Surgical History Hx Coronary Stent: No Hx Pacemaker: No Hx Internal Defibrillator: No Hx Cholecystectomy: Yes Additional Surgical History: right chest perm cath, rotator cuff repair, carpal tunnel surgery - Social History Smoking Status: Never Smoker - Medications Home Medications: Home Medications Medication Instructions Recorded Confirmed Last Taken Type Apixaban [Eliquis] 2.5 mg PO BID #60 tablet 08/12/18 02/16/19 Unknown Rx Hydralazine HCl 50 mg PO Q8H 09/09/18 02/16/19 Unknown History Pantoprazole [Protonix TAB] 40 mg PO DAILY 09/09/18 02/16/19 Unknown History Calcium Acetate [Phoslo] 1,334 mg PO TID 02/16/19 02/16/19 Unknown History Sertraline [Zoloft] 50 mg PO QDAY 02/16/19 02/16/19 Unknown History Sevelamer Carbonate [Renvela] 800 mg PO TIDWM 02/16/19 02/16/19 Unknown History risperiDONE [RisperiDONE] 1 mg PO QDAY 02/16/19 02/16/19 Unknown History ED Review of Systems ROS: Stated complaint: FALL Other details as noted in HPI Comment: All other systems reviewed and negative Constitutional: denies: chills, fever Eyes: denies: eye pain, vision change ENT: denies: ear pain, throat pain Respiratory: denies: cough, shortness of breath Cardiovascular: denies: chest pain, palpitations Gastrointestinal: denies: abdominal pain, vomiting Genitourinary: denies: dysuria, discharge Musculoskeletal: back pain, myalgia Skin: other (laceration). denies: rash, lesions Neurological: headache. denies: numbness Physical Exam - Physical Exam Physical Exam: GENERAL: The patient is well-developed well-nourished. HEENT: Normocephalic. Patient has moist mucous membranes. EYES: Extraocular motions are intact. Pupils are equal and reactive to light bilaterally. NECK: Supple. Trachea is midline. CHEST/LUNGS: Clear to auscultation. There is no respiratory distress noted. HEART/CARDIOVASCULAR: Regular. There is no tachycardia. There is no obvious murmur. ABDOMEN: Abdomen is soft, nontender. Patient has normal bowel sounds. There is no abdominal distention. SKIN: There is a non-expanding middle forehead hematoma. In the middle of the hematoma there is a very superficial laceration versus an abrasion. No current bleeding. No foreign body seen. No signs or symptoms of infection. NEURO: The patient is awake but confused. Follows some commands. Withdraws from painful stimuli. MUSCULOSKELETAL: There is no tenderness or deformity. There is no evidence of acute injury. ED Course - Consultations Consultation #1: 02/16/19 18:52 I spoke with the METAL TRIM ERECTOR for Loretta Escobar, who is aware of the patient's presentation, his pending admission and their consult for his ESRD on Dialysis. ED Medical Decision Making - Lab Data Result diagrams: 02/16/19 10:37 02/16/19 10:37 - EKG Data -: EKG Interpreted by Me EKG shows normal: sinus rhythm, axis, intervals, QRS complexes (Q waves to the septal leads), ST-T waves Rate: normal - EKG Data When compared to previous EKG there are: no significant change Interpretation: unchanged when compared t (09/09/18) - Radiology Data Radiology results: report reviewed, image reviewed interpreted by me: Chest x-ray does not show any pneumothorax, pneumonia or obvious focal consolidation. X-ray of the pelvis does not show any fracture, dislocation, or any acute process. X-rays of the thoracic and lumbar spines do not show any fractures, sublu xations, or any acute processes. CT HEAD WITHOUT CONTRAST: HISTORY: Fall, head trauma on anti-coagulation. TECHNIQUE: Sequential CT images without contrast. FINDINGS: Images obtained show bilateral prominence of the sulci and ventricles. There are no abnormal intra- or extra-axial blood or fluid collections. There are no focal masses or evidence of mass effect. The garcía white matter differentiation appears within normal limits. Regions of periventricular decreased attenuation are consistent with microangiopathic ischemic disease. The posterior fossa structures including the fourth ventricle, cerebellum, and brainstem appear normal. IMPRESSION: Evidence of atrophy and microangiopathic ischemic disease. No acute intracranial process noted. No significant change since 09/09/18. Transcribed By: TTR Dictated By: SAILAJA HAYES JR, MD Electronically Authenticated By: SAILAJA HAYES JR, MD Signed Date/Time: 02/16/[address] SCAN OF THE CERVICAL SPINE: HISTORY: Fall, neck pain. TECHNIQUE: Contiguous 1.25 mm axial images of the cervical spine were obtained. Sagittal and coronal reformatted images. FINDINGS: Moderate to severe multilevel degenerative disc disease is noted throughout the cervical spine. C3-4, C4-5 and C5-6 are the most affected levels where there appears to be significant bilateral neural foraminal stenosis. The facet joints are in appropriate relationship with no significant degenerative changes. No evidence for fracture, subluxation or bone lesion. The central canal is unremarkable. The prevertebral soft tissues are normal thickness. IMPRESSION: Moderate to severe degenerative disc disease throughout the cervical spine as described. No acute injury is identified. Transcribed By: TTR Dictated By: SAILAJA HAYES JR, MD Electronically Authenticated By: SAILAJA HAYES JR, MD Signed Date/Time: 02/16/19 1141 - Medical Decision Making This patient presents to the emergency department after he was found having fallen off a chair, with blood underneath him, and a forehead hematoma and laceration. Patient had a stat CT scan of the head without contrast that did not show any bleed, shift, mass, fracture, ischemia, or any other acute process. He also had a CT of the cervical spine that did not show any fracture, subluxation or any acute process. He had a chest x-ray, pelvic x-ray, and x- rays of the thoracic and lumbar spines that did not show any acute process. L abs show some chronic kidney disease as the patient has end-stage renal disease, but the rest of the labs were grossly unremarkable. The patient does display some altered mental status/encephalopathy and for this reason he'll be admitted to hospital for further evaluation and treatment. He was given a tetanus booster. He was accepted for admission by the hospitalist, Dr. Arndt. - Differential Diagnosis skull fx, SAH, hyperammonemia, dysrythmia Critical Care Time: No Critical care attestation.: If time is entered above; I have spent that time in minutes in the direct care of this critically ill patient, excluding procedure time. ED Disposition Clinical Impression: Hypertensive urgency, End-stage renal disease needing dialysis, Traumatic hematoma of forehead Altered mental status Qualifiers: Altered mental status type: unspecified Qualified Code(s): R41.82 - Altered mental status, unspecified Volume overload Qualifiers: Hypervolemia type: unspecified Qualified Code(s): E87.70 - Fluid overload, unspecified Head injury Qualifiers: Encounter type: initial encounter Qualified Code(s): S09.90XA - Unspecified injury of head, initial encounter Disposition: DC-09 OP ADMIT IP TO THIS HOSP Is pt being admited?: Yes Condition: Fair Time of Disposition: 13:15
[2019-02-16] MEDS ORDERED: NORMODYNE IV ONE ×2 (10:49→10:52)
[2019-02-16 10:54] LABS: Basophils # (Auto) 0.1 K/mm3 (0.0-0.1); Basophils % (Auto) 1.1 % (0.0-1.8); Eosinophils # (Auto) 0.2 K/mm3 (0.0-0.4); Eosinophils % (Auto) 2.7 % (0.0-4.3); Hematocrit 41.4 % (35.5-45.6); Hemoglobin 13.3 gm/dl (11.8-15.2); Lymphocytes # (Auto) 1.2 K/mm3 (1.2-5.4); Lymphocytes % (Auto) 18.5 % (13.4-35.0); Mean Corpuscular HGB Conc 32 % (32-34); Mean Corpuscular Volume 86 fl (84-94); Monocytes # (Auto) 0.9 K/mm3 (0.0-0.8); Monocytes % (Auto) 14.8 % (0.0-7.3); Platelet Count 228 K/mm3 (140-440); Red Cell Distribution Width 16.8 % (13.2-15.2)
--- NOTE | 2019-02-16 11:01 | Cat Scan Report ---
CT HEAD WITHOUT CONTRAST: HISTORY: Fall, head trauma on anti-coagulation. TECHNIQUE: Sequential CT images without contrast. FINDINGS: Images obtained show bilateral prominence of the sulci and ventricles. There are no abnormal intra- or extra-axial blood or fluid collections. There are no focal masses or evidence of mass effect. The garcía white matter differentiation appears within normal limits. Regions of periventricular decreased attenuation are consistent with microangiopathic ischemic disease. The posterior fossa structures including the fourth ventricle, cerebellum, and brainstem appear normal. IMPRESSION: Evidence of atrophy and microangiopathic ischemic disease. No acute intracranial process noted. No significant change since 09/09/18.
[2019-02-16 11:04] LABS: INR 0.96 (0.87-1.13)
[2019-02-16 11:05] LABS: Partial Thromboplastin Time 29.8 Sec. (24.2-36.6)
[2019-02-16 11:17] LABS: Albumin 3.4 g/dL (3.9-5); Calcium 9.7 mg/dL (8.4-10.2)
--- NOTE | 2019-02-16 11:45 | Cat Scan Report ---
CT SCAN OF THE CERVICAL SPINE: HISTORY: Fall, neck pain. TECHNIQUE: Contiguous 1.25 mm axial images of the cervical spine were obtained. Sagittal and coronal reformatted images. FINDINGS: Moderate to severe multilevel degenerative disc disease is noted throughout the cervical spine. C3-4, C4-5 and C5-6 are the most affected levels where there appears to be significant bilateral neural foraminal stenosis. The facet joints are in appropriate relationship with no significant degenerative changes. No evidence for fracture, subluxation or bone lesion. The central canal is unremarkable. The prevertebral soft tissues are normal thickness. IMPRESSION: Moderate to severe degenerative disc disease throughout the cervical spine as described. No acute injury is identified.
[2019-02-16] MEDS ORDERED: APRESOLINE IV ONE (12:21)
--- NOTE | 2019-02-16 13:29 | XRay Report ---
LUMBOSACRAL SPINE, 3 VIEWS: History: Trauma Findings: Osteopenia is evident. The vertebral bodies, disk spaces and posterior elements are intact. Mild diffuse facet arthropathy is noted. No compression deformity or malalignment. The SI joints are symmetric and unremarkable. Impression: Osteopenia. Mild lumbar spondylosis. No evidence for acute injury.
--- NOTE | 2019-02-16 13:30 | XRay Report ---
THORACIC SPINE, 2 VIEWS: HISTORY: Trauma. Osteopenia is evident. Mild multilevel degenerative disc disease is noted throughout the thoracic region. No evidence for compression deformity, bone lesion or posterior rib fracture. IMPRESSION: Osteopenia. Thoracic spondylosis. No evidence for acute injury on x-ray.
--- NOTE | 2019-02-16 13:30 | XRay Report ---
AP PELVIS: HISTORY: Trauma. AP view of the pelvis shows normal pelvic contour and soft tissues. The hips are symmetric and within normal limits as are the sacroiliac joints. There are diffuse vascular calcifications suggesting diabetes or peripheral vascular disease. IMPRESSION: No evidence for acute injury.
--- NOTE | 2019-02-16 13:32 | XRay Report ---
AP CHEST: HISTORY: Trauma The interstitium is prominent throughout both lungs. There is mild pleural thickening or scarring at the right apex. Nonspecific interstitial lung disease is suspected. Heart size and pulmonary vessels are within normal limits. No pleural effusion or pneumothorax. The bony structures are demineralized but grossly intact. IMPRESSION: Chronic interstitial lung disease. No acute process is noted.
--- NOTE | 2019-02-16 23:58 | History and Physical Report ---
History of Present Illness Date of examination: 02/16/19 Date of admission: 02/16/19 13:15 Chief complaint: Altered sensorium since a.m. History of present illness: 69-year-old -[place] Citizen male fell from a fell from a high chair and sustained a laceration to the forehead. Was found in blood by the family. Family was upstairs when this happened . They found him with altered sensorium. Patient is on ELIQUIS. Patient has a history of end-stage renal disease and on dialysis. Some shortness of breath present. No chest pain. Patient also has hepatitis C, insulin-dependent diabetes and CHF. Past Medical History Congestive Heart Failure: Yes Diabetes: Yes Renal Disease: Yes Asthma: Yes Additional medical history: dialysis Surgical History Hx Cholecystectomy: Yes Additional Surgical History: right chest perm cath Rotator cuff repair, Carpal tunnel surgery Social History Smoking Status: Never Smoker Family history Htn - Medications Home Medications: Home Medications Medication Instructions Recorded Confirmed Last Taken Type Apixaban [Eliquis] 2.5 mg PO BID #60 tablet 08/12/18 02/16/19 Unknown Rx Hydralazine HCl 50 mg PO Q8H 09/09/18 02/16/19 Unknown History Pantoprazole [Protonix TAB] 40 mg PO DAILY 09/09/18 02/16/19 Unknown History Calcium Acetate [Phoslo] 1,334 mg PO TID 02/16/19 02/16/19 Unknown History Sertraline [Zoloft] 50 mg PO QDAY 02/16/19 02/16/19 Unknown History Sevelamer Carbonate [Renvela] 800 mg PO TIDWM 02/16/19 02/16/19 Unknown History risperiDONE [RisperiDONE] 1 mg PO QDAY 02/16/19 02/16/19 Unknown History Review of Systems ROS: Stated complaint: FALL Other details as noted in HPI Comment: All other systems reviewed and negative Constitutional: denies: chills, fever Eyes: denies: eye pain, vision change ENT: denies: ear pain, throat pain Respiratory: denies: cough, shortness of breath Cardiovascular: denies: chest pain, palpitations Gastrointestinal: denies: abdominal pain, vomiting Genitourinary: denies: dysuria, discharge Musculoskeletal: back pain, myalgia Skin: other (laceration). denies: rash, lesions Neurological: headache. denies: numbness Medications and Allergies Allergies Allergy/AdvReac Type Severity Reaction Status Date / Time pregabalin [From Lyrica] Allergy Severe Seizure Verified 09/09/18 16:23 Home Medications Medication Instructions Recorded Confirmed Last Taken Type Apixaban [Eliquis] 2.5 mg PO BID #60 tablet 08/12/18 02/16/19 Unknown Rx Hydralazine HCl 50 mg PO Q8H 09/09/18 02/16/19 Unknown History Pantoprazole [Protonix TAB] 40 mg PO DAILY 09/09/18 02/16/19 Unknown History Calcium Acetate [Phoslo] 1,334 mg PO TID 02/16/19 02/16/19 Unknown History Sertraline [Zoloft] 50 mg PO QDAY 02/16/19 02/16/19 Unknown History Sevelamer Carbonate [Renvela] 800 mg PO TIDWM 02/16/19 02/16/19 Unknown History risperiDONE [RisperiDONE] 1 mg PO QDAY 02/16/19 02/16/19 Unknown History Exam - Constitutional Vitals: Temp Pulse Resp BP Pulse Ox 98.6 F 86 20 149/69 96 02/16/19 19:59 02/16/19 22:00 02/16/19 19:59 02/16/19 19:59 02/16/19 20:00 General appearance: Present: no acute distress, well-nourished - EENT Eyes: Present: PERRL ENT: hearing intact, clear oral mucosa, other (small laceration on the left forehead-no sutures required) - Neck Neck: Present: supple, normal ROM - Respiratory Respiratory effort: normal Respiratory: bilateral: CTA - Cardiovascular Heart rate: 78 Rhythm: regular Heart Sounds: Present: S1 & S2. Absent: rub, click - Extremities Extremities: no ischemia, pulses intact, pulses symmetrical, No edema Peripheral Pulses: within normal limits - Abdominal General gastrointestinal: Present: soft, non-tender, non-distended, normal bowel sounds Male genitourinary: Present: normal - Integumentary Integumentary: Present: clear, warm, dry - Musculoskeletal Musculoskeletal: generalized weakness, other - Neurologic Neurologic: CNII-XII intact, moves all extremities, other (altered sensorium, lethargic) Results - Labs CBC & Chem 7: 02/16/19 10:37 03/26/19 10:37 Labs: Laboratory Last Values WBC 6.4 K/mm3 (4.5-11.0) 02/16/19 10:37 RBC 4.80 M/mm3 (3.65-5.03) 02/16/19 10:37 Hgb 13.3 gm/dl (11.8-15.2) 02/16/19 10:37 Hct 41.4 % (35.5-45.6) 02/16/19 10:37 MCV 86 fl (84-94) 02/16/19 10:37 MCH 28 pg (28-32) 02/16/19 10:37 MCHC 32 % (32-34) 02/16/19 10:37 RDW 16.8 % (13.2-15.2) H 02/16/19 10:37 Plt Count 228 K/mm3 (140-440) 02/16/19 10:37 Lymph % (Auto) 18.5 % (13.4-35.0) 02/16/19 10:37 Castro % (Auto) 14.8 % (0.0-7.3) H 02/16/19 10:37 Eos % (Auto) 2.7 % (0.0-4.3) 02/16/19 10:37 Baso % (Auto) 1.1 % (0.0-1.8) 02/16/19 10:37 Lymph # 1.2 K/mm3 (1.2-5.4) 02/16/19 10:37 Castro # 0.9 K/mm3 (0.0-0.8) H 02/16/19 10:37 Eos # 0.2 K/mm3 (0.0-0.4) 02/16/19 10:37 Baso # 0.1 K/mm3 (0.0-0.1) 02/16/19 10:37 Seg Neutrophils % 62.9 % (40.0-70.0) 02/16/19 10:37 Seg Neutrophils # 4.0 K/mm3 (1.8-7.7) 02/16/19 10:37 PT 13.4 Sec. (12.2-14.9) 02/16/19 10:37 INR 0.96 (0.87-1.13) 02/16/19 10:37 APTT 29.8 Sec. (24.2-36.6) 02/16/19 10:37 Sodium 142 mmol/L (137-145) 02/16/19 10:37 Potassium 4.9 mmol/L (3.6-5.0) 02/16/19 10:37 Chloride 99.2 mmol/L (98-107) 02/16/19 10:37 Carbon Dioxide 25 mmol/L (22-30) 02/16/19 10:37 Anion Gap 23 mmol/L 02/16/19 10:37 BUN 54 mg/dL (9-20) H 02/16/19 10:37 Creatinine 10.1 mg/dL (0.8-1.5) H 02/16/19 10:37 Estimated GFR 6 ml/min 02/16/19 10:37 BUN/Creatinine Ratio 5 % 02/16/19 10:37 Glucose 94 mg/dL (75-100) 02/16/19 10:37 POC Glucose 76 (70-105) 02/16/19 16:13 Calcium 9.7 mg/dL (8.4-10.2) 02/16/19 10:37 Magnesium 2.40 mg/dL (1.7-2.3) H 02/16/19 10:37 Total Bilirubin 0.40 mg/dL (0.1-1.2) 02/16/19 10:37 AST 52 units/L (5-40) H 02/16/19 10:37 ALT 44 units/L (7-56) 02/16/19 10:37 Alkaline Phosphatase 157 units/L (35-129) H 02/16/19 10:37 Ammonia 35.0 umol/L (25-60) 02/16/19 10:37 Total Creatine Kinase 366 units/L (55-170) H 02/16/19 10:37 Total Protein 7.6 g/dL (6.3-8.2) 02/16/19 10:37 Albumin 3.4 g/dL (3.9-5) L 02/16/19 10:37 Albumin/Globulin Ratio 0.8 % 02/16/19 10:37 Plasma/Serum Alcohol < 0.01 % (0-0.07) 02/16/19 10:37 Blood Type O POSITIVE 02/16/19 10:37 Antibody Screen Negative 02/16/19 10:37 - Imaging and Cardiology EKG: report reviewed (normal sinus rhythm heart rate of 80/m no acute ST-T wave changes) Imaging and Cardiology: Chest x-ray does not show any pneumothorax, pneumonia or obvious focal consolidation. X-ray of the pelvis does not show any fracture, dislocation, or any acute process. X-rays of the thoracic and lumbar spines do not show any fractures, subluxations, or any acute processes. CT HEAD WITHOUT CONTRAST: IMPRESSION: Evidence of atrophy and microangiopathic ischemic disease. No acute intracranial process noted. No significant change since 09/09/18. CT SCAN OF THE CERVICAL SPINE: HISTORY: Fall, neck pain. IMPRESSION: Moderate to severe degenerative disc disease throughout the cervical spine as described. No acute injury is identified. Assessment and Plan Advance Directives: Yes (full code) VTE prophylaxis?: Chemical, Mechanical Plan of care discussed with patient/family: Yes - Patient Problems (1) Acute encephalopathy Current Visit: Yes Status: Acute Plan to address problem: Secondary to uremia Creatinine is 10 Needs hemodialysis (2) Hypertensive urgency Current Visit: Yes Status: Acute Plan to address problem: Continue home antihypertensives And IV hydralazine when necessary (3) End stage renal disease on dialysis Current Visit: Yes Status: Chronic Plan to address problem: Nephrology consultation for hemodialysis (4) GERD (gastroesophageal reflux disease) Current Visit: Yes Status: Chronic Qualifiers: Esophagitis presence: without esophagitis Qualified Code(s): K21.9 - Gastro-esophageal reflux disease without esophagitis Plan to address problem: Continue Protonix (5) Anticoagulation management encounter Current Visit: Yes Status: Chronic Plan to address problem: ELIQUIS on hold for 24-48 hours (6) Traumatic hematoma of forehead Current Visit: Yes Status: Acute Qualifiers: Encounter type: initial encounter Qualified Code(s): S00.83XA - Contusion of other part of head, initial encounter Plan to address problem: Dressing applied Should resolve spontaneously (7) DVT prophylaxis Current Visit: Yes Status: Acute Plan to address problem: On heparin and GI prophylaxis
[2019-02-17] MEDS ORDERED: SODIUM CHLORIDE FLUSH SYRINGE 10 ML IV PRN (00:24)
[2019-02-17] MEDS ORDERED: DILAUDID IV PRN (00:24)
[2019-02-17] MEDS ORDERED: ZOFRAN IV PRN (00:24)
[2019-02-17] MEDS ORDERED: TYLENOL PO PRN (00:24)
[2019-02-17] MEDS: APRESOLINE PO SCH ×4 (01:00→22:39)
[2019-02-17] MEDS: HEPARIN SUB-Q SCH ×3 (01:01→22:40)
[2019-02-17 09:25] LABS: Calcium 9.6 mg/dL (8.4-10.2)
--- NOTE | 2019-02-17 09:28 | Consultation ---
History of Present Illness - Reason for Consult Consult date: 02/17/19 end stage renal disease Medications and Allergies Allergies Allergy/AdvReac Type Severity Reaction Status Date / Time pregabalin [From Lyrica] Allergy Severe Seizure Verified 09/09/18 16:23 Home Medications Medication Instructions Recorded Confirmed Last Taken Type Apixaban [Eliquis] 2.5 mg PO BID #60 tablet 08/12/18 02/16/19 Unknown Rx Hydralazine HCl 50 mg PO Q8H 09/09/18 02/16/19 Unknown History Pantoprazole [Protonix TAB] 40 mg PO DAILY 09/09/18 02/16/19 Unknown History Calcium Acetate [Phoslo] 1,334 mg PO TID 02/16/19 02/16/19 Unknown History Sertraline [Zoloft] 50 mg PO QDAY 02/16/19 02/16/19 Unknown History Sevelamer Carbonate [Renvela] 800 mg PO TIDWM 02/16/19 02/16/19 Unknown History risperiDONE [RisperiDONE] 1 mg PO QDAY 02/16/19 02/16/19 Unknown History Active Meds: Active Medications Acetaminophen (Tylenol) 650 mg PO Q4H PRN PRN Reason: Pain MILD(1-3)/Fever >100.5/[facility]ERA Calcium Acetate (Phoslo) 1,334 mg PO TID [facility] Heparin Sodium (Porcine) (Heparin) 5,000 unit SUB-Q Q12HR [facility] Last Admin: 02/17/19 01:01 Dose: 5,000 unit Documented by: Hydralazine HCl (Apresoline) 50 mg PO Q8HR [facility] Last Admin: 02/17/19 06:35 Dose: 50 mg Documented by: Hydromorphone HCl (Dilaudid) 0.5 mg IV Q3H PRN PRN Reason: Pain , Severe (7-10) Ondansetron HCl (Zofran) 4 mg IV Q8H PRN PRN Reason: Nausea And Vomiting Oxycodone/Acetaminophen (Percocet 5/325) 1 tab PO Q6H PRN PRN Reason: Pain, Moderate (4-6) Pantoprazole Sodium (Protonix) 40 mg PO DAILY [facility] Risperidone (Risperdal) 1 mg PO QDAY [facility] Sertraline HCl (Zoloft) 50 mg PO QDAY [facility] Sevelamer Carbonate (Renvela) 800 mg PO TIDWM [facility] Sodium Chloride (Sodium Chloride Flush Syringe 10 Ml) 10 ml IV BID [facility] Sodium Chloride (Sodium Chloride Flush Syringe 10 Ml) 10 ml IV PRN PRN PRN Reason: LINE FLUSH Exam - Vital Signs Vital signs: Vital Signs Pulse Ox 83 L 02/16/19 10:33 Results - Lab Results 02/16/19 10:37 02/17/19 08:16 Most recent lab results Calcium 9.6 mg/dL (8.4-10.2) 02/17/19 08:16 Magnesium 2.40 mg/dL (1.7-2.3) H 02/16/19 10:37
[2019-02-17] MEDS: RENVELA PO SCH ×3 (09:44→18:21)
[2019-02-17] MEDS: PROTONIX PO SCH (09:45)
[2019-02-17] MEDS: RisperDAL PO SCH (09:45)
[2019-02-17] MEDS: ZOLOFT PO SCH (09:45)
[2019-02-17] MEDS: SODIUM CHLORIDE FLUSH SYRINGE 10 ML IV SCH ×2 (09:46→22:40)
--- NOTE | 2019-02-17 10:29 | Progress Note ---
Assessment and Plan Assessment and plan: --End-stage renal disease on hemodialysis; Received dialysis today, nephrology following HD per schedule --Metabolic encephalopathy; present on admission Resolve patient back to baseline Alert awake oriented 3, supportive care --Hypertensive urgency present on admission Now moderate control, continue current antihypertensives and when necessary medications --Status post fall; Fall precautions, multiple x-rays no acute abnormality or fracture CT head negative for acute abnormality, check carotid Doppler Physical therapy occupational therapy Possible home with home PT versus acute rehabilitation if needed --History of hepatitis C cirrhosis liver; Supportive care --History of chronic anticoagulation on Eliquis Patient may not be a candidate for anticoagulation with history of recurrent falls Hold Eliquis --Superficial laceration/hematoma scalp Supportive care --Moderate malnutrition; nutrition supplements --DVT prophylaxis; SCDs Closely monitor the patient and adjust the management as needed Physical therapy /ambulate as tolerated Possible discharge in 1-2 days if stable History Interval history: Patient seen and examined medical records reviewed Patient feels Better received hemodialysis Alert awake oriented not in acute distress Hospitalist Physical - Constitutional Vitals: Temp Pulse Resp BP Pulse Ox 98.5 F 90 18 161/71 98 02/17/19 07:27 02/17/19 07:27 02/17/19 07:27 02/17/19 07:27 02/17/19 07:27 General appearance: Present: no acute distress, well-nourished - EENT Eyes: Present: PERRL, EOM intact - Neck Neck: Present: supple, normal ROM - Respiratory Respiratory effort: normal Respiratory: bilateral: diminished, rales, negative: rhonchi, wheezing - Cardiovascular Rhythm: regular Heart Sounds: Present: S1 & S2 - Extremities Extremities: no ischemia, No edema - Abdominal General gastrointestinal: soft, non-tender, non-distended, normal bowel sounds - Integumentary Integumentary: Present: clear, warm - Psychiatric Psychiatric: appropriate mood/affect, cooperative - Neurologic Neurologic: moves all extremities Results - Labs CBC & Chem 7: 02/18/19 05:15 02/18/19 05:15 Labs: Laboratory Last Values WBC 6.4 K/mm3 (4.5-11.0) 02/16/19 10:37 RBC 4.80 M/mm3 (3.65-5.03) 02/16/19 10:37 Hgb 13.3 gm/dl (11.8-15.2) 02/16/19 10:37 Hct 41.4 % (35.5-45.6) 02/16/19 10:37 MCV 86 fl (84-94) 02/16/19 10:37 MCH 28 pg (28-32) 02/16/19 10:37 MCHC 32 % (32-34) 02/16/19 10:37 RDW 16.8 % (13.2-15.2) H 02/16/19 10:37 Plt Count 228 K/mm3 (140-440) 02/16/19 10:37 Lymph % (Auto) 18.5 % (13.4-35.0) 02/16/19 10:37 Esmeralda % (Auto) 14.8 % (0.0-7.3) H 02/16/19 10:37 Eos % (Auto) 2.7 % (0.0-4.3) 02/16/19 10:37 Baso % (Auto) 1.1 % (0.0-1.8) 02/16/19 10:37 Lymph # 1.2 K/mm3 (1.2-5.4) 02/16/19 10:37 Esmeralda # 0.9 K/mm3 (0.0-0.8) H 02/16/19 10:37 Eos # 0.2 K/mm3 (0.0-0.4) 02/16/19 10:37 Baso # 0.1 K/mm3 (0.0-0.1) 02/16/19 10:37 Seg Neutrophils % 62.9 % (40.0-70.0) 02/16/19 10:37 Seg Neutrophils # 4.0 K/mm3 (1.8-7.7) 02/16/19 10:37 PT 13.4 Sec. (12.2-14.9) 02/16/19 10:37 INR 0.96 (0.87-1.13) 02/16/19 10:37 APTT 29.8 Sec. (24.2-36.6) 02/16/19 10:37 Sodium 139 mmol/L (137-145) 02/17/19 08:16 Potassium 6.7 mmol/L (3.6-5.0) H* D 02/17/19 08:16 Chloride 100.9 mmol/L (98-107) 02/17/19 08:16 Carbon Dioxide 19 mmol/L (22-30) L 02/17/19 08:16 Anion Gap 26 mmol/L 02/17/19 08:16 BUN 62 mg/dL (9-20) H 02/17/19 08:16 Creatinine 10.8 mg/dL (0.8-1.5) H 02/17/19 08:16 Estimated GFR 6 ml/min 02/17/19 08:16 BUN/Creatinine Ratio 6 % 02/17/19 08:16 Glucose 114 mg/dL (75-100) H 02/17/19 08:16 POC Glucose 131 (70-105) H 02/17/19 07:28 Hemoglobin A1c 6.5 % (4-6) H 02/17/19 00:20 Calcium 9.6 mg/dL (8.4-10.2) 02/17/19 08:16 Magnesium 2.40 mg/dL (1.7-2.3) H 02/16/19 10:37 Total Bilirubin 0.40 mg/dL (0.1-1.2) 02/16/19 10:37 AST 52 units/L (5-40) H 02/16/19 10:37 ALT 44 units/L (7-56) 02/16/19 10:37 Alkaline Phosphatase 157 units/L (35-129) H 02/16/19 10:37 Ammonia 35.0 umol/L (25-60) 02/16/19 10:37 Total Creatine Kinase 366 units/L (55-170) H 02/16/19 10:37 Total Protein 7.6 g/dL (6.3-8.2) 02/16/19 10:37 Albumin 3.4 g/dL (3.9-5) L 02/16/19 10:37 Albumin/Globulin Ratio 0.8 % 02/16/19 10:37 Plasma/Serum Alcohol < 0.01 % (0-0.07) 02/16/19 10:37 Blood Type O POSITIVE 02/16/19 10:37 Antibody Screen Negative 02/16/19 10:37 Active Medications - Current Medications Current Medications: Generic Name Dose Route Start Last Admin Trade Name Freq PRN Reason Stop Dose Admin Acetaminophen 650 mg 02/17/19 00:24 Tylenol PO Q4H PRN Pain MILD(1-3)/Fever >100.5/HERRERA Calcium Acetate 1,334 mg 02/17/19 08:00 Phoslo PO TID H[place]IGH Heparin Sodium (Porcine) 5,000 unit 02/17/19 00:30 02/17/19 09:45 Heparin SUB-Q 5,000 unit Q12HR [place]IGH Administration Hydralazine HCl 50 mg 02/17/19 00:30 02/17/19 06:35 Apresoline PO 50 mg Q8HR [place] Administration Hydromorphone HCl 0.5 mg 02/17/19 00:24 Dilaudid IV Q3H PRN Pain , Severe (7-10) Sodium Chloride 100 mls @ 999 mls/hr 02/17/19 10:01 Nacl 0.9% IV LEE PRN Hypotension Ondansetron HCl 4 mg 02/17/19 00:24 Zofran IV Q8H PRN Nausea And Vomiting Oxycodone/Acetaminophen 1 tab 02/17/19 00:24 Percocet 5/325 PO Q6H PRN Pain, Moderate (4-6) Pantoprazole Sodium 40 mg 02/17/19 10:00 02/17/19 09:45 Protonix PO 40 mg DAILY H[place]IGH Administration Risperidone 1 mg 02/17/19 10:00 02/17/19 09:45 Risperdal PO 1 mg QDAY [place] Administration Sertraline HCl 50 mg 02/17/19 10:00 02/17/19 09:45 Zoloft PO 50 mg QDAY [place] Administration Sevelamer Carbonate 800 mg 02/17/19 08:00 02/17/19 09:44 Renvela PO 800 mg TIDWM [place] Administration Sodium Chloride 10 ml 02/17/19 10:00 02/17/19 09:46 Sodium Chloride Flush Syringe 10 Ml IV 10 ml BID [place] Administration Sodium Chloride 10 ml 02/17/19 00:24 Sodium Chloride Flush Syringe 10 Ml IV PRN PRN LINE FLUSH
[2019-02-17] MEDS ORDERED: NACL 0.9% 100 ML IV PRN (11:00)
[2019-02-17] MEDS ORDERED: NACL 0.9 (PRIMING MACHINE ONLY DIALYSIS) MC ONE (16:33)
[2019-02-18] MEDS: APRESOLINE PO SCH ×4 (06:00→21:17)
[2019-02-18 06:18] LABS: Basophils % (Auto) 0.7 % (0.0-1.8); Eosinophils # (Auto) 0.2 K/mm3 (0.0-0.4); Eosinophils % (Auto) 2.3 % (0.0-4.3); Hematocrit 38.9 % (35.5-45.6); Hemoglobin 12.3 gm/dl (11.8-15.2); Lymphocytes # (Auto) 1.3 K/mm3 (1.2-5.4); Lymphocytes % (Auto) 20.5 % (13.4-35.0); Mean Corpuscular HGB Conc 32 % (32-34); Mean Corpuscular Volume 87 fl (84-94); Monocytes # (Auto) 0.9 K/mm3 (0.0-0.8); Monocytes % (Auto) 14.4 % (0.0-7.3); Platelet Count 203 K/mm3 (140-440); Red Blood Count 4.46 M/mm3 (3.65-5.03); Red Cell Distribution Width 16.2 % (13.2-15.2)
[2019-02-18 06:25] LABS: Albumin 3.1 g/dL (3.9-5); Calcium 8.8 mg/dL (8.4-10.2)
[2019-02-18] MEDS: PULMICORT IH SCH ×2 (07:22→19:59)
[2019-02-18] MEDS: BROVANA NEBU IH SCH ×2 (07:22→19:58)
[2019-02-18] MEDS: RENVELA PO SCH ×3 (08:56→17:05)
[2019-02-18] MEDS: PERCOCET 5/325 PO PRN ×2 (08:59→21:16)
[2019-02-18] MEDS: ZOLOFT PO SCH (09:00)
[2019-02-18] MEDS: HEPARIN SUB-Q SCH ×2 (09:00→21:17)
[2019-02-18] MEDS: PROTONIX PO SCH (09:00)
[2019-02-18] MEDS: SODIUM CHLORIDE FLUSH SYRINGE 10 ML IV SCH ×2 (09:00→21:23)
[2019-02-18] MEDS: RisperDAL PO SCH (09:00)
--- NOTE | 2019-02-18 10:33 | Progress Note ---
Assessment and Plan Impression: * End stage renal disease * Syncope s/p fall w/ head injury --Head CT unremarkable * Hypertension * Secondary hyperparathyroidism Plan: * HD held on Friday due to fall w/ head injury; patient is s/p HD yesterday * Resume TTS schedule today * UF as tolerated * Renal diet * Binders with meals * Stable for d/c from a renal standpoint Subjective Date of service: 02/18/19 Interval history: Patient reports hemorrhoidal pain. Refused to complete dialysis treatment yest erday - only wanted to dialyze 2.5 hours. Objective - Vital Signs Vital signs: Vital Signs - 12hr 02/17/19 02/18/19 02/18/19 22:39 02:03 06:00 Temperature 98.5 F Pulse Rate 94 H 97 H 97 H Pulse Rate [ Bilateral] Pulse Rate [ Throughout] Respiratory 18 Rate Respiratory Rate [Bilateral ] Respiratory Rate [ Throughout] Blood Pressure 167/85 140/71 140/71 Blood Pressure [Right] O2 Sat by Pulse 97 Oximetry 02/18/19 02/18/19 07:23 08:00 Temperature 98.5 F Pulse Rate 96 H Pulse Rate [ 90 Bilateral] Pulse Rate [ 92 H Throughout] Respiratory 18 Rate Respiratory 16 Rate [Bilateral ] Respiratory 16 Rate [ Throughout] Blood Pressure Blood Pressure 178/77 [Right] O2 Sat by Pulse 93 Oximetry - General Appearance General appearance: well-developed, well-nourished EENT: ATNC Respiratory: Present: Clear to Ascultation Cardiology: regular, S1S2 Gastrointestinal: normal, no tenderness, no distended Integumentary: no rash Musculoskeletal: other (no edema) Psychiatric: cooperative - Lab 02/18/19 05:15 02/18/19 05:15 Most recent lab results Calcium 8.8 mg/dL (8.4-10.2) 02/18/19 05:15 Magnesium 2.40 mg/dL (1.7-2.3) H 02/16/19 10:37 Medications & Allergies - Medications Allergies/Adverse Reactions: Allergies pregabalin [From Lyrica] Allergy (Severe, Verified 09/09/18 16:23) 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 Home Medications: Home Medications Medication Instructions Recorded Confirmed Last Taken Type Apixaban [Eliquis] 2.5 mg PO BID #60 tablet 08/12/18 02/16/19 Unknown Rx Hydralazine HCl 50 mg PO Q8H 09/09/18 02/16/19 Unknown History Pantoprazole [Protonix TAB] 40 mg PO DAILY 09/09/18 02/16/19 Unknown History Calcium Acetate [Phoslo] 1,334 mg PO TID 02/16/19 02/16/19 Unknown History Sertraline [Zoloft] 50 mg PO QDAY 02/16/19 02/16/19 Unknown History Sevelamer Carbonate [Renvela] 800 mg PO TIDWM 02/16/19 02/16/19 Unknown History risperiDONE [RisperiDONE] 1 mg PO QDAY 02/16/19 02/16/19 Unknown History Active Medications: Generic Name Dose Route Start Last Admin Trade Name Freq PRN Reason Stop Dose Admin Acetaminophen 650 mg 02/17/19 00:24 Tylenol PO Q4H PRN Pain MILD(1-3)/Fever >100.5/HERRERA Arformoterol Tartrate 15 mcg 02/18/19 08:00 02/18/19 07:22 Brovana Nebu IH 15 mcg Q12HRT [place]IGH Administration Budesonide 0.5 mg 02/18/19 08:00 02/18/19 07:22 Pulmicort IH 0.5 mg Q12HRT [place] Administration Calcium Acetate 1,334 mg 02/17/19 08:00 Phoslo PO TID [place] Heparin Sodium (Porcine) 5,000 unit 02/17/19 00:30 02/18/19 09:00 Heparin SUB-Q 5,000 unit Q12HR [place] Administration Hydralazine HCl 50 mg 02/17/19 00:30 02/18/19 06:00 Apresoline PO 50 mg Q8HR [place] Administration Hydromorphone HCl 0.5 mg 02/17/19 00:24 Dilaudid IV Q3H PRN Pain , Severe (7-10) Sodium Chloride 100 mls @ 999 mls/hr 02/17/19 11:00 Nacl 0.9% IV LEE PRN Hypotension Ondansetron HCl 4 mg 02/17/19 00:24 Zofran IV Q8H PRN Nausea And Vomiting Oxycodone/Acetaminophen 1 tab 02/17/19 00:24 02/18/19 08:59 Percocet 5/325 PO 1 tab Q6H PRN Administration Pain, Moderate (4-6) Pantoprazole Sodium 40 mg 02/17/19 10:00 02/18/19 09:00 Protonix PO 40 mg DAILY [place] Administration Risperidone 1 mg 02/17/19 10:00 02/18/19 09:00 Risperdal PO 1 mg QDAY [place] Administration Sertraline HCl 50 mg 02/17/19 10:00 02/18/19 09:00 Zoloft PO 50 mg QDAY [place] Administration Sevelamer Carbonate 800 mg 02/17/19 08:00 02/18/19 08:56 Renvela PO 800 mg TIDWM [place] Administration Sodium Chloride 10 ml 02/17/19 10:00 02/18/19 09:00 Sodium Chloride Flush Syringe 10 Ml IV 10 ml BID [facility] Administration Sodium Chloride 10 ml 02/17/19 00:24 Sodium Chloride Flush Syringe 10 Ml IV PRN PRN LINE FLUSH
--- NOTE | 2019-02-18 11:02 | Progress Note ---
Assessment and Plan Assessment and plan: --Status post fall; Fall precautions, multiple x-rays no acute abnormality or fracture CT head negative for acute abnormality, check carotid Doppler Physical therapy occupational therapy Possible home with home PT versus acute rehabilitation if needed --End-stage renal disease on hemodialysis; Received dialysis today, nephrology following HD per schedule --Metabolic encephalopathy; present on admission Resolve patient back to baseline Alert awake oriented 3, supportive care --Hypertensive urgency present on admission Now moderate control, continue current antihypertensives and when necessary medications --History of hepatitis C cirrhosis liver; Supportive care --History of chronic anticoagulation on Eliquis Patient may not be a candidate for anticoagulation with history of recurrent falls Hold Eliquis --Superficial laceration/hematoma scalp Supportive care --Moderate malnutrition; nutrition supplements --DVT prophylaxis; SCDs Closely monitor the patient and adjust the management as needed Physical therapy /ambulate as tolerated Possible discharge home tomorrow if stable ( History Interval history: Patient seen and examined medical records reviewed Patient has history of recurrent falls in the past, admitted with fall yesterday Workup so far is negative Received hemodialysis, feels better, mild intermittent dizziness Vital signs noted Hospitalist Physical - Constitutional Vitals: Temp Pulse Resp BP Pulse Ox 98.5 F 96 H 18 178/77 93 02/18/19 08:00 02/18/19 08:00 02/18/19 08:00 02/18/19 08:00 02/18/19 08:00 General appearance: Present: no acute distress, well-nourished, other (laceration scalp and forehead/dressing in place) - EENT Eyes: Present: PERRL, EOM intact - Neck Neck: Present: supple, normal ROM - Respiratory Respiratory effort: normal Respiratory: bilateral: diminished, rales, negative: rhonchi, wheezing - Cardiovascular Rhythm: regular Heart Sounds: Present: S1 & S2 - Extremities Extremities: no ischemia, No edema - Abdominal General gastrointestinal: soft, non-tender, non-distended, normal bowel sounds - Integumentary Integumentary: Present: clear, warm - Psychiatric Psychiatric: appropriate mood/affect, cooperative - Neurologic Neurologic: CNII-XII intact, moves all extremities Results - Labs CBC & Chem 7: 02/18/19 05:15 02/18/19 05:15 Labs: Laboratory Last Values WBC 6.5 K/mm3 (4.5-11.0) 02/18/19 05:15 RBC 4.46 M/mm3 (3.65-5.03) 02/18/19 05:15 Hgb 12.3 gm/dl (11.8-15.2) 02/18/19 05:15 Hct 38.9 % (35.5-45.6) 02/18/19 05:15 MCV 87 fl (84-94) 02/18/19 05:15 MCH 28 pg (28-32) 02/18/19 05:15 MCHC 32 % (32-34) 02/18/19 05:15 RDW 16.2 % (13.2-15.2) H 02/18/19 05:15 Plt Count 203 K/mm3 (140-440) 02/18/19 05:15 Lymph % (Auto) 20.5 % (13.4-35.0) 02/18/19 05:15 [place] % (Auto) 14.4 % (0.0-7.3) H 02/18/19 05:15 Eos % (Auto) 2.3 % (0.0-4.3) 02/18/19 05:15 Baso % (Auto) 0.7 % (0.0-1.8) 02/18/19 05:15 Lymph # 1.3 K/mm3 (1.2-5.4) 02/18/19 05:15 [place] # 0.9 K/mm3 (0.0-0.8) H 02/18/19 05:15 Eos # 0.2 K/mm3 (0.0-0.4) 02/18/19 05:15 Baso # 0.0 K/mm3 (0.0-0.1) 02/18/19 05:15 Seg Neutrophils % 62.1 % (40.0-70.0) 02/18/19 05:15 Seg Neutrophils # 4.0 K/mm3 (1.8-7.7) 02/18/19 05:15 PT 13.4 Sec. (12.2-14.9) 02/16/19 10:37 INR 0.96 (0.87-1.13) 02/16/19 10:37 APTT 29.8 Sec. (24.2-36.6) 02/16/19 10:37 Sodium 137 mmol/L (137-145) 02/18/19 05:15 Potassium 5.2 mmol/L (3.6-5.0) H D 02/18/19 05:15 Chloride 96.8 mmol/L (98-107) L 02/18/19 05:15 Carbon Dioxide 22 mmol/L (22-30) 02/18/19 05:15 Anion Gap 23 mmol/L 02/18/19 05:15 BUN 41 mg/dL (9-20) H 02/18/19 05:15 Creatinine 8.7 mg/dL (0.8-1.5) H 02/18/19 05:15 Estimated GFR 7 ml/min 02/18/19 05:15 BUN/Creatinine Ratio 5 % 02/18/19 05:15 Glucose 119 mg/dL (75-100) H 02/18/19 05:15 POC Glucose 117 (70-105) H 02/18/19 07:45 Hemoglobin A1c 6.5 % (4-6) H 02/17/19 00:20 Calcium 8.8 mg/dL (8.4-10.2) 02/18/19 05:15 Magnesium 2.40 mg/dL (1.7-2.3) H 02/16/19 10:37 Total Bilirubin 0.40 mg/dL (0.1-1.2) 02/18/19 05:15 AST 45 units/L (5-40) H 02/18/19 05:15 ALT 42 units/L (7-56) 02/18/19 05:15 Alkaline Phosphatase 131 units/L (35-129) H 02/18/19 05:15 Ammonia 35.0 umol/L (25-60) 02/16/19 10:37 Total Creatine Kinase 366 units/L (55-170) H 02/16/19 10:37 Total Protein 7.0 g/dL (6.3-8.2) 02/18/19 05:15 Albumin 3.1 g/dL (3.9-5) L 02/18/19 05:15 Albumin/Globulin Ratio 0.8 % 02/18/19 05:15 Plasma/Serum Alcohol < 0.01 % (0-0.07) 02/16/19 10:37 Blood Type O POSITIVE 03/26/19 10:37 Antibody Screen Negative 02/16/19 10:37 Active Medications - Current Medications Current Medications: Generic Name Dose Route Start Last Admin Trade Name Freq PRN Reason Stop Dose Admin Acetaminophen 650 mg 02/17/19 00:24 Tylenol PO Q4H PRN Pain MILD(1-3)/Fever >100.5/HERRERA Arformoterol Tartrate 15 mcg 02/18/19 08:00 02/18/19 07:22 Brovana Nebu IH 15 mcg Q12HRT [place] Administration Budesonide 0.5 mg 02/18/19 08:00 02/18/19 07:22 Pulmicort IH 0.5 mg Q12HRT [place] Administration Calcium Acetate 1,334 mg 02/17/19 08:00 Phoslo PO TID [place] Heparin Sodium (Porcine) 5,000 unit 02/17/19 00:30 02/18/19 09:00 Heparin SUB-Q 5,000 unit Q12HR [place] Administration Hydralazine HCl 50 mg 02/17/19 00:30 02/18/19 06:00 Apresoline PO 50 mg Q8HR [place] Administration Hydrocortisone Acetate 25 mg 02/18/19 11:00 Anucort-Hc MO Q12H PRN Hemorrhoids Hydrocortisone Acetate 25 mg 02/18/19 11:00 Anucort-Hc MO 02/18/19 11:01 ONCE ONE Hydromorphone HCl 0.5 mg 02/17/19 00:24 Dilaudid IV Q3H PRN Pain , Severe (7-10) Sodium Chloride 100 mls @ 999 mls/hr 02/17/19 11:00 Nacl 0.9% IV LEE PRN Hypotension Sodium Chloride 100 mls @ 999 mls/hr 02/18/19 10:31 Nacl 0.9% IV LEE PRN Hypotension Ondansetron HCl 4 mg 02/17/19 00:24 Zofran IV Q8H PRN Nausea And Vomiting Oxycodone/Acetaminophen 1 tab 02/17/19 00:24 02/18/19 08:59 Percocet 5/325 PO 1 tab Q6H PRN Administration Pain, Moderate (4-6) Pantoprazole Sodium 40 mg 02/17/19 10:00 02/18/19 09:00 Protonix PO 40 mg DAILY [facility] Administration Risperidone 1 mg 02/17/19 10:00 02/18/19 09:00 Risperdal PO 1 mg QDAY [place] Administration Sertraline HCl 50 mg 02/17/19 10:00 02/18/19 09:00 Zoloft PO 50 mg QDAY [place] Administration Sevelamer Carbonate 800 mg 02/17/19 08:00 02/18/19 08:56 Renvela PO 800 mg TIDWM [place] Administration Sodium Chloride 10 ml 02/17/19 10:00 02/18/19 09:00 Sodium Chloride Flush Syringe 10 Ml IV 10 ml BID [place] Administration Sodium Chloride 10 ml 02/17/19 00:24 Sodium Chloride Flush Syringe 10 Ml IV PRN PRN LINE FLUSH
[2019-02-18] MEDS ORDERED: NACL 0.9% 100 ML IV PRN (11:30)
[2019-02-18] MEDS ORDERED: ANUCORT-HC PR ONE (12:30)
[2019-02-18] MEDS ORDERED: NACL 0.9 (PRIMING MACHINE ONLY DIALYSIS) MC ONE (14:07)
[2019-02-18] MEDS ORDERED: ANUCORT-HC PR PRN (22:00)
[2019-02-19] MEDS: APRESOLINE PO SCH ×2 (05:30→13:49)
[2019-02-19 05:50] LABS: Calcium 8.2 mg/dL (8.4-10.2)
[2019-02-19] MEDS: PHOSLO PO SCH ×3 (08:30→16:42)
[2019-02-19] MEDS: RENVELA PO SCH ×3 (08:30→16:42)
[2019-02-19] MEDS: ZOLOFT PO SCH (09:27)
[2019-02-19] MEDS: PROTONIX PO SCH (09:27)
[2019-02-19] MEDS: RisperDAL PO SCH (09:28)
[2019-02-19] MEDS: HEPARIN SUB-Q SCH (09:28)
[2019-02-19] MEDS: SODIUM CHLORIDE FLUSH SYRINGE 10 ML IV SCH (09:30)
[2019-02-19] MEDS: PULMICORT IH SCH (09:45)
[2019-02-19] MEDS: BROVANA NEBU IH SCH (09:45)
--- NOTE | 2019-02-19 09:48 | XRay Report ---
LEFT FOOT, 3 views: History: Fall, pain Severe osteopenia and diffuse vascular calcifications are identified. No displaced fracture or bony lesion is identified. Minimal osteoarthritic findings are noted. IMPRESSION: No acute fracture is detected. Severe osteopenia. Peripheral vascular disease.
--- NOTE | 2019-02-19 10:41 | Discharge Summary ---
Providers - Providers Date of Admission: 02/16/19 13:15 Date of discharge: 02/19/19 Attending physician: NARCISA HANNAH 02/16/19 12:21 Consult to Physician [CONS] Routine Comment: Consulting Provider: FAB LANDRY Physician Instructions: Reason For Exam: dialysis 02/18/19 17:38 Physical Therapy Evaluation and Treat [CONS] Routine Comment: Reason For Exam: recurrent falls/PT needs at discharge Primary care physician: CRAIG SAINZ MD Hospitalization Reason for admission: Fall from high chair at home/altered level of consciousness Condition: Stable Pertinent studies: CT head CT cervical spine Xray lumbar spine Xray pelvis CXR Xray foot Hospital course: 69-year-old -Russian male was admitted with h/o fall from from a high chair and sustained a laceration to the forehead. Had extensive work up ,negative for acute abnormality.Evaluated by Nephrology,received HD per schedule. Patient also was evaluated by PT,no PT needs at discharge.Patient ambulatory without support Today patient is comfortable,no new falls since admission,Vital signs st able,Physical exam unremarkable. Cleared by nephrology and PT for discharge and f/u PMD per schedule. Patient is stable at diacharge Discharge Diagnosis: --Status post fall; Fall precautions, multiple x-rays no acute abnormality or fracture CT head negative , Physical therapy occupational therapy Possible home with home PT versus acute rehabilitation if needed --Laceration fore head: wound clean --End-stage renal disease on hemodialysis; Received dialysis today, nephrology following HD per schedule --Metabolic encephalopathy; present on admission Resolve patient back to baseline Alert awake oriented 3, supportive care --Hypertensive urgency present on admission Now moderate control, continue current antihypertensives and when necessary medications --History of hepatitis C cirrhosis liver; Supportive care --History of chronic anticoagulation on Eliquis Patient may not be a candidate for anticoagulation with history of recurrent falls Hold Eliquis till he sees his PMD --Superficial laceration/hematoma scalp Supportive care --Moderate malnutrition; nutrition supplements --DVT prophylaxis; SCDs Closely monitor the patient and adjust the management as needed Physical therapy evaluated, no PT needs at discharge Disposition: DC-01 TO HOME OR SELFCARE Time spent for discharge: 32 min Core Measure Documentation - Palliative Care Palliative Care/ Comfort Measures: Not Applicable - Core Measures Any of the following diagnoses?: none Exam - Constitutional Vitals: Temp Pulse Resp BP Pulse Ox 98.0 F 93 H 20 157/63 96 02/19/19 07:15 02/19/19 07:24 02/19/19 07:15 02/19/19 07:15 02/19/19 07:24 General appearance: Present: no acute distress, well-nourished - EENT Eyes: Present: PERRL, EOM intact - Neck Neck: Present: supple, normal ROM - Respiratory Respiratory effort: normal Respiratory: bilateral: diminished, negative: rales, rhonchi, wheezing - Cardiovascular Rhythm: regular Heart Sounds: Present: S1 & S2 - Extremities Extremities: no ischemia, No edema - Abdominal General gastrointestinal: Present: soft, non-tender, non-distended, normal bowel sounds - Integumentary Integumentary: Present: clear, warm - Musculoskeletal Musculoskeletal: strength equal bilaterally - Psychiatric Psychiatric: appropriate mood/affect, cooperative - Neurologic Neurologic: CNII-XII intact, moves all extremities Plan Activity: advance as tolerated, fall precautions Diet: renal Additional Instructions: Follow up nephrology/hemodialysis per schedule. Fall precautions. Eliquis is held in view of recurrent falls and risk of bleeding. Patient advised to check with primary care physician before resuming Eliquis Follow up with: CRAIG SAINZ MD [Primary Care Provider] - 3-5 Days FAB LANDRY MD [Staff Physician] - 7 Days Prescriptions: Hydrocortisone [Anucort-HC SUPPOS] 25 mg NM Q12H PRN #30 supp.rect PRN Reason: Hemorrhoids Docusate Sodium [Colace] 100 mg PO BID PRN #30 capsule PRN Reason: Constipation
[2019-02-19 13:49] VITALS: BP 172/80
--- NOTE | 2019-02-19 16:23 | Progress Note ---
Objective - Vital Signs Vital signs: Vital Signs - 12hr 02/19/19 02/19/19 02/19/19 05:30 07:15 07:24 Temperature 98.0 F Pulse Rate 93 H 89 Pulse Rate [ 93 H Apical] Pulse Rate [ Throughout] Respiratory 20 Rate Respiratory Rate [ Throughout] Blood Pressure 163/70 157/63 O2 Sat by Pulse 97 96 Oximetry 02/19/19 02/19/19 02/19/19 09:45 09:55 11:12 Temperature Pulse Rate Pulse Rate [ Apical] Pulse Rate [ 87 91 H Throughout] Respiratory 20 Rate Respiratory 18 18 Rate [ Throughout] Blood Pressure O2 Sat by Pulse 100 Oximetry 02/19/19 02/19/19 13:47 13:49 Temperature Pulse Rate 84 84 Pulse Rate [ Apical] Pulse Rate [ Throughout] Respiratory Rate Respiratory Rate [ Throughout] Blood Pressure 172/80 172/80 O2 Sat by Pulse 91 Oximetry - Lab 02/18/19 05:15 02/19/19 05:18 Most recent lab results Calcium 8.2 mg/dL (8.4-10.2) L 02/19/19 05:18 Magnesium 2.40 mg/dL (1.7-2.3) H 02/16/19 10:37 Medications & Allergies - Medications Allergies/Adverse Reactions: Allergies pregabalin [From Lyrica] Allergy (Severe, Verified 09/09/18 16:23) Seizure pt note taker dc'd med 2 mos ago Home Medications: Home Medications Medication Instructions Recorded Confirmed Last Taken Type Hydralazine HCl 50 mg PO Q8H 09/09/18 02/16/19 Unknown History Pantoprazole [Protonix TAB] 40 mg PO DAILY 09/09/18 02/16/19 Unknown History Calcium Acetate [Phoslo] 1,334 mg PO TID 02/16/19 02/16/19 Unknown History Sertraline [Zoloft] 50 mg PO QDAY 02/16/19 02/16/19 Unknown History Sevelamer Carbonate [Renvela] 800 mg PO TIDWM 02/16/19 02/16/19 Unknown History risperiDONE [RisperiDONE] 1 mg PO QDAY 02/16/19 02/16/19 Unknown History Docusate Sodium [Colace] 100 mg PO BID PRN #30 capsule 02/19/19 Unknown Rx Hydrocortisone [Anucort-HC SUPPOS] 25 mg ID Q12H PRN #30 supp.rect 02/19/19 Un known Rx Active Medications: Generic Name Dose Route Start Last Admin Trade Name Freq PRN Reason Stop Dose Admin Acetaminophen 650 mg 02/17/19 00:24 02/19/19 11:12 Tylenol PO 650 mg Q4H PRN Administration Pain MILD(1-3)/Fever >100.5/HERRERA Arformoterol Tartrate 15 mcg 02/18/19 08:00 02/19/19 09:45 Brovana Nebu IH 15 mcg Q12HRT [place] Administration Budesonide 0.5 mg 02/18/19 08:00 02/19/19 09:45 Pulmicort IH 0.5 mg Q12HRT [place] Administration Calcium Acetate 1,334 mg 02/19/19 08:00 02/19/19 11:13 Phoslo PO 1,334 mg TIDWM [place] Administration Heparin Sodium (Porcine) 5,000 unit 02/17/19 00:30 02/19/19 09:28 Heparin SUB-Q 5,000 unit Q12HR [place] Administration Hydralazine HCl 50 mg 02/17/19 00:30 02/19/19 13:49 Apresoline PO 50 mg Q8HR [place] Administration Hydrocortisone Acetate 25 mg 02/18/19 22:00 Anucort-Hc ID Q12H PRN Hemorrhoids Hydromorphone HCl 0.5 mg 02/17/19 00:24 Dilaudid IV Q3H PRN Pain , Severe (7-10) Sodium Chloride 100 mls @ 999 mls/hr 02/18/19 11:30 Nacl 0.9% IV LEE PRN Hypotension Ondansetron HCl 4 mg 02/17/19 00:24 Zofran IV Q8H PRN Nausea And Vomiting Oxycodone/Acetaminophen 1 tab 02/17/19 00:24 02/18/19 21:16 Percocet 5/325 PO 1 tab Q6H PRN Administration Pain, Moderate (4-6) Pantoprazole Sodium 40 mg 02/17/19 10:00 02/19/19 09:27 Protonix PO 40 mg DAILY [place] Administration Risperidone 1 mg 02/17/19 10:00 02/19/19 09:28 Risperdal PO 1 mg QDAY [place] Administration Sertraline HCl 50 mg 02/17/19 10:00 02/19/19 09:27 Zoloft PO 50 mg QDAY [place] Administration Sevelamer Carbonate 800 mg 02/17/19 08:00 02/19/19 11:12 Renvela PO 800 mg TIDWM [place] Administration Sodium Chloride 10 ml 02/17/19 10:00 02/19/19 09:30 Sodium Chloride Flush Syringe 10 Ml IV 10 ml BID [place] Administration Sodium Chloride 10 ml 02/17/19 00:24 Sodium Chloride Flush Syringe 10 Ml IV PRN PRN LINE FLUSH
== END 2019-02-19 16:52 | disposition home or self-care (01) | DRG 70 ==
LOC: ED 10:12 → 2B-ACE 13:15
PROVIDERS: ADMIT Internal Medicine; ATTEND Internal Medicine
PROC: 5A1D70Z Performance of Urinary Filtration, Intermittent, Less than 6 Hours Per Day (ICD-10-PCS; principal; 2019-02-17)
PROC: 5A1D70Z Performance of Urinary Filtration, Intermittent, Less than 6 Hours Per Day (ICD-10-PCS; 2019-02-18)
DX: G93.41 Metabolic encephalopathy (principal); N18.6 End stage renal disease; E44.0 Moderate protein-calorie malnutrition; I12.0 Hypertensive chronic kidney disease with stage 5 chronic kidney disease or end stage renal disease; N25.81 Secondary hyperparathyroidism of renal origin; E87.70 Fluid overload, unspecified; I16.0 Hypertensive urgency; S00.83XA Contusion of other part of head, initial encounter; Z99.2 Dependence on renal dialysis; K21.9 Gastro-esophageal reflux disease without esophagitis; S00.93XA Contusion of unspecified part of head, initial encounter; Y93.89 Activity, other specified; Y92.89 Other specified places as the place of occurrence of the external cause; Y99.8 Other external cause status; J45.909 Unspecified asthma, uncomplicated; Z90.49 Acquired absence of other specified parts of digestive tract; W18.39XA Other fall on same level, initial encounter; K74.60 Unspecified cirrhosis of liver; Z68.21 Body mass index [BMI] 21.0-21.9, adult
CPT/HCPCS: 36415; 70450; 71045; 72070; 72100; 72125; 72170; 80048; 80053; 80320; 82140; 82550; 82962; 83036; 83735; 85025; 85610; 85730; 86850; 86900; 86901; 90715; 93005; 93010; 94640; 94760; G0378; G0480; J0360; J1644; J7030